=== PATIENT | female | born 1980 | race Caucasian/White ===

== ENCOUNTER 2018-12-24 19:12 | Inpatient (IN) | payer BC ==
--- NOTE | 2018-12-24 20:05 | RAD ---
Portable frontal chest radiograph: 12/24/2018 COMPARISON: 08/03/2015 HISTORY: Heart troubles, dyspnea FINDINGS: Cardiac silhouette is prominent. Stable dual lead transvenous pacing device. Right lung carson ears clear. There is blunting of the left costophrenic angle suggesting left pleural fluid. Cardiac silhouette appears enlarged when compared to the prior exam. IMPRESSION: Findings suggesting interval enlargement of the cardiac silhouette when compared to the p rior exam. This could be related to cardiomegaly or pericardial fluid. Small left pleural effusion suspected as well.
[2018-12-24 20:21] LABS: #Basophils 0.1 thou/uL (0.0-0.2); #Eosinphils 0.1 thou/uL (0.0-0.7); #Lymphocytes 1.7 thou/uL (1.20-3.40); #Monocytes 0.6 thou/uL (0.11-0.59); #Neutrophils 5.3 thou/uL (1.40-6.50); %Basophils 1.1 % (0.0-1.0); %Eosinophils 1.1 % (0.0-10.0); %Monocytes 7.9 % (0.0-10.0); Hemoglobin 11.9 g/dL (12.0-16.0); Mean Corpuscular HGB CONC 29.1 g/dL (32.0-36.0); Mean Corpuscular Hemoglobin 24.2 pg (27.0-31.0); Mean Corpuscular Volume 82.9 fL (78.0-98.0); Mean Platelet Volume 8.7 fL (7.4-10.4); Platelet Count 261 thou/uL (130-400); RBC Distribution Width 17.5 % (11.5-14.5); Red Blood Cell (RBC) Count 4.92 mill/uL (4.20-5.40); White Blood Cell (WBC) Count 7.8 thou/uL (4.8-10.8)
[2018-12-24] MEDS ORDERED: Furosemide 40 MG/4 ML VIAL ONE (20:22)
[2018-12-24 20:38] LABS: ALT (SGPT) 34 U/L (8-55); AST (SGOT) 42 U/L (5-34); Albumin 3.4 g/dL (3.5-5.0); Alkaline Phosphatase 173 U/L (40-150); Anion Gap 17 mmol/L (10-20); BUN (Urea Nitrogen) 15 mg/dL (7.0-18.7); Calc. Creatinine Clearance 0 mL/min (70-130); Carbon Dioxide 19 mmol/L (22-29); Chloride 105 mmol/L (98-107); Estimated GFR-MDRD 74; Globulin 3.2 g/dL (2.4-3.5); Glucose 121 mg/dL (70-105); Potassium 5.6 mmol/L (3.5-5.1); Protein, Total 6.6 g/dL (6.0-8.3); Sodium 135 mmol/L (136-145)
[2018-12-24 21:28] LABS: CKMB 8.4 ng/mL (0-6.6)
[2018-12-24] MEDS ORDERED: Aspirin Chewable 81 MG TAB ONE (21:29)
[2018-12-24] MEDS ORDERED: Enoxaparin Sodium 40 MG/0.4 ML SYRINGE ONE (21:42)
[2018-12-24 22:13] LABS: INR-International Normal Ratio 1.3; PTT 32.8 SEC (22.9-36.1); Prothrombin Time 16.3 SEC (12.0-14.7)
[2018-12-24] MEDS ORDERED: hydrALAZINE 20 MG/ML VIAL SLOW IVP PRN (22:17)
[2018-12-24] MEDS ORDERED: Senokot S 8.6-50 MG TAB PO PRN ×2 (22:17)
[2018-12-24] MEDS ORDERED: cloNIDine 0.1 MG TAB PO PRN (22:17)
[2018-12-24] MEDS ORDERED: Benzonatate 100 MG CAP PO PRN (22:17)
[2018-12-24] MEDS ORDERED: Nitroglycerin 0.4 MG TAB (25 Tab Bottle) SL PRN (22:17)
[2018-12-24] MEDS ORDERED: Sodium Chloride 0.65% Nasal 44 ML BOT EA NARE PRN (22:17)
[2018-12-24] MEDS ORDERED: Bisacodyl 5 MG TAB PO PRN ×2 (22:17)
[2018-12-24] MEDS ORDERED: Diabetic Tussin 200 MG/10 ML UDCUP PO PRN (22:17)
[2018-12-24] MEDS ORDERED: Ondansetron PF 4 MG/2 ML Vial IVP PRN ×2 (22:17)
[2018-12-24 22:58] LABS: BHCG - Serum Negative (NEGATIVE); Pregs Control Background? CLEAR/WHITE (CLR/WHITE); Pregs Control Bar Appear? YES (CONTROL BAR)
[2018-12-25] VITALS: BMI 19.8
[2018-12-25] MEDS ORDERED: Carvedilol 3.125 MG TAB PO SCH (00:30)
--- NOTE | 2018-12-25 00:50 | HP ---
PRIMARY CARE PHYSICIAN: Gwendolyn Mcleod DO CHIEF COMPLAINT: "Fluid retention and shortness of breath." HISTORY OF PRESENTING ILLNESS: Ms. Valle is a 38-year-old female with past medical history of cardiomyopathy as well as history of arrhythmia, status post ablation, as well as history of sick sinus syndrome, status post pacemaker placement, who presented to the emergency room with above-mentioned complaint. History is mainly obtained by the patient herself and electronic medical records have been reviewed. Ms. Colby was last admitted to our facility in August 2015 for same symptoms. She reports that she has been feeling fine for the last few years up until last 2 weeks. She has not really been taking any medications for the last year or so. She has not had any cardiology followup in all these years. She has been seen by Dr. Herbert, while she was in the hospital in 2016. Ms. Valle reports that she has been noticing more and more shortness of breath for the last two weeks and has been noticing that she has been retaining fluid. When I asked her where did she feel that she is retaining fluid: She reports "everywhere". She also endorses orthopnea without any PND. She denies any other recent illnesses like fever, chills, cough, rhinorrhea, or sore throat. She denies any chest pain or chest discomfort. Denies any dysuria, frequency, or urgency. She denies any nausea, vomiting, or diarrhea. She does endorse drug use and her last drug use was about 2 weeks ago. She reports using methamphetamine. Upon presentation to the ER, her blood pressure was 156/96 and she was saturating 92% on 2 L oxygen. Her EKG showed intermittently paced rhythm, left ventricular hypertrophy, and QRS widening, and her chest x-ray showed worsening cardiomegaly. Her lab work was consistent with elevated BNP of 3900 and elevated cardiac enzymes with troponin of 1.616 and CK-MB of 8.4. She was given 40 mg of Lasix as well as one dose of Lovenox 1 mg/kg and is now being admitted to Internal Medicine Service for acute CHF exacerbation. PAST MEDICAL HISTORY: 1. Second-degree heart block for which she underwent pacemaker insertion. 2. History of acute myocarditis with cardiomyopathy. 3. History of anxiety and depression. 4. History of cardiomyopathy. 5. History of atrial tachycardia, status post ablation x2. PAST SURGICAL HISTORY: section and tubal ligation as well as pacemaker insertion. SOCIAL HISTORY: She smokes about 3 to 4 cigarettes a day. Denies any alcohol abuse. FAMILY HISTORY: No history of coronary artery disease or stroke in her family. ALLERGIES: INCLUDE PENICILLIN. CURRENT MEDICATIONS: None reviewed with the patient. REVIEW OF SYSTEMS: A 14-point review of system is done. It is negative except for those mentioned in the history and physical. LABORATORY DATA: Her CBC shows hemoglobin of 11.9, otherwise unremarkable. Serum chemistry shows sodium of 135, potassium 5.6, bicarb 19, blood sugar 121, AST 42, alkaline phosphatase 173, CK-MB 8.4, troponin 1.616. BNP of 3962. test is negative. Chest x-ray by my review shows cardiomegaly with pulmonary vascular congestion. EKG by my review shows independently paced rhythm at 82 beats per minute with left ventricular hypertrophy. PHYSICAL EXAMINATION: VITAL SIGNS: Upon presentation, blood pressure 156/96, respirations 20, saturating 92% on 2 L oxygen, pulse of 64, and temperature 99.9. GENERAL: The patient is in no acute distress. She appears hyperactive, however, mother is at bedside. She is awake, alert, and oriented x3. HEENT: Mucous membrane is moist and pink. No oropharyngeal exudate or erythema. Head is normocephalic and atraumatic. Pupils are equal and reactive to light and accommodation. Extraocular movement intact. NECK: Supple without any lymphadenopathy, JVD, or bruit. CHEST: Clear to auscultation without any wheezing, rales, or rhonchi. Rate and rhythm are regular without any murmurs, rubs, or gallops. Pacemaker to the left anterior chest wall is noticed. ABDOMEN: Soft and nontender. There is no rebound, guarding, or rigidity. She has mild distention of the abdomen. EXTREMITIES: Show +1 pitting edema bilaterally. SKIN: Show erythema to her knees bilaterally as well as her fingers which she reports is chronic for her. PSYCHIATRIC: Hyperactive effect. NEUROLOGICAL: Nonfocal. IMPRESSION AND PLAN: 1. Acute on chronic systolic congestive heart failure exacerbation. The patient has been noncompliant with the medications. She most likely has worsening of her ejection fraction because of underlying cardiomyopathy as well as continued drug abuse. We will diurese her with Lasix twice a day and restart her on beta max, MICHAEL inhibitor, and aspirin. We will consult Cardiology for further recommendations. Strict I's and O's will be monitored, and she will be on fluid restricted heart healthy diet. We will also consult [facility] Failure [facility] as well as cardiac rehab while she is here. 2. Elevated troponin. This is likely type 2 AZ from demand ischemia from congestive heart failure. We will continue to trend serial cardiac enzymes and restart beta max, MICHAEL inhibitor/ARB, and aspirin. She will be continued on therapeutic dose of Lovenox for now 1 mg/kg. 3. Hyperkalemia. We will give Lasix and monitor potassium levels closely. She has no evidence of renal failure. 4. Metabolic acidosis, most likely due to poor peripheral perfusion from congestive heart failure. Recheck in the morning. 5. History of sick sinus syndrome, status post pacemaker placement. We will obtain a pacemaker interrogation print out. 6. History of cardiomyopathy. Echocardiogram will be repeated. 7. Hypertension. Restart beta max and ARB and adjust the dose as needed. 8. Drug abuse. The patient has been counseled. 9. DVT and GI prophylaxis. DISPOSITION: Ms. Valle is currently being admitted to the hospital with acute on chronic congestive heart failure exacerbation and non-ST elevation AZ/type 2 AZ. Further management will depend upon her clinical course. ESTIMATED LENGTH OF STAY: At this time is at least 2 to 3 midnights. Job ID: [id number]
[2018-12-25 03:05] LABS: #Eosinphils 0.1 thou/uL (0.0-0.7); #Lymphocytes 1.8 thou/uL (1.20-3.40); #Monocytes 0.6 thou/uL (0.11-0.59); %Basophils 0.7 % (0.0-1.0); %Eosinophils 1.7 % (0.0-10.0); %Lymphocytes 26.7 % (21.0-51.0); %Monocytes 9.6 % (0.0-10.0); %Neutrophils 61.3 % (42.0-75.0); Hemoglobin 11.6 g/dL (12.0-16.0); Mean Corpuscular HGB CONC 30.7 g/dL (32.0-36.0); Mean Corpuscular Hemoglobin 24.8 pg (27.0-31.0); Mean Corpuscular Volume 80.7 fL (78.0-98.0); Mean Platelet Volume 8.9 fL (7.4-10.4); Platelet Count 253 thou/uL (130-400); RBC Distribution Width 17.4 % (11.5-14.5); Red Blood Cell (RBC) Count 4.67 mill/uL (4.20-5.40); White Blood Cell (WBC) Count 6.6 thou/uL (4.8-10.8)
[2018-12-25 03:33] LABS: ALT (SGPT) 31 U/L (8-55); AST (SGOT) 43 U/L (5-34); Albumin 3.3 g/dL (3.5-5.0); Alkaline Phosphatase 169 U/L (40-150); Anion Gap 16 mmol/L (10-20); BUN (Urea Nitrogen) 14 mg/dL (7.0-18.7); Bilirubin, Total 0.8 mg/dL (0.2-1.2); Calc. Creatinine Clearance 62 mL/min (70-130); Calcium 9.1 mg/dL (7.8-10.44); Carbon Dioxide 21 mmol/L (22-29); Chloride 103 mmol/L (98-107); Estimated GFR-MDRD 72; Globulin 3.2 g/dL (2.4-3.5); Glucose 108 mg/dL (70-105); Magnesium 1.7 mg/dL (1.6-2.6); Protein, Total 6.5 g/dL (6.0-8.3); Sodium 136 mmol/L (136-145)
[2018-12-25 03:54] LABS: Troponin I 2.235 ng/mL (< 0.028)
[2018-12-25] MEDS: Furosemide 40 MG/4 ML VIAL SLOW IVP SCH ×2 (05:46→13:41)
--- NOTE | 2018-12-25 08:15 | PDOC.PN ---
- Subjective Encounter Start Date: 12/25/18 Encounter Start Time: 10:10 Subjective: Patient reports SOB resolved. Urinating very well with Lasix. No other -: complaints. No chest pain. - Objective MAR Reviewed: Yes Vital Signs & Weight: Vital Signs (12 hours) Temp Pulse Resp BP BP Pulse Ox 12/25/18 04:00 97.6 F 18 138/92 H 99 12/24/18 23:49 97.9 F 67 18 163/89 H 100 12/24/18 22:20 99 Weight Weight 97 lb 14.4 oz I&O: 12/24/18 12/25/18 12/26/18 06:59 06:59 06:59 Intake Total 480 Output Total 1500 Balance -1020 Result Diagrams: 12/25/18 02:43 12/25/18 02:43 Phys Exam - Physical Examination Constitutional: NAD HEENT: moist MMs Respiratory: no wheezing, no rales, no rhonchi Cardiovascular: RRR, no significant murmur Gastrointestinal: soft, positive bowel sounds Musculoskeletal: no edema Neurological: non-focal, moves all 4 limbs Psychiatric: normal affect, A&O x 3 Dx/Plan (1) Acute on chronic systolic CHF (congestive heart failure) Code(s): I50.23 - ACUTE ON CHRONIC SYSTOLIC (CONGESTIVE) HEART FAILURE Status : Acute Comment: ECHO, Lasix (2) NSTEMI (non-ST elevated myocardial infarction) Code(s): I21.4 - NON-ST ELEVATION (NSTEMI) MYOCARDIAL INFARCTION Status: Acute Comment: likely due to demand ischemia from CHF exacerbation (3) cardiomyopathy Code(s): O90.3 - PERIPARTUM CARDIOMYOPATHY Status: Chronic (4) Drug abuse Code(s): F19.10 - OTHER PSYCHOACTIVE SUBSTANCE ABUSE, UNCOMPLICATED Status: Chronic Comment: methamphetamine, patient determined to quit, planning on going to drug rehab after discharge (5) Sick sinus syndrome Code(s): I49.5 - SICK SINUS SYNDROME Status: Chronic Comment: s/p pacemaker - Plan cont current plan of care, DVT proph w/lovenox, DVT proph w/SCDs continue diuresis -: Lovenox, ASA, ARB, Carvedilol, Cardiology consult * . - Discharge Day Encounter end time: 10:20
[2018-12-25] MEDS: Aspirin 325 MG TAB PO SCH (08:17)
[2018-12-25] MEDS: Famotidine 20 MG TAB PO SCH ×2 (08:17→20:19)
[2018-12-25] MEDS: Carvedilol 3.125 MG TAB PO SCH ×2 (08:17→20:19)
[2018-12-25] MEDS: Losartan 25 MG TAB PO SCH (08:18)
[2018-12-25] MEDS: Enoxaparin Sodium 60 MG/0.6 ML SYRINGE SC SCH ×2 (08:18→20:18)
[2018-12-25 11:16] LABS: Critical Call Chem Troponin I RESULT DECREASING; Troponin I 2.019 ng/mL (< 0.028)
--- NOTE | 2018-12-25 17:41 | CON ---
DATE OF CONSULTATION: 12/25/2018 INDICATION FOR CONSULTATION: A 38-year-old female with a history of cardiomyopathy. HISTORY OF PRESENT ILLNESS: This very unfortunate 38-year-old female was followed by me for quite some time. I have not seen in the last several years. She has had history of SVT in the past, underwent ablation. She then eventually, I believe had an AVJ ablation, underwent pacemaker insertion. She has had severe decrease in left ventricular systolic function. Ejection fraction was low at 10% to 15%. She then; however, had improvement in ejection fraction all the way up to about 50%. She had been lost to followup. Apparently almost 6 months to a year, she stopped taking her medication. She had been doing methamphetamines again and had noticed that she had increasing lower extremity edema, shortness of breath, and was advised to be seen in the office. We did schedule her for an appointment, but she has not yet been seen in the office. She presented to the emergency room after she has started having more lower extremity edema and shortness of breath. Her echocardiogram at this time shows again ejection fraction of 30% to 35% at this time at best. She has pacemaker leads noted in the right atrium and right ventricle. She does have what appears to be left ventricular hypertrophy also and has a small pericardial effusion. At this time, she was given IV diuretics in the emergency room and has diuresed a significant amount. Her breathing has improved. Her vital signs remained stable. Her blood pressure is elevated today at 150/89 and earlier today was 138/92. She has put out over 1 L negative since she has been admitted to the floor. At this time, we just need to continue with her medical treatment and we will see whether the ejection fraction improves. If she does not improve in ejection fraction, she may need to undergo implantation with an AICD. PAST MEDICAL HISTORY: Significant for the SVT ablations, history of cardiomyopathy, and pacemaker insertion. She has history of anxiety and depression. She has had a . She has had bilateral tubal ligations. SOCIAL HISTORY: She is . She has 2 children. She continues to smoke only a few cigarettes a day apparently, but unfortunately still continues to do methamphetamines. MEDICATIONS: Her present medications, she does no longer taking medicines. Previously, she had been taking; 1. Coreg. 2. Aldactone. 3. Lisinopril. 4. Lexapro. 5. As well as Lasix. 6. Also p.r.n. [place]. REVIEW OF SYSTEMS: A 12-point review of systems unremarkable. There was no history of present illness. ALLERGIES: SHE IS ALLERGIC TO PENICILLIN. FAMILY HISTORY: Noncontributory. There is no early heart disease of this sort. PHYSICAL EXAMINATION: GENERAL: Reveals a very thin, ill-appearing female. VITAL SIGNS: Blood pressure as noted was 130/92 and increased up to 150/89. She is afebrile. Heart rate is in the 60s and she was pacing majority of the time. She has atrial pacing and ventricular pacing. She has according to the evaluation of the pacemaker, she has ventricular pacing about 37% of the time. CHEST: Clear to auscultation. CARDIOVASCULAR: At this time reveals a regular rate and rhythm. I do not hear any heart murmurs, bruits, thrills, heaves, or bruits. ABDOMEN: Slightly tender, somewhat distended, but most likely appears to be some ascites. Positive bowel sounds are present. EXTREMITIES: Show no clubbing or cyanosis. Pedal pulses are present. NEUROLOGIC: She appears to be intact. She is tearful during the evaluation. SKIN: Warm and dry. LABORATORY DATA: Shows a hemoglobin of 11.6, WBC of 6.6, and platelet count was 253,000. Her INR was 1.3. Her potassium was 4.0 and creatinine 0.89. Troponin I was elevated at 2.2, is now decreased down to 2.0. BNP was elevated at 3887. IMPRESSION AND PLAN: 1. Acute on chronic systolic heart failure with elevated BNP, abnormal cardiac enzymes, most likely due to demand ischemia associated with cardiomyopathy. She will continue on her diuretics as well as angiotensin-converting enzyme inhibitors and beta blockers. 2. History of pacemaker insertion. On the echocardiogram today, it was noted on the atrial lead, there appears to be some type of thrombus formation or fibrin deposit. It does not appear to be vegetation, but is most likely not a vegetation since the WBC is not elevated and she has not been febrile. Does not appear to be endocarditis. Given her decreased ejection fraction, she may need to be placed on anticoagulation for a while to see if this will resolve, but she has smoke formation of the left ventricle due to severe decrease in left ventricular systolic function. 3. History of supraventricular tachycardia. It appears by evaluation of pacemaker. She may still be having supraventricular tachycardia at times, but has had a possible AVJ ablation. She has not had any significant ventricular high rates associated with this. We will re-evaluate the patient when she has been treated medically. I suspect she will be in the hospital for the next few days. After that, she has agreed to go to inpatient rehab for her illegal drug use. Job ID: [id number]
[2018-12-25] MEDS: Acetaminophen 325 MG TAB PO PRN (20:19)
[2018-12-26 04:37] LABS: Hemoglobin 13.3 g/dL (12.0-16.0); Platelet Count 275 thou/uL (130-400)
[2018-12-26 05:04] LABS: Critical Call Chem Troponin I RESULT DECREASING; Troponin I 1.671 ng/mL (< 0.028)
[2018-12-26] MEDS: Furosemide 40 MG/4 ML VIAL SLOW IVP SCH (05:33)
--- NOTE | 2018-12-26 08:00 | PDOC.PN ---
- Subjective Encounter Start Date: 12/26/18 Encounter Start Time: 13:40 Subjective: Patient with marked improvement in SOB. No more leg swelling. Ambulating -: well without SOB. A bit anxious being stuck in hospital. Some soreness to -: back from being in bed. Mother worried she will resume drugs when sheleaves - Objective MAR Reviewed: Yes Vital Signs & Weight: Vital Signs (12 hours) Temp Pulse Resp BP Pulse Ox 12/26/18 04:00 98.3 F 60 19 132/75 97 Weight Weight 91 lb 8 oz I&O: 12/25/18 12/26/18 12/27/18 06:59 06:59 06:59 Intake Total 480 1230 Output Total 1500 2350 Balance -1020 -1120 Result Diagrams: 12/26/18 04:29 12/26/18 04:29 Additional Labs: Accuchecks 12/25/18 11:02 POC Glucose 97 Phys Exam - Physical Examination Constitutional: NAD HEENT: moist MMs Respiratory: no wheezing, no rales, no rhonchi Cardiovascular: RRR Gastrointestinal: soft, positive bowel sounds Musculoskeletal: no edema mild TTP bilateral lower thoracic spine and paraspinal muscles Neurological: non-focal, moves all 4 limbs Psychiatric: A&O x 3 Deviation from normal: labile affect Dx/Plan (1) Acute on chronic systolic CHF (congestive heart failure) Code(s): I50.23 - ACUTE ON CHRONIC SYSTOLIC (CONGESTIVE) HEART FAILURE Status : Acute Comment: ECHO with 30-35% EF, thrombus on RA pacer lead, getting Lasix , Coreg, Losartan, Lovenox, will leave decision on prolonged anticoagulation up to Dr. Herbert (2) NSTEMI (non-ST elevated myocardial infarction) Code(s): I21.4 - NON-ST ELEVATION (NSTEMI) MYOCARDIAL INFARCTION Status: Acute Comment: likely due to demand ischemia from CHF exacerbation (3) cardiomyopathy Code(s): O90.3 - PERIPARTUM CARDIOMYOPATHY Status: Chronic (4) Drug abuse Code(s): F19.10 - OTHER PSYCHOACTIVE SUBSTANCE ABUSE, UNCOMPLICATED Status: Chronic Comment: methamphetamine, patient determined to quit, planning on going to drug rehab after discharge (5) Sick sinus syndrome Code(s): I49.5 - SICK SINUS SYNDROME Status: Chronic Comment: s/p pacemaker - Plan cont current plan of care, PT/OT, DVT proph w/lovenox Plan for Lifevest. Mother trying to get patient into inpatient rehab for -: drug use. * . - Discharge Day Encounter end time: 13:50
[2018-12-26] MEDS: Losartan 25 MG TAB PO SCH (08:04)
[2018-12-26] MEDS: Aspirin 325 MG TAB PO SCH (08:04)
[2018-12-26] MEDS: Enoxaparin Sodium 60 MG/0.6 ML SYRINGE SC SCH (08:05)
[2018-12-26] MEDS: Carvedilol 3.125 MG TAB PO SCH ×2 (08:05→22:28)
[2018-12-26] MEDS: Famotidine 20 MG TAB PO SCH ×2 (08:05→22:28)
--- NOTE | 2018-12-26 11:32 | PDOC.CTH ---
Cardiology Progress Note - Subjective The pt seen and examined. No overnight events. No cardiac complaints. She walked with PT without any SOB or other cardiac complaints. - Objective Vital Signs Temp Pulse Resp BP Pulse Ox 12/26/18 08:01 99.4 F 64 18 131/81 98 12/26/18 04:00 98.3 F 60 19 132/75 97 Weight 91 lb 8 oz 12/25/18 12/26/18 12/27/18 06:59 06:59 06:59 Intake Total 480 1230 Output Total 1500 2350 Balance -1020 -1120 - Physical Examination General/Neuro: alert & oriented x3 Neck: no JVD present Lungs: CTA Heart: RRR Abdomen: soft Extremities: other: (No edema) - Telemetry Telemetry Rhythm: SR - Labs Result Diagrams: 12/26/18 04:29 12/26/18 04:29 Troponin/CKMB CK-MB (CK-2) 8.4 ng/mL (0-6.6) H* 12/24/18 20:04 Troponin I 1.671 ng/mL (< 0.028) H* 12/26/18 04:29 - Assessment/Plan 1. Acute on chronic systolic HF with EF 25-30% - On ARB, bblocker, and Lasix; will start Entresto 24/26mg BID from today. May stop Losartan 2. NSTEMI 2/2 demand ischemia from CHF exacerbation - stable; denied any cardiac complaints. 3. CMY - will order LifeVest on d/c 4. Hx of PM placement 2/2 SVT RFA in 2002 - 5. Ilicit drug abuse - cardiomyopathy; patient determined to quit, planning on going to drug rehab after discharge 6. 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 "smoke" in LV by TTE - May start OAC on D/C OCT reviewed * Echo on 12/25/2018 with EF 25-30%, "smoke" formation in LV, mild-mod LVH, mild LA, thrombus vs Vegetation noted to PM lead in RA, mild MR, TR, and VA, mild pericardiac effusion. Pt. seen and eval. by me. I agree with the A/P by the QUALITY TESTER. Chest clear. RRR. Continue meds as above. If tolerating meds then home tomorrow. Review of Systems - Review of Systems Constitutional: reports: no symptoms reported EENTM: reports: no symptoms reported Respiratory: reports: no symptoms reported Cardiac (ROS): reports: no symptoms reported ABD/GI: reports: no symptoms reported : reports: no symptoms reported Musculoskeletal: reports: no symptoms reported
[2018-12-26] MEDS ORDERED: Sacubitril 24.5 MG/Valsartan 25.5 MG TABLET PO SCH (12:00)
[2018-12-26] MEDS ORDERED: Ibuprofen 200 MG TAB PO PRN (13:19)
[2018-12-26] MEDS: Furosemide 40 MG TAB PO SCH (13:25)
[2018-12-26] MEDS: Acetaminophen 325 MG TAB PO PRN (14:10)
[2018-12-26] MEDS: Apixaban 5 MG TAB PO SCH (22:27)
[2018-12-26] MEDS: Sacubitril 24.5 MG/Valsartan 25.5 MG TABLET PO SCH (22:27)
[2018-12-27 06:49] LABS: Anion Gap 17 mmol/L (10-20); BUN (Urea Nitrogen) 24 mg/dL (7.0-18.7); Calc. Creatinine Clearance 65 mL/min (70-130); Calcium 9.1 mg/dL (7.8-10.44); Carbon Dioxide 23 mmol/L (22-29); Chloride 102 mmol/L (98-107); Estimated GFR-MDRD 86; Glucose 140 mg/dL (70-105); Sodium 139 mmol/L (136-145)
[2018-12-27 07:05] LABS: Potassium 2.8 mmol/L (3.5-5.1)
--- NOTE | 2018-12-27 07:59 | PDOC.PN ---
- Subjective Encounter Start Date: 12/27/18 Encounter Start Time: 10:00 Subjective: Patient reports no SOB/cough/edema. Back pain somewhat better. Ambulating -: well. Mother has found an inpatient drug rehab. Patient has various -: excuses for why she can't go right away. They are continuing to discuss. - Objective MAR Reviewed: Yes Vital Signs & Weight: Vital Signs (12 hours) Temp Pulse Resp BP Pulse Ox 12/27/18 04:00 98.7 F 61 18 126/69 97 12/26/18 20:00 98.5 F 61 18 115/61 98 Weight Weight 89 lb 1.6 oz I&O: 12/26/18 12/27/18 12/28/18 06:59 06:59 06:59 Intake Total 1230 1240 Output Total 2350 2400 Balance -1120 -1160 Result Diagrams: 12/26/18 04:29 12/27/18 05:34 Phys Exam - Physical Examination Constitutional: NAD HEENT: moist MMs Respiratory: no wheezing, no rales, no rhonchi Cardiovascular: RRR, no significant murmur Gastrointestinal: soft, positive bowel sounds Musculoskeletal: no edema, pulses present Neurological: non-focal, moves all 4 limbs Psychiatric: normal affect, A&O x 3 Dx/Plan (1) Acute on chronic systolic CHF (congestive heart failure) Code(s): I50.23 - ACUTE ON CHRONIC SYSTOLIC (CONGESTIVE) HEART FAILURE Status : Acute Comment: ECHO with 30-35% EF, thrombus on RA pacer lead, getting Lasix , Coreg, Losartan, Elliquis (2) NSTEMI (non-ST elevated myocardial infarction) Code(s): I21.4 - NON-ST ELEVATION (NSTEMI) MYOCARDIAL INFARCTION Status: Acute Comment: likely due to demand ischemia from CHF exacerbation (3) cardiomyopathy Code(s): O90.3 - PERIPARTUM CARDIOMYOPATHY Status: Chronic (4) Drug abuse Code(s): F19.10 - OTHER PSYCHOACTIVE SUBSTANCE ABUSE, UNCOMPLICATED Status: Chronic Comment: methamphetamine, patient determined to quit, planning on going to drug rehab after discharge (5) Sick sinus syndrome Code(s): I49.5 - SICK SINUS SYNDROME Status: Chronic Comment: s/p pacemaker (6) Hypokalemia Code(s): E87.6 - HYPOKALEMIA Status: Acute Comment: repleting and will recheck in afternoon - Plan cont current plan of care plan for d/c once potassium repleted, going to go to an inpatient drug -: rehab that mother is setting up * . - Discharge Day Encounter end time: 10:15
[2018-12-27] MEDS ORDERED: Potassium Chloride 20 MEQ TAB PO SCH ×2 (08:30→12:00)
[2018-12-27] MEDS: Aspirin 325 MG TAB PO SCH (09:20)
[2018-12-27] MEDS: Carvedilol 3.125 MG TAB PO SCH (09:21)
[2018-12-27] MEDS: Famotidine 20 MG TAB PO SCH (09:21)
[2018-12-27] MEDS: Losartan 25 MG TAB PO SCH (09:21)
[2018-12-27] MEDS: Furosemide 40 MG TAB PO SCH (09:21)
[2018-12-27] MEDS: Apixaban 5 MG TAB PO SCH (09:22)
[2018-12-27] MEDS: Sacubitril 24.5 MG/Valsartan 25.5 MG TABLET PO SCH (09:22)
--- NOTE | 2018-12-27 09:24 | PDOC.CTH ---
Cardiology Progress Note - Subjective The pt seen and examined. No overnight events. No cardiac complaints. - Objective Vital Signs Temp Pulse Resp BP Pulse Ox 12/27/18 07:55 99.9 F H 60 14 118/84 96 12/27/18 04:00 98.7 F 61 18 126/69 97 Weight 89 lb 1.6 oz 12/26/18 12/27/18 12/28/18 06:59 06:59 06:59 Intake Total 1230 1240 Output Total 2350 2400 Balance -1120 -1160 - Physical Examination General/Neuro: alert & oriented x3 Neck: no JVD present Lungs: CTA Heart: RRR Abdomen: soft Extremities: other: (No edema) - Telemetry Telemetry Rhythm: AV paced - Labs Result Diagrams: 12/26/18 04:29 12/27/18 05:34 Troponin/CKMB CK-MB (CK-2) 8.4 ng/mL (0-6.6) H* 12/24/18 20:04 Troponin I 1.671 ng/mL (< 0.028) H* 12/26/18 04:29 - Assessment/Plan 1. Acute on chronic systolic HF with EF 25-30% - On ARB, bblocker, Lasix, and Entresto 24/26mg BID. May stop Losartan if hypotensive. 2. NSTEMI 2/2 demand ischemia from CHF exacerbation - stable; denied any cardiac complaints. 3. Drug induced CMY - will order LifeVest on d/c 4. Hx of PM placement 2/2 SVT RFA in 2002 - cont. to monitor on tele 5. Ilicit drug abuse - cardiomyopathy; patient determined to quit, planning on going to drug rehab after discharge 6. 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 "Smoke" in LV by TTE - On Eliquis 5mg BID; will decrease ASA from 325mg to 81mg due to starting Eliquis MAR reviewed * Echo on 12/25/2018 with EF 25-30%, "smoke" formation in LV, mild-mod LVH, mild LA, thrombus vs Vegetation noted to PM lead in RA, mild MR, TR, and PA, mild pericardiac effusion. * From Cardiac standpoint, the pt is stable to d/c home. The pt will f/u with Dr Herbert' office on 01/01/2019 (she already has the appt prior to this hospital admission) * The pt will be d/kyle with: Matilda, coupon of Laura (the coupons were already given to the pt.) Pt. seen and eval. by me. I agree with the A/P by the ONLINE PRODUCER. Good diuresis. Will decrease lasix to once a day. Chest clear. RRR. AP/CIRCUIT DESIGNER. From a cardiac standpoint the pt. can be d/c'd. gjm Review of Systems - Review of Systems Constitutional: reports: no symptoms reported EENTM: reports: no symptoms reported Respiratory: reports: no symptoms reported Cardiac (ROS): reports: no symptoms reported ABD/GI: reports: no symptoms reported : reports: no symptoms reported Musculoskeletal: reports: no symptoms reported
[2018-12-27 16:00] LABS: Anion Gap 15 mmol/L (10-20); BUN (Urea Nitrogen) 21 mg/dL (7.0-18.7); Calc. Creatinine Clearance 56 mL/min (70-130); Calcium 8.9 mg/dL (7.8-10.44); Carbon Dioxide 26 mmol/L (22-29); Chloride 102 mmol/L (98-107); Estimated GFR-MDRD 73; Glucose 95 mg/dL (70-105); Potassium 4.7 mmol/L (3.5-5.1); Sodium 138 mmol/L (136-145)
[2018-12-27 16:22] VITALS: BP 114/60; TEMP 98.3
--- NOTE | 2018-12-28 01:13 | DIS ---
DATE OF ADMISSION: 12/24/2018 DATE OF DISCHARGE: 12/27/2018 PRIMARY CARE PHYSICIAN: Gwendolyn Mcleod DO REASON FOR ADMISSION: CHF exacerbation. DIAGNOSES AT DISCHARGE: 1. Acute on chronic systolic congestive heart failure with ejection fraction of 30% to 35% and a thrombus on the right atrial pacer lead. 2. Non ST-elevation myocardial infarction due to demand ischemia from the congestive heart failure exacerbation. 3. cardiomyopathy. 4. Drug abuse with methamphetamines. 5. Sick sinus syndrome with previous pacemaker. 6. Hypokalemia, resolved. PROCEDURES: Echocardiogram showing ejection fraction of 25% to 30%, smoke formation noted in the left ventricle, also with thrombus noted on the pacemaker lead in the right atrium. CONSULTATIONS: Cardiology, Dr. Herbert. SUMMARY OF HOSPITAL COURSE: This is a 38-year-old female with a history of cardiomyopathy as well as arrhythmia status post ablation, sick sinus syndrome and a pacemaker. She presented to the emergency room after having stopped her medicines the last year or so and gotten into using methamphetamines. She developed progressive fluid retention and shortness of breath and so presented to the hospital. She was noted to be in florid congestive heart failure and also had an elevated troponin and Dr. Herbert was consulted. The patient was given diuresis with resolution of all her symptoms. She was able to ambulate without shortness of breath, was able to lie flat and had no more symptoms on the day of discharge. The patient was noted to have the above findings on echocardiogram. She has a very poor ejection fraction and the thrombus on the pacer lead. The patient was started on Lovenox anticoagulation, which eventually transitioned over to Eliquis. She was also started on Entresto. The patient did admit that she had a problem with drugs and was open to doing inpatient drug rehabilitation. Her mother was able to find that her insurance covered and the plan is for her to discharge from here and go to inpatient drug rehab. On the day of discharge, the patient did have some low potassium. This was repleted orally, a recheck was normal, so she is being discharged home. DISCHARGE MANAGEMENT: Location: Discharged home. Followup: Follow up with Dr. Herbert on 01/01/2019 at 11:30 a.m. Activity: As tolerated. Diet: Fluid restricted, healthy heart, low-sodium diet. Equipment and supplies: She is being discharged with a LifeVest. DISCHARGE MEDICATIONS: 1. Eliquis 5 mg twice a day, 60 tablets dispensed and a coupon given. 2. Entresto 24.5/25.5 mg one tablet twice a day, 60 tablets dispensed and a 1-month coupon. 3. Aspirin 81 mg daily, 30 tablets dispensed. 4. Carvedilol 3.125 mg twice a day, 60 tablets dispensed. 5. Parafon Forte 500 mg 3 times a day as needed for back spasm, 20 tabs dispensed. 6. Furosemide 40 mg daily, 30 tablets dispensed. 7. Losartan 12.5 mg daily, 30 tablets dispensed. 8. Potassium chloride 10 mEq daily, 30 tablets dispensed. Arranging the details of this discharge took 32 minutes. Job ID: [id number]
[2018-12-28] MEDS ORDERED: Furosemide 40 MG TAB PO SCH (07:30)
[2018-12-28] MEDS ORDERED: Aspirin 81 mg Enteric Coated Tablet PO SCH (09:00)
== END 2018-12-27 19:44 | disposition home or self-care (01) | DRG 280 ==
LOC: ERS 19:12 → 2NO 23:54
PROVIDERS: ADMIT Internal Medicine; ATTEND Internal Medicine
DX: I21.A1 Myocardial infarction type 2 (principal); O90.3 Peripartum cardiomyopathy; I50.23 Acute on chronic systolic (congestive) heart failure; E87.2 Acidosis; I11.0 Hypertensive heart disease with heart failure; I44.1 Atrioventricular block, second degree; F41.9 Anxiety disorder, unspecified; F32.9 Major depressive disorder, single episode, unspecified; E87.5 Hyperkalemia; F17.210 Nicotine dependence, cigarettes, uncomplicated; E87.6 Hypokalemia; I08.1 Rheumatic disorders of both mitral and tricuspid valves; F19.10 Other psychoactive substance abuse, uncomplicated; Z98.51 Tubal ligation status; Z91.14 Patient's other noncompliance with medication regimen; Z95.0 Presence of cardiac pacemaker; Z88.0 Allergy status to penicillin; Z79.899 Other long term (current) drug therapy
CPT/HCPCS: 36415; 36416; 71045; 80048; 80053; 82553; 82565; 83735; 83880; 84443; 84484; 84703; 85014; 85018; 85025; 85049; 85610; 85730; 90471; 90732; 93005; 93306; 93798; 94760; 96372; 96374; G0009; J1650; J1940

== ENCOUNTER 2019-05-21 08:34 | Day surgery (SDC) | payer BC ==
[2019-05-18 15:15] VITALS: BMI 19.3
[2019-05-21 09:44] LABS: #Basophils 0.1 thou/uL (0.0-0.2); #Eosinphils 0.7 thou/uL (0.0-0.7); #Lymphocytes 2.1 thou/uL (1.20-3.40); #Monocytes 0.7 thou/uL (0.11-0.59); #Neutrophils 5.3 thou/uL (1.40-6.50); %Basophils 0.7 % (0.0-1.0); %Eosinophils 8.3 % (0.0-10.0); %Lymphocytes 23.4 % (21.0-51.0); %Monocytes 7.6 % (0.0-10.0); %Neutrophils 60.1 % (42.0-75.0); Hemoglobin 14.9 g/dL (12.0-16.0); Mean Corpuscular HGB CONC 32.2 g/dL (32.0-36.0); Mean Corpuscular Hemoglobin 29.6 pg (27.0-31.0); Mean Corpuscular Volume 91.8 fL (78.0-98.0); Platelet Count 300 thou/uL (130-400); RBC Distribution Width 13.5 % (11.5-14.5); Red Blood Cell (RBC) Count 5.02 mill/uL (4.20-5.40); White Blood Cell (WBC) Count 8.9 thou/uL (4.8-10.8)
[2019-05-21 09:49] LABS: Prothrombin Time 13.5 SEC (12.0-14.7)
[2019-05-21 09:59] LABS: Anion Gap 12 mmol/L (10-20); BUN (Urea Nitrogen) 22 mg/dL (7.0-18.7); Calc. Creatinine Clearance 44 mL/min (70-130); Calcium 9.3 mg/dL (7.8-10.44); Carbon Dioxide 24 mmol/L (22-29); Chloride 106 mmol/L (98-107); Estimated GFR-MDRD 51; Glucose 96 mg/dL (70-105); Potassium 4.3 mmol/L (3.5-5.1); Sodium 138 mmol/L (136-145)
[2019-05-21] MEDS ORDERED: Iopamidol 370 76% 50 ML VIAL FS ONE (12:26)
[2019-05-21] MEDS ORDERED: Levofloxacin 500 mg/D5W 100 ml Premix Bag ONE (13:22)
[2019-05-21] MEDS ORDERED: Lidocaine 1% (PF) 30 ML VIAL ONE (13:22)
[2019-05-21] MEDS ORDERED: Clindamycin/D5W 900 mg/50 ml Premix Bag ONE (13:22)
[2019-05-21] MEDS ORDERED: Glycopyrrolate 0.2 MG/ML 5 ML SYRINGE ONE (13:31)
[2019-05-21] MEDS ORDERED: Midazolam HCl 2 mg/2 ml Vial ONE (13:31)
[2019-05-21] MEDS ORDERED: Ketamine 50 MG/ML (10ML VIAL) ONE (13:31)
[2019-05-21] MEDS ORDERED: Fentanyl 100 MCG/2 ML VIAL ONE (13:31)
[2019-05-21] MEDS ORDERED: Propofol 500 MG/50 ML VIAL ONE (13:31)
[2019-05-21] MEDS ORDERED: PROPOFOL 200 MG/20 ML VIAL ONE (13:54)
[2019-05-21] MEDS ORDERED: PHENYLEPHRINE-NS 100 MCG/ML 10 ML SYRINGE ONE (13:54)
[2019-05-21] MEDS ORDERED: Phenylephrine HCL 10 MG/ML VIAL ONE (14:38)
[2019-05-21] MEDS ORDERED: Ondansetron HCl/PF 4 MG/2 ML Vial IVP PRN (14:44)
[2019-05-21] MEDS ORDERED: Promethazine HCl 25 MG/ML VIAL SLOW IVP PRN (14:44)
[2019-05-21] MEDS ORDERED: Promethazine HCl 25 MG/ML VIAL IM PRN (14:44)
--- NOTE | 2019-05-21 16:58 | RAD ---
EXAM: XR Chest 1 View PROVIDED CLINICAL HISTORY: Status post defibrillator placement COMPARISON: 12/24/2018 FINDINGS: The cardiac silhouette remains enlarged. Left subclavian cardiac pacing device is noted with lead tip s overlying the expected locations of RA, RV and coronary sinus. No focal consolidation, pleural fluid or pneumothorax apparent with limitations due to obscuration of portions of the left hemithorax by cardiac pacing device generator. IMPRESSION: As above.
[2019-05-21] MEDS ORDERED: Acetaminophen 325 MG TAB ONE (17:43)
--- NOTE | 2019-05-23 19:46 | EKG ---
Test Reason : PREOP Blood Pressure : / mmHG Vent. Rate : 066 BPM Atrial Rate : 066 BPM P-R Int : 260 ms QRS Dur : 176 ms QT Int : 488 ms P-R-T Axes : 044 -71 101 degrees QTc Int : 511 ms AV sequential or dual chamber electronic pacemaker When compared with ECG of 24-DEC-2018 20:03, Previous ECG has undetermined rhythm, needs review Confirmed by SAMMY LYONS, SCristobal ([id number]) on 05/23/2019 7:46:29 PM Referred By: [facility] Confirmed By:DR. Jae CHRISTIANSON MD
--- NOTE | 2019-05-23 19:51 | EKG ---
Test Reason : POST OP Blood Pressure : / mmHG Vent. Rate : 061 BPM Atrial Rate : 061 BPM P-R Int : 148 ms QRS Dur : 150 ms QT Int : 548 ms P-R-T Axes : 057 143 -54 degrees QTc Int : 551 ms AV dual-paced rhythm Biventricular pacemaker detected Abnormal ECG When compared with ECG of 21-MAY-2019 09:37, (Unconfirmed) Vent. rate has decreased BY 5 BPM Confirmed by SAMMY LYONS, SCristobal ([id number]) on 05/23/2019 7:51:27 PM Referred By: [facility] Confirmed By:DR. Jae CHRISTIANSON MD
== END 2019-05-21 19:20 | disposition home or self-care (01) ==
LOC: CCL 08:34
PROVIDERS: ATTEND Internal Medicine Cardiovascular Disease
PROC: 02H43KZ Insertion of Defibrillator Lead into Coronary Vein, Percutaneous Approach (ICD-10-PCS; principal; 2019-05-21)
PROC: 0JPT0PZ Removal of Cardiac Rhythm Related Device from Trunk Subcutaneous Tissue and Fascia, Open Approach (ICD-10-PCS; principal; 2019-05-21)
PROC: 0JH609Z Insertion of Cardiac Resynchronization Defibrillator Pulse Generator into Chest Subcutaneous Tissue and Fascia, Open Approach (ICD-10-PCS; principal; 2019-05-21)
DX: I11.0 Hypertensive heart disease with heart failure (principal); I50.22 Chronic systolic (congestive) heart failure; I44.2 Atrioventricular block, complete; I48.0 Paroxysmal atrial fibrillation; I42.8 Other cardiomyopathies; I25.2 Old myocardial infarction; F32.9 Major depressive disorder, single episode, unspecified; F41.9 Anxiety disorder, unspecified; F11.11 Opioid abuse, in remission; Z87.891 Personal history of nicotine dependence; Z79.01 Long term (current) use of anticoagulants; Z79.82 Long term (current) use of aspirin; Z79.899 Other long term (current) drug therapy; Z88.0 Allergy status to penicillin; Z95.0 Presence of cardiac pacemaker
CPT/HCPCS: 33225; 33249; 36005; 36415; 71045; 75820; 80048; 85025; 85610; 85730; 93005; 93010; C1777; C1882; C1900; J1956; J2001; J2250; J2370; J2704; J3010; J3490; Q9967

== ENCOUNTER 2020-01-16 01:45 | Inpatient (IN) | payer OTHER ==
[2020-01-16 02:54] LABS: Band 12 % (5-11); Hemoglobin 11.6 g/dL (12.0-16.0); Lymphocytes 5 % (21-51); MDiff Complete? YES; Mean Corpuscular HGB CONC 32.7 g/dL (32.0-36.0); Mean Corpuscular Hemoglobin 31.1 pg (27.0-31.0); Mean Corpuscular Volume 95.3 fL (78.0-98.0); Mean Platelet Volume 11.4 fL (7.4-10.4); Monocytes 8 % (0-10); Neutrophil 75 % (42-75); Platelet Count 64 thou/uL (130-400); Platelet Morphology Comment Appears Decreased; RBC Distribution Width 12.7 % (11.5-14.5); Red Blood Cell (RBC) Count 3.74 mill/uL (4.20-5.40)
[2020-01-16 03:00] LABS: ALT (SGPT) 93 U/L (8-55); AST (SGOT) 57 U/L (5-34); Albumin 2.6 g/dL (3.5-5.0); Alkaline Phosphatase 180 U/L (40-110); Anion Gap 20 mmol/L (10-20); BUN (Urea Nitrogen) 33 mg/dL (7.0-18.7); Bilirubin, Total 0.8 mg/dL (0.2-1.2); CK (CPK) 27 U/L (29-168); Calc. Creatinine Clearance 0 mL/min (70-130); Calcium 7.6 mg/dL (7.8-10.44); Carbon Dioxide 16 mmol/L (22-29); Chloride 97 mmol/L (98-107); Estimated GFR-MDRD 25; Globulin 2.8 g/dL (2.4-3.5); Glucose 150 mg/dL (70-105); Potassium 4.1 mmol/L (3.5-5.1); Protein, Total 5.4 g/dL (6.0-8.3); Sodium 129 mmol/L (136-145)
[2020-01-16 03:16] LABS: CKMB 1.5 ng/mL (0-6.6)
[2020-01-16] MEDS ORDERED: Aspirin Chewable 81 MG TAB ONE ×2 (03:21)
[2020-01-16] MEDS ORDERED: Sodium Chloride 0.9% 1,000 ML IV SCH ×3 (04:45→13:37)
[2020-01-16 05:03] LABS: Bilirubin Negative (Negative); Blood, Urine Trace (Negative); Clarity Turbid (Clear); Glucose, Urine (Dipstick) Normal (Negative); Leukocyte Negative Leu/uL (Negative); Nitrite Negative (Negative); Protein, Urine (Dipstick) 50 mg/dL (Neg-Trace); Squamous Epithelial 0-3 HPF (0-3); Urobilinogen 3 mg/dL (Less than 2)
[2020-01-16 05:05] LABS: Amphetamine Not Detected (NotDetected); Barbiturates Screen Not Detected (NotDetected); Benzodiazepine Screen Not Detected (NotDetected); Cocaine Metabolite Screen Not Detected (NotDetected); Medtox Reader # READER 4; Methadone Not Detected (NotDetected); Methamphetamine Not Detected (NotDetected); Opiate Screen Not Detected (NotDetected); Oxycodone Screen Not Detected (NotDetected); Phencyclidine (PCP) Not Detected (NotDetected); THC/Cannabinoid Screen Not Detected (NotDetected); Tricyclic Screen Not Detected (NotDetected)
[2020-01-16 05:06] LABS: Medtox Control Line Valid? VALID (VALID)
[2020-01-16 05:23] LABS: Bacteria/HPF 2+ HPF (None Seen); WBC/HPF 21-50 HPF (0-3)
[2020-01-16 05:32] VITALS: BMI 20.2
[2020-01-16 05:52] LABS: Troponin I 0.116 ng/mL (< 0.028)
[2020-01-16] MEDS ORDERED: Sodium Chloride 0.9% 500 ML IVPB SCH (06:00)
[2020-01-16] MEDS: cefTRIAXone\\ROCEPHIN 1 GM in Sodium Chloride 0.9% 100 ML IVPB SCH (06:16)
--- NOTE | 2020-01-16 06:30 | HP ---
CHIEF COMPLAINT: Chest pain. HISTORY OF PRESENT ILLNESS: Ms. Valle is a 39-year-old female with past medical history of cardiomyopathy/myocarditis, congestive heart failure, bradyarrhythmia, cardiac pacemaker, substance abuse, presented to the emergency room for the second time today with chest pain. Earlier, she presented with headache and dizziness. The patient was discharged, came back with chest pain. Workup in the emergency room, the patient was hypotensive with a blood pressure of 63/36. After fluid bolus, her blood pressure went up to 85/50. As per the patient, she always run low blood pressure. She said that her systolic blood pressure always in the 80s. Workup in the emergency room, also the patient was found to have troponin of 0.15. Elevated creatinine of 2.1. She said that she has been having diarrhea over the last few days. Also, she was found to have a sodium of 129. The patient is being admitted to the hospital for further management. PAST MEDICAL HISTORY: 1. cardiomyopathy. 2. Congestive heart failure. 3. Hypotension. 4. Bradyarrhythmia. 5. Cardiac pacemaker. 6. Scoliosis. PAST SURGICAL HISTORY: 1. Cardiac pacemaker. 2. Surgical history of section. 3. Cardiac ablation x2. 4. Defibrillation. SOCIAL HISTORY: Denies alcohol use. Used to smoke methamphetamine in the past. She still smokes cigarettes. FAMILY HISTORY: Reviewed and noncontributory. ALLERGIES: SHE IS ALLERGIC TO PENICILLINS. HOME MEDICATIONS: Please see home medication reconciliation form for updated medications. REVIEW OF SYSTEMS: Review of 14 systems negative except what is mentioned in history of present illness. PHYSICAL EXAMINATION: GENERAL: The patient is awake, alert, in mild distress. VITAL SIGNS: Blood pressure is 85/55, pulse is 70, respiratory rate is 19, temperature is 97.9, and oxygen saturation is 100% on room air. HEAD AND NECK: Normocephalic and atraumatic. NECK: Supple. No JVD. CHEST: Fair bilateral air entry. HEART: Distant heart sounds. ABDOMEN: Soft, nontender. Bowel sounds present. NEUROLOGIC: Awake, alert, oriented x3. PSYCH: Unable to assess. EXTREMITIES: No clubbing or cyanosis. GENITOURINARY: No suprapubic tenderness. No flank tenderness. LABORATORY DATA: As mentioned above in history of present illness. ASSESSMENT: 1. Acute coronary syndrome? The patient having chest pain and elevated troponin. 2. cardiomyopathy. 3. Cardiac pacemaker/defibrillator. 4. Cigarette smoker. 5. Hypotension, as per the patient, this is chronic. 6. Acute kidney injury. UTI PLAN: 1. Admit to IMCU. 2. Aspirin. 3. Continue anticoagulation, the patient is on home Eliquis. 4. I will hold the Lasix and beta blockers for now. Blood pressure is low. - IV antibiotic 5. Consult Cardiology in a.m. for evaluation and further recommendations. 6. Monitor kidney function and urine output for acute kidney injury. 7. DVT prophylaxis as appropriate. 8. Expected length of stay, 2 midnights or more. Job ID: [id number] [facility]
[2020-01-16] MEDS ORDERED: Aspirin 325 mg Enteric Coated Tablet PO SCH (09:00)
[2020-01-16] MEDS ORDERED: Heparin 1,000 UNITS/ML VIAL ONE (09:41)
[2020-01-16 09:57] LABS: Lactic Acid 3.8 mmol/L (0.5-2.2)
[2020-01-16] MEDS ORDERED: Acetaminophen 325 MG TAB PO PRN (10:05)
[2020-01-16 10:07] LABS: Troponin I 0.158 ng/mL (< 0.028)
--- NOTE | 2020-01-16 10:26 | RAD ---
PORTABLE CHEST 1 VIEW: DATE: 01/16/2020. TIME: 2:52 AM. HISTORY: Chest pain. COMPARISON: 05/21/2019. FINDINGS: The heart size is enlarged. Left-sided pacing device remains in place. The lungs are expanded witho ut lobar consolidation, pneumothoraces, tee pulmonary edema, or pleural effusions. IMPRESSION: No acute process. POS: [facility]
[2020-01-16] MEDS ORDERED: Acetaminophen/Codeine 30-300mg Tablet PO PRN (11:01)
[2020-01-16] MEDS ORDERED: Sodium Chloride 0.9% 500 ML IV SCH (13:45)
[2020-01-16 15:05] LABS: INR-International Normal Ratio 1.4; Prothrombin Time 16.9 sec (12.0-14.7)
[2020-01-16 15:06] LABS: PTT 37.7 sec (22.9-36.1)
[2020-01-16 15:24] LABS: Anion Gap 12 mmol/L (10-20); BUN (Urea Nitrogen) 29 mg/dL (7.0-18.7); CRP (Inflammatory) 20.21 mg/dL (= or < 0.5); Calc. Creatinine Clearance 34 mL/min (70-130); Calcium 6.9 mg/dL (7.8-10.44); Carbon Dioxide 17 mmol/L (22-29); Chloride 101 mmol/L (98-107); Estimated GFR-MDRD 35; Glucose 121 mg/dL (70-105); Magnesium 2.3 mg/dL (1.6-2.6); Potassium 4.3 mmol/L (3.5-5.1); Sodium 126 mmol/L (136-145)
[2020-01-16] MEDS ORDERED: Norepinephrine 8 MG/0.9% NS 250 ML IVPB PRN (15:24)
[2020-01-16] MEDS ORDERED: Meropenem 1 GM in Sodium Chloride 0.9% 100 ML IVPB SCH (15:30)
[2020-01-16] MEDS ORDERED: Vancomycin 1 GM in Premix Bag 1 BAG IVPB SCH (15:30)
[2020-01-16 15:31] LABS: Band 55 % (5-11); Burr Cells SLIGHT = 2-5 cells (100X) (0-1/hpf); Eosinophils 1 % (0-10); Hemoglobin 9.9 g/dL (12.0-16.0); Hypochromia SLIGHT = 6-15 cells (100X) (0-5/hpf); Large Platelets SLIGHT; Lymphocytes 6 % (21-51); MDiff Complete? YES; Mean Corpuscular HGB CONC 31.5 g/dL (32.0-36.0); Mean Corpuscular Hemoglobin 30.3 pg (27.0-31.0); Mean Corpuscular Volume 96.1 fL (78.0-98.0); Mean Platelet Volume 10.9 fL (7.4-10.4); Monocytes 7 % (0-10); Neutrophil 31 % (42-75); Platelet Count 43 thou/uL (130-400); Platelet Morphology Comment Appears Decreased; Polychromasia SLIGHT = 2-3 cells (100X) (0-2/hpf); RBC Distribution Width 12.7 % (11.5-14.5); Red Blood Cell (RBC) Count 3.26 mill/uL (4.20-5.40); Schistocytes SLIGHT = 2-5 cells (100X) (0-1/hpf); Target Cells SLIGHT = 2-5 cells (100X) (0-1/hpf); White Blood Cell (WBC) Count 6.6 thou/uL (4.8-10.8)
--- NOTE | 2020-01-16 15:34 | PDOC.EVN ---
Event Note - Event Note Event Note: Pt will be transferred to CCU due to persistent hypotension. Will start Pressors. Case d/w Dr Herbert. Labs pending
--- NOTE | 2020-01-16 15:53 | RAD ---
SINGLE VIEW OF THE CHEST: COMPARISON: 01/16/2020. HISTORY: Central line placement. FINDINGS: A single view of the chest shows a normal-sized cardiomediastinal silhouette. The pacemaker is uncha nged in position. A right subclavian central venous catheter is seen with its tip in the superior ve na cava. No pneumothorax is appreciated. IMPRESSION: Status post central line placement without evidence of complication. POS: [facility]
--- NOTE | 2020-01-16 16:23 | OP ---
DATE OF PROCEDURE: 01/16/2020 PREOPERATIVE DIAGNOSES: 1. Chronic cardiomyopathy. 2. Hypertension. POSTOPERATIVE DIAGNOSES: 1. Chronic cardiomyopathy. 2. Hypotension. PROCEDURE PERFORMED: Placement of right subclavian triple-lumen central venous catheter. INDICATION FOR PROCEDURE: A 39-year-old woman with chronic cardiomyopathy, was admitted into the intermediate care unit. The patient is hypertensive, requiring resuscitation. I was asked to place a central venous access to facilitate in therapeutics. DESCRIPTION OF PROCEDURE: Informed consent was obtained from the patient and was placed in supine position. Right chest wall sterilely prepped and draped in usual fashion. The skin below the right clavicle anesthetized with 1% lidocaine. The right subclavian vein was cannulated with an 18-gauge introducer needle returning dark venous blood. Guidewire was passed through the needle and advanced into the right subclavian vein without resistance. The needle was withdrawn over the guidewire. A stab incision was made adjacent to the guidewire using #11 scalpel. Dilator was passed over the guidewire dilating the subcutaneous tissues. Dilator was removed, and a triple-lumen central venous catheter was advanced over the guidewire and placed in the right subclavian vein without resistance stopping at the 15-cm raudel. Guidewire was removed. Dark venous blood was aspirated from all 3 ports, which were individually flushed with saline. Catheter was secured to right chest wall using 3-0 silk suture at two points. Sterile dressings were applied. The patient tolerated the procedure without any apparent complication. She remained hemodynamically stable following completion of procedure. Chest x-ray confirmed proper placement and no pneumothorax present. Job ID: [id number] [facility]
[2020-01-16] MEDS ORDERED: Morphine 4 MG/ML VIAL ONE (16:46)
[2020-01-16] MEDS: methylPREDNISolone Sod Succ 40 MG VIAL IVP SCH ×2 (17:53→23:25)
[2020-01-16] MEDS: MEROPENEM 1 GM/50 ML 1 GM in Premix Bag 1 BAG IVPB SCH (18:01)
[2020-01-16] MEDS ORDERED: Vancomycin HCl 750 MG in Sodium Chloride 0.9% 250 ML 250 ML IVPB SCH (19:00)
[2020-01-16] MEDS: Sodium Chloride 0.9% 1,000 ML IV SCH (19:41)
[2020-01-16] MEDS: Famotidine 20 MG TAB PO SCH (20:25)
[2020-01-16] MEDS: Aspirin Chewable 81 MG TAB PO SCH (20:25)
[2020-01-16] MEDS ORDERED: Famotidine 20 MG TAB PO SCH (21:00)
--- NOTE | 2020-01-16 21:57 | CON ---
DATE OF CONSULTATION: 01/16/2020 REASON FOR CONSULTATION: Sepsis. HISTORY OF PRESENT ILLNESS: A 39-year-old with history of myocarditis with an AICD placed in 2002 and two cardiac ablations, who developed general malaise, myalgias, and anterior chest pain, pleuritic costochondral type, as well as neck pain starting on Tuesday. She had low-grade temperature elevation, but then on Tuesday, she decided to come to the emergency room. The first time around, she presented to the ER on the because of a headache and they focused more on that. Her temperature is 99.1, O2 saturation 99, BP 93/44, and pulse 60. The exam was not particularly remarkable. CT brain did not show anything, so she was sent home. Evidently, she had to come back next day and at this time, she was admitted. At this time, the pain had extended from the head towards the chest and other areas. She was also having pain in the thighs. She noted a nodular region in one of the thighs, which is quite tender in the medial aspect of the left side. She did not have any diarrhea. No genitourinary symptoms. No focal neurological symptoms and on arrival, her temperature was 98 and O2 saturations were 100. She had tenderness on palpation of the sternum and the white cell count 7.0, hemoglobin 11.6, and her platelets were 64,000 with 12% bands. Urinalysis with 21 to 50 wbc's and imaging included a brain CT the day before, which was normal and a chest x-ray with normal size cardiomediastinal silhouette; pacemaker, which is actually an AICD lead; and subclavian central venous catheter placed at this admission. No infiltrates. Currently, Ms. Valle is in the ICU. She is awake and she is in distress because of this pain in the chest area when she takes deep breaths and coughs right in the midline along the sternal border. She denies any abdominal pain. No genitourinary symptoms. No diarrhea. No other joint symptoms. She has the sensation of pain in the nodular lesion in the medial aspect of the left thigh. PAST MEDICAL HISTORY: cardiomyopathy, hypotension, AICD, , and cardiac ablation x2. SOCIAL HISTORY: Current smoker. [place]. ALLERGIES: PENICILLIN WITH ANAPHYLAXIS REPORTEDLY. FAMILY HISTORY: Noncontributory. CURRENT MEDICATIONS: 1. P.R.N. medications. 2. DuoNeb. 3. Ceftriaxone. 4. Meropenem. 5. Medrol. 6. Vancomycin. PHYSICAL EXAMINATION: VITAL SIGNS: T-max 99.3, blood pressure 75/39 and now it is 88/50, O2 saturation 89 to 98, and heart rate 67. SKIN: Warm. There are no lesions noted. She has a central line. There is no lymphadenopathy. HEENT: Ocular movements conjugate. Sclerae white. Conjunctivae normal. Oral cavity normal. NECK: Supple. There is tenderness on palpation of the posterior neck area, which has quite significant tenderness. She has tenderness on palpation of the anterior chest area mediastinal region. There is no jugular vein distention. LUNGS: With symmetric clear breath sounds. HEART: S1 and S2. No obvious murmurs, although there might be a systolic on the right parasternal border second and third intercostal space. ABDOMEN: Soft, not distended or tender. No ascites. No bladder distention. EXTREMITIES: No joint inflammatory activity. Pulses are 1+ in dorsalis pedis. No edema. NEUROLOGIC: Moves extremities on command. She is awake, oriented, and follows commands. There is an area of nodularity in the medial thigh, left side. This measures about 1.5 cm. There is no discoloration associated with this. LABORATORY DATA: The latest labs showed a white cell count 6.6, hemoglobin 9.9, and platelets 43,000 with 55% bands. INR 1.4. Sodium 126, creatinine is down to 1.65, it is improved. CRP is up to 20. Cortisol 17. Two sets of blood cultures are pending. She has been started on vancomycin and meropenem. Echocardiogram has been taken. Her last echo is from last year and it showed EF of 30% to 35%, dilated left atrium, pacer leads, and small pericardial effusion. ASSESSMENT: 1. myocarditis with low ejection fraction. 2. Automatic implantable cardioverter-defibrillator. 3. New onset of fever, chest pain, myalgias, nodular lesion in the left mid thigh, hypotension, and sepsis syndrome. DISCUSSION: Differential diagnosis includes colonization of the AICD lead with bacteremia, fungemia is a possibility. Vasculitis would be another possibility, but that is less likely. The third possibility would be a urinary tract infection with invasive features. Management will include broad spectrum coverage. Monitor blood cultures. Followup echocardiogram. Pericarditis appears to be less likely. Job ID: [id number]
--- NOTE | 2020-01-16 22:37 | CON ---
DATE OF CONSULTATION: 01/16/2020 CONSULTING PHYSICIAN: Sheldon Peralta MD REASON FOR CONSULTATION: The patient has been moved to the ICU because of hypotension. HISTORY OF PRESENT ILLNESS: This patient is a 39-year-old, whose chief complaint is constant chest pain to the touch that has been present for about 24 hours. This radiates to her neck. She has a history of a cardiomyopathy. She has a defibrillator in place. She has been noted to be hypotensive. She was transferred to the CCU for the purpose of administering Levophed. She has been seen by Cardiology. She endorses nausea and diarrhea. Dr. Lynn asked that she be ruled out for COVID-19 infection. PAST MEDICAL HISTORY: 1. Cardiomyopathy. 2. Congestive heart failure. 3. Chronic hypotension. 4. Bradyarrhythmia. 5. Pacemaker placement. PAST SURGICAL HISTORY: 1. Pacemaker placement. 2. . 3. Cardiac ablation and defibrillator placement. SOCIAL HISTORY: Former methamphetamine user. Still smokes cigarettes. Does not consume alcohol. ALLERGIES: PENICILLINS. MEDICATIONS: 1. Sacubitril/valsartan (Entresto). 2. Lasix. 3. Coreg. 4. Aspirin. 5. Eliquis. CURRENT INPATIENT MEDICATIONS: 1. DuoNeb. 2. Aspirin. 3. Ceftriaxone. 4. Famotidine. 5. Meropenem. 6. Vancomycin. REVIEW OF SYSTEMS: Remarkable for chest pain. PHYSICAL EXAMINATION: VITAL SIGNS: Temperature 99.0, pulse 67, blood pressure 95/39, and O2 saturation 89%. GENERAL: The patient is awake. She is complaining of the chest pain. HEENT: Unremarkable. NECK: No adenopathy or JVD. LUNGS: Coarse rales. CARDIAC: S1 and S2. Regular. ABDOMEN: Soft and nontender. EXTREMITIES: No edema. LABORATORY DATA: Sodium 126, potassium 4.3, chloride 101, CO2 of 17, BUN 29, creatinine 1.6, and glucose 121. Cortisol level 17.2. White blood cell count 6.6, hematocrit 31.3, and platelet count 43. BNP is 291. Osmolality 270. Her chest x-ray showed no acute infiltrates. C-reactive protein was above 20. ASSESSMENT: 1. Hypotension. 2. Heart failure - chronic. 3. Elevated C-reactive protein in the phase of diarrhea. PLAN: 1. The patient was given 2 L of IV fluid. She is now on Levophed. She will continue gentle hydration at the direction of the hospitalist. She does appear slightly dry on exam. 2. For the pain, I would go ahead and treat this with steroids and Tylenol and see if she improves. 3. Antibiotics until cultures come back. Job ID: [id number]
[2020-01-16 22:59] LABS: Protein, Urine Random Quant 24 mg/dL (1-14); Sodium, Urine Less than 20 mmol/L (Not Available); Urea Nitrogen, Random Urine 212 mg/dl
[2020-01-16] MEDS: Morphine 4 MG/ML VIAL SLOW IVP PRN (23:33)
[2020-01-17 05:13] LABS: Hemoglobin 11.9 g/dL (12.0-16.0); Mean Corpuscular HGB CONC 31.2 g/dL (32.0-36.0); Mean Corpuscular Volume 96.2 fL (78.0-98.0); Mean Platelet Volume 11.8 fL (7.4-10.4); Platelet Count 64 thou/uL (130-400); RBC Distribution Width 12.8 % (11.5-14.5); Red Blood Cell (RBC) Count 3.95 mill/uL (4.20-5.40); White Blood Cell (WBC) Count 13.1 thou/uL (4.8-10.8)
[2020-01-17 05:30] LABS: Lactic Acid 2.1 mmol/L (0.5-2.2)
[2020-01-17 05:38] LABS: ALT (SGPT) 70 U/L (8-55); AST (SGOT) 23 U/L (5-34); Albumin 2.7 g/dL (3.5-5.0); Alkaline Phosphatase 190 U/L (40-110); Anion Gap 12 mmol/L (10-20); BUN (Urea Nitrogen) 34 mg/dL (7.0-18.7); Bilirubin, Total 0.6 mg/dL (0.2-1.2); Calc. Creatinine Clearance 38 mL/min (70-130); Calcium 8.1 mg/dL (7.8-10.44); Carbon Dioxide 20 mmol/L (22-29); Chloride 107 mmol/L (98-107); Estimated GFR-MDRD 41; Glucose 195 mg/dL (70-105); Magnesium 2.9 mg/dL (1.6-2.6); Potassium 4.9 mmol/L (3.5-5.1); Protein, Total 5.7 g/dL (6.0-8.3); Sodium 134 mmol/L (136-145)
[2020-01-17] MEDS: MEROPENEM 1 GM/50 ML 1 GM in Premix Bag 1 BAG IVPB SCH ×2 (05:42→17:41)
[2020-01-17] MEDS: methylPREDNISolone Sod Succ 40 MG VIAL IVP SCH ×3 (05:43→17:41)
[2020-01-17] MEDS: cefTRIAXone\\ROCEPHIN 1 GM in Sodium Chloride 0.9% 100 ML IVPB SCH (05:43)
[2020-01-17 05:52] LABS: Band 20 % (5-11); Dohle Bodies SLIGHT; Lymphocytes 4 % (21-51); MDiff Complete? YES; Monocytes 1 % (0-10); Neutrophil 75 % (42-75); Platelet Morphology Comment Appears Decreased; Toxic Granulation SLIGHT
--- NOTE | 2020-01-17 06:09 | CON ---
DATE OF CONSULTATION: 01/16/2020 SERVICE: Nephrology. REASON FOR CONSULTATION: NBA and hyponatremia. REQUESTING PHYSICIAN: Dr. Sheldon Peralta. CHIEF COMPLAINT: Chest pain. HISTORY OF PRESENT ILLNESS: A 39-year-old female with known history of cardiomyopathy/myocarditis, status post pacemaker placement, congestive heart failure, substance abuse, and other, who was admitted due to acute onset of anterior pleuritic chest pain as well as body aches and diarrhea since about 1 to 2 days, associated with headache and some dizziness. The patient on presentation to the ER was noted to be hypotensive with systolic blood pressure in 60s, and the patient was treated with fluid resuscitation. The patient reported chronic low blood pressure with usual blood pressures running in 70s to 80s systolic. She was also found to have hyponatremia with sodium of 126 and elevated creatinine of 2.1 on presentation. Due to persistent hypotension even after fluid resuscitation, the patient was admitted to IMCU and subsequently transferred to ICU. The patient denied confusion or change in mental status. She admitted to diarrhea illness yesterday and had about 2 to 3 loose bowel motions, which have subsided. She denied fever, cough , or shortness of breath, but admitted to difficulty breathing, which is mostly due to pain on respiratory effort. She denied leg swelling, hematochezia, nausea, or vomiting. She also denied hematuria or dysuria. She also denied COVID contact. Of note, post IV fluid resuscitation, plasma sodium dropped from 129 on presentation to 126 necessitating Nephrology consult. PAST MEDICAL HISTORY: 1. Chronic low blood pressure. 2. Bradyarrhythmia. 3. Scoliosis. 4. cardiomyopathy. 5. Chronic congestive heart failure. 6. Substance abuse. PAST SURGICAL HISTORY: 1. Defibrillator/pacemaker placement. 2. section. 3. Cardiac ablation x2. FAMILY HISTORY: Reviewed, but noncontributory. SOCIAL HISTORY: The patient admitted to smoking cigarettes. She also admitted to using methamphetamine in the past. Denied alcohol use. ALLERGIES: PENICILLIN. HOME MEDICATIONS: 1. Eliquis 5 mg p.o. b.i.d. 2. Aspirin 81 mg p.o. daily. 3. Carvedilol 3.125 p.o. b.i.d. 4. Furosemide 40 mg p.o. daily. 5. Entresto 24.5/25.5 one tablet p.o. b.i.d. REVIEW OF SYSTEMS: A 12-point review of system performed was negative other than pertinent positives and negatives included in the history of present illness. PHYSICAL EXAMINATION: VITAL SIGNS: Most current vitals showed temperature 98.6, pulse 64, respiratory rate 17, SpO2 of 96% on room air, and blood pressure is 74/40. GENERAL: Petite, young female, in mild painful distress. Afebrile. Anicteric. Acyanotic. HEENT: Normocephalic, atraumatic. Oral mucosa is moist. NECK: Supple with no JVD. CARDIOVASCULAR: Regular rhythm and rate with normal heart sounds 1 and 2. RESPIRATORY: Fair air entry bilateral with some transmitted breath sounds. There are no obvious rhonchi or use of accessory muscles. Anterior chest wall tenderness noted. GI: Abdomen is full, mildly thin, with diffuse tenderness. Bowel sound is hypoactive. EXTREMITIES: Grossly normal looking, atraumatic with no obvious edema or erythema. [employer]: Conscious and alert, oriented x3 with appropriate mental status. Cranial nerves 2 through 12 are grossly intact. LABORATORY DATA: Most current CBC showed WBC count of 6.6, hemoglobin of 9.9, MCV of 96.1, and platelets of 43. Of note, on presentation earlier on, WBC was 7.0, hemoglobin 11.6, and platelets 64. BMP at 1438 hours, showed sodium 126, potassium 4.3, chloride 101, CO2 of 17, BUN 29, creatinine 1.65, glucose 121, calcium 6.9. Of note, on presentation earlier today, CMP showed sodium 129, potassium 4.1, chloride 97, CO2 of 16, BUN 31, creatinine 2.18, glucose 150, calcium 7.6, total bilirubin 0.8, AST 57, ALT 93, alkaline phosphatase 180, total protein 5.4, albumin 2.6, and globulin 2.8. Initial cardiac markers showed CK 27, CK-MB 1.5, troponin 0.15, and BNP 291.4. Initial lactic acid was 3.9. Random cortisol level was 17.2. C-reactive protein is 20.21. Serum osmolality is 270. Urinalysis on presentation showed yellow turbid urine with pH of 5.0 and specific gravity of 1.018. Urine protein 50 mg/dL, normal glucose, negative ketone, trace blood, negative nitrite and bilirubin as well as leukocyte esterase. Microscopy showed 4 to 6 rbc and 21 to 50 wbc with 2+ bacteria. Urine drug screen was unremarkable. Chest x-ray on presentation showed an enlarged heart with left-sided pacing device. Lungs expanded without lobar consolidation, pneumothorax, tee pulmonary edema , or pleural effusion. ASSESSMENT: 1. Acute kidney injury: Most likely due to shock. The patient had baseline creatinine ranging from 0.7 to 0.9, but currently it is 2.18 on presentation, trending down to 1.65 with fluid therapy. Metabolic acidosis with lactic acidosis; due to shock. 2. Shock: Etiology is unclear. Most likely septic shock. Acute infective process superimposed on cardiomyopathy seems plausible. Elevated lactic acid and evidence of end-organ damage as noted with acute kidney injury and transaminitis are consistent. 3. Hyponatremia: The patient had normal plasma sodium of 138 in April 2019. On presentation, sodium was 129, but currently 126 following crystalloid therapy. This seems to be related to appropriate ADH secretion due to effective volume contraction as well as possible inappropriate ADH related to congestive heart failure/ cardiomyopathy. The patient reported acute diarrhea illness. 4. Presumed urinary tract infection. Urinalysis also is suggestive of urinary tract infection. PLAN: 1. Resuscitation as per Critical Care. We will, however, recommend backing off crystalloids due to worsening hyponatremia as well as history of congestive heart failure. Pressors will suffice. 2. We will get urine electrolytes as well as urine and plasma osmolality. 3. Empirical antibiotic therapy as per primary attending 4. We will monitor intake and output and follow electrolytes. We will also monitor renal function. Renal function is anticipated to improve with optimization of hemodynamics. Many thanks for involving us in the care of this patient. We will follow along with you. Job ID: [id number] [facility]ITAL[facility]
--- NOTE | 2020-01-17 06:33 | CON ---
DATE OF CONSULTATION: ADDENDUM: INDICATION FOR CONSULTATION: A 39-year-old female who is well known to me as we have followed her for many years, who has presented with chest pain. HISTORY OF PRESENT ILLNESS: This very unfortunate 39-year-old female who has a long history of cardiac problems and has had a history of SVT with ablation and eventually underwent AVJ ablation and pacemaker insertion. She also has been found to have problems with cardiomyopathy in the past, has been up and down. She has had ejection fraction as low as 10% to 15%, and this often was associated with using illicit drugs. Apparently, she has been doing relatively well and not taking drugs recently and actually her ejection fraction had improved at one time up to about 50% and then had decreased again. The last time I saw her, it was down to 30% to 35%. At that time she had not been taking her medications. At this time, she presents to the hospital after complaining of chest pain, which she said she got in the shower, put some hot water on it and felt better, but she complains of pain all over including her legs, her feet, her hands, her arms. She has pain everywhere and is requesting medications for pain. Unfortunately she has a long history of illicit drug use and may be drug-seeking. If there is no indication or etiology that we can determine that this is a life-threatening problem for the pain, then there is no indication that I can determine as to why she would be having such significant pain. At this time, her EKG is unremarkable. She does have AV pacing, but does not have any other significant abnormalities. Her cardiac enzymes were slightly elevated, but would still be indeterminate and there is no indication that she is suffering a myocardial infarction. At this time, we will recheck her echocardiogram. We will continue to monitor her. She may need something for anxiety. She says she has been depressed because her lost his job and she has also been trying to get one of her children back. They were taken away by [employer]PS. As long as she hopefully remains stable, then she will eventually get her children back if she can control her drug habit. PAST MEDICAL HISTORY: Significant for the SVT with the ablation, cardiomyopathy, pacemaker insertion, anxiety, depression, illicit drug use. She has had C-sections. She has had bilateral tubal ligation. SOCIAL HISTORY: She is a 2, para 2 female. Her children are with the [employer]PS. She has one daughter and one son. The son is now residing with the grandmother and this lady is still . She smokes occasionally and at this time the drug screen was negative. It does not appear that she has been using any drugs recently. MEDICATIONS: Should have included 1. Eliquis 5 mg p.o daily. 2. Aspirin 81 mg a day. 3. Coreg 3.125 mg twice a day. 4. Furosemide 40 mg once a day. 5. Entresto 24.5/25 one twice a day. ALLERGIES: SHE SAYS SHE IS ALLERGIC TO PENICILLINS. REVIEW OF SYSTEMS: Please refer to the notes dictated by the nurse practitioner. They are relatively unremarkable except for the chronic pain she has and now she has pain everywhere, but I do not see any significant etiology of the pain and she had no other significant GI or complaints. PHYSICAL EXAMINATION: GENERAL: Reveals a well-developed, well-nourished, somewhat small statured female. VITAL SIGNS: Blood pressure is 86/40, heart rates in the 80s and shows a paced rhythm. Respiratory rate is 22. Actually, temperature is 99.3. O2 sats are 96% to 100%. HEENT: Unremarkable. CHEST: Clear to auscultation. There are no rales, rhonchi, or wheezing. CARDIOVASCULAR: Reveals a regular rhythm. She is pacing. She has an implantation on the left infraclavicular area of the pacemaker device. This is all well healed. ABDOMEN: Flat, soft, nontender. Positive bowel sounds are present. EXTREMITIES: Show no clubbing, cyanosis, or edema. Pulses are present. NEUROLOGIC: She appears to be intact, was somewhat anxious and nervous. Patient complaining of pain. She is tearful during the examination, requesting something for her pain. LABORATORY DATA: Shows a WBC of 7, hemoglobin 11.6, platelet count was 64,000, which is on the low side. Chemistries show a troponin I of 0.15, decreased down to 0.11 and then increased again up to 0.158. This is all indeterminate. Her BNP was 291, which is not significantly elevated. Urinalysis did show 2+ bacteria with 20 to 50 WBCs. IMPRESSION: A 39-year-old female with chest pain, back pain, leg pain, abdominal pain, and pain all over. This does not appear to be cardiac in nature. This could indicate some drug-seeking behavior or she may have some other etiology of the pain, but given the diffuse pain that she has including the arms and legs and everywhere without any significant contributing etiology that I can determine, she may need to have some antianxiety medications, but will be very hesitant to resume some of her narcotic type medications. Otherwise, from a cardiac standpoint, she appears to be stable at this time. We will repeat the echocardiogram for evaluation of left ventricular systolic function. I do not think a stress test is indicated at this time. We are more than happy to continue to follow the patient with you. Job ID: [id number]
[2020-01-17] MEDS: Morphine 4 MG/ML VIAL SLOW IVP PRN ×2 (08:13→16:04)
[2020-01-17] MEDS: Famotidine 20 MG TAB PO SCH (09:20)
[2020-01-17 10:59] LABS: SARS-CoV-2 MS2 Positive; SARS-CoV-2 N Gene Negative; SARS-CoV-2 S Gene Negative; SARS-CoV-2 orf1ab Negative
--- NOTE | 2020-01-17 14:13 | ULT ---
EXAM: BILATERAL LOWER EXTREMITY VENOUS DUPLEX UTLRASOUND INCLUDING COLOR AND SPECTRAL DOPPLER IMAGIN01/17/20 HISTORY: Left thigh pain. FINDINGS: Exam performed from groin to ankle including visualized greater saphenous, common femoral, superficia l femoral, profunda femoral, popliteal, and trifurcation, and posterior tibial vein regions. There is phasic flow with normal compressibility and normal augmentation. The area of concern involving the m edial left thigh with some associated redness demonstrates no evidence for fluid collection or mass. IMPRESSION: No evidence for deep venous thrombosis. POS: RRE
--- NOTE | 2020-01-17 14:20 | ULT ---
EXAM: BILATERAL RENAL ULTRASOUND COMPLETE: 01/17/20 HISTORY: Acute kidney injury. FINDINGS: The left kidney measures 8.7 x 4.0 x 5 cm. The left kidney measures 9.6 x 5.4 x 6.7 cm. No evidence of renal hydronephrosis. Urinary bladder appears unremarkable. IMPRESSION: No renal hydronephrosis or other acute process. POS: RRE
--- NOTE | 2020-01-17 14:36 | PDOC.PALCO ---
Palliative Care Consult - Consult Details Requesting Physician: Dr Peralta Reason for Consult: goals of care - Pertinent HPI 39 year old female who has heart failure associated with cardiomyopathy. Prior substance abuse history, went to rehab and has been clean for aprox one year. She reports an onset of dizziness and headache to the emergency room with no alleviating factors, she was sent home and returned with chest pain. Further evaluation identified hypotension (States that is "normal" for her) and elevated sodium and creatine. Admitted for further evaluation and management. Heart echo performed revealed a decrease in EF at 15-20%. - Pertinent PMH cardiomyopathy, tobacco dependence, heart failure, history of drug abuse - Social History Smoking Status: Current every day smoker Smoking: cigarettes Alcohol Use: none Drug Use History: none, other (in recovery for aprox one year) Living Situation: - Medications MAR Reviewed: Yes - Allergies Allergies/Adverse Reactions: Allergies Allergy/AdvReac Type Severity Reaction Status Date / Time Penicillins Allergy Rash Verified 05/18/19 15:12 - ROS Constitutional: weakness Eyes: other (denies visual changes) ENT: other (denies congestion, throat irritation) Respiratory: other (denies cough) Cardiology: other (Denies chest pain) Genitourinary: other (denies dysuria, frequency) Musculoskeletal: leg pain Skin: other (denies puritis or rash) - Objective Vital Signs: Vital Signs - Most Recent Temp Pulse Resp BP Pulse Ox 98.4 F 89/63 L 94 L 01/17/20 12:00 01/17/20 05:00 01/17/20 08:00 Palliative Performance Scale: 70 - Physical Exam Constitutional: NAD HEENT: moist MMs Respiratory: clear to auscultation bilateral, no wheezing Deviation from normal: faint heart sounds Gastrointestinal: continent, non-tender, positive bowel sounds Genitourinary: continent Musculoskeletal: no cyanosis, no clubbing Neurology: moves all 4 limbs, no focal deficits Skin: cap refill <2 seconds, no lesions Psychiatric: A&O x 3 - Problem List (1) Palliative care encounter Code(s): Z51.5 - ENCOUNTER FOR PALLIATIVE CARE Current Visit: Yes Status: Acute (2) Acute on chronic systolic CHF (congestive heart failure) Code(s): I50.23 - ACUTE ON CHRONIC SYSTOLIC (CONGESTIVE) HEART FAILURE Current Visit: No Status: Acute (3) Drug abuse Code(s): F19.10 - OTHER PSYCHOACTIVE SUBSTANCE ABUSE, UNCOMPLICATED Current Visit: No Status: Chronic (4) cardiomyopathy Code(s): O90.3 - PERIPARTUM CARDIOMYOPATHY Current Visit: No Status: Chronic - Plan/Recommendations Plan: Introduced Palliative Care. Short life review, one daughter Keaton who is 15 and lives with her biological father. Her son Bunny is 7 and lives with she and her . Earnestine lives in [facility] by her mother in a private home with her and son. She enjoys living on the property and looking out the window, relaxing. Enjoys reading. *Initial goal is to find women to connect with in recovery, will reach out to local recovery group to identify resources for Earnestine. *Return to home setting with her and son *Will revisit MPOA and address advance directives/directive to physician 01/17 *Requested assistance with resources for applying for disability, CM consult placed to identify if they are able to guide Mrs Valle. [60] minutes spent on this encounter with >50% of the time in counseling and coordination of care. Thank you for this very appropriate consult.
--- NOTE | 2020-01-17 14:41 | PRG ---
DATE OF SERVICE: 01/17/2020 SERVICE: Nephrology. SUBJECTIVE: A 39-year-old female with known history of cardiomyopathy, admitted with acute onset of generalized body ache, chest pain, and diarrhea. These are associated with hypotension. Nephrology is following patient for acute kidney injury and hyponatremia. The patient reports feeling a lot better today. Body aches have subsided. Blood pressure has improved with pressure support. OBJECTIVE: VITAL SIGNS: Temperature 97.8, pulse 60, respiratory rate 19, SpO2 95% on room air. Blood pressure is 109/73. I and O in the last 24 hours showed total intake of 4314 with total output of 2100. GENERAL: Comfortable young female, in no obvious distress. Afebrile. Anicteric. Acyanotic. HEENT: Normocephalic, atraumatic. Oral mucosa is moist. CARDIOVASCULAR: Regular rhythm and rate. Normal heart sounds one and two. RESPIRATORY: Fair air entry bilaterally. Few transmitted breath sounds. No obvious rhonchi or use of accessory muscles appreciated. No pleuritic chest pain or chest tenderness appreciated. GI: Full, soft, nondistended with normal bowel sounds. EXTREMITIES: Grossly normal looking atraumatic with no obvious edema or erythema. Extremities rather looks dry. 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 Cranial nerves 2 through 12 are grossly intact. DIAGNOSTIC DATA: CBC showed WBC count of 13.1, hemoglobin of 11.9, MCV of 96.2, platelet of 64. CMP showed sodium 134, potassium 4.9, chloride 107, CO2 of 20, BUN 34, creatinine 1.44, glucose 195, calcium 8.1, total bilirubin 0.6, AST 23, ALT 17, alkaline phosphatase 190, total protein 5.7, albumin 2.7. Urine osmolality is 169 in the presence of sodium osmolality of 277. Urine electrolytes showed urine creatinine 36.3. Urine sodium less than 20, and urine urea nitrogen 212. ASSESSMENT: 1. Acute kidney injury: It is related to septic shock. Improving with improved hemodynamics. 2. Hyponatremia: Due to appropriate ADH secretion related to decreased effective intravascular compartment related to septic shock. Sodium level is up with improved hemodynamics. 3. Septic shock: Treatment as per claim processor. The patient is on pressor. 4. Presumed urinary tract infection on therapy. 5. Transaminitis: Due to shock state. 6. cardiomyopathy associated with bradyarrhythmia status post pacemaker placement. PLAN: 1. Continue optimization of hemodynamics. 2. We will start oral sodium bicarbonate therapy. 3. We will monitor electrolytes closely. 4. We will also monitor renal function test. 5. Antibiotics as per Infectious Disease. 6. Agree with evaluation of the kidneys with ultrasounds. 7. Further treatment to follow depending on hospital course. Job ID: [id number]
[2020-01-17] MEDS: Sodium Bicarbonate Tab 325 MG TAB PO SCH ×2 (15:03→21:40)
[2020-01-17] MEDS: Sodium Chloride 0.9% 1,000 ML IV SCH (15:06)
--- NOTE | 2020-01-17 17:49 | PDOC.HOSPP ---
- Subjective Encounter Date: 01/17/20 - Objective Vital Signs & Weight: Vital Signs (12 hours) Temp Pulse Resp BP Pulse Ox 01/17/20 15:50 98.5 F 60 18 115/69 98 01/17/20 12:00 98.4 F 01/17/20 08:00 97.8 F 94 L Weight Weight 99 lb 13.91 oz Most Recent Monitor Data Heart Rate from ECG 60 NIBP 111/70 NIBP BP-Mean 83 Respiration from ECG 21 SpO2 100 I&O: 01/16/20 01/17/20 01/18/20 06:59 06:59 06:59 Intake Total 4314 1546.4 Output Total 2100 500 Balance 2214 1046.4 Result Diagrams: 01/17/20 04:40 01/17/20 04:40 Hospitalist ROS - Medication Medications: Active Medications Generic Name Dose Route Start Last Admin Trade Name Freq PRN Reason Stop Dose Admin Acetaminophen 650 mg 01/16/20 10:05 01/16/20 12:32 Tylenol PO 650 mg Q4H PRN Administration Headache/Fever or Mild Pain Aspirin 81 mg 01/16/20 21:00 01/16/20 20:25 Aspirin Chewable PO 81 mg HS ROSETTA Administration Norepinephrine Bitartrate 250 mls @ 0 mls/hr 01/16/20 15:24 01/16/20 16:48 Levophed IVPB 250 mls PRN PRN Administration To maintain MAP > 65 Protocol Titrate Meropenem 1 gm/ Device 50 mls @ 100 mls/hr 01/16/20 18:00 01/17/20 17:41 IVPB 50 mls Q12H ROSETTA Administration Sodium Chloride 1,000 mls @ 50 mls/hr 01/16/20 18:22 01/17/20 15:06 Normal Saline 0.9% IV 1,000 mls .Q20H ROSETTA Administration Methylprednisolone Sodium Succinate 40 mg 01/16/20 18:00 01/17/20 17:41 Solu-Medrol IVP 40 mg Q6HR ROSETTA Administration Morphine Sulfate 4 mg 01/16/20 16:45 01/17/20 16:04 Morphine SLOW IVP 4 mg Q4H PRN Administration Pain Sodium Bicarbonate 650 mg 01/17/20 15:00 01/17/20 15:03 Bicarbonate, Sodium PO 650 mg TID ROSETTA Administration Sodium Chloride 10 ml 01/16/20 21:00 01/17/20 12:30 Flush - Normal Saline IVF 10 ml Q12HR ROSETTA Administration Hosp A/P (1) Chest pain Code(s): R07.9 - CHEST PAIN, UNSPECIFIED Status: Acute (2) UTI (urinary tract infection) Status: Acute (3) NBA (acute kidney injury) Code(s): N17.9 - ACUTE KIDNEY FAILURE, UNSPECIFIED Status: Acute (4) cardiomyopathy Code(s): O90.3 - PERIPARTUM CARDIOMYOPATHY Status: Chronic - Plan Chest pain is reproducible and likely noncardiac. On antibiotics for UTI. Cr level improving with gentle hydration. Stable for transfer out of the CCU. Hopefully can be discharged soon.
[2020-01-17] MEDS ORDERED: Vancomycin HCl 750 MG in Sodium Chloride 0.9% 250 ML 250 ML IVPB SCH (20:00)
[2020-01-17] MEDS ORDERED: Carvedilol 3.125 MG TAB PO SCH (20:00)
[2020-01-17] MEDS ORDERED: DOBUTamine 500 mg/250 ml 500 MG in Premix Bag 1 BAG IVPB PRN (21:07)
[2020-01-17] MEDS ORDERED: Calcium Gluconate 4.6 MEQ in Sodium Chloride 0.9% 100 ML IVPB SCH (21:30)
[2020-01-17] MEDS: Aspirin Chewable 81 MG TAB PO SCH (21:40)
[2020-01-18] MEDS: Morphine 4 MG/ML VIAL SLOW IVP PRN ×4 (01:36→21:15)
[2020-01-18] MEDS: Vancomycin HCl 750 MG in Sodium Chloride 0.9% 250 ML 250 ML IVPB SCH (01:39)
[2020-01-18] MEDS: methylPREDNISolone Sod Succ 40 MG VIAL IVP SCH ×4 (01:39→14:22)
[2020-01-18] MEDS ORDERED: Calcium Gluconate 4.6 MEQ in Sodium Chloride 0.9% 100 ML IVPB SCH (03:00)
[2020-01-18 04:56] LABS: INR-International Normal Ratio 1.2; PTT 27.5 sec (22.9-36.1); Prothrombin Time 14.7 sec (12.0-14.7)
[2020-01-18 05:11] LABS: Band 24 % (5-11); Hemoglobin 10.2 g/dL (12.0-16.0); Lymphocytes 1 % (21-51); MDiff Complete? YES; Mean Corpuscular HGB CONC 30.9 g/dL (32.0-36.0); Mean Corpuscular Hemoglobin 30.7 pg (27.0-31.0); Mean Corpuscular Volume 99.4 fL (78.0-98.0); Mean Platelet Volume 7.8 fL (7.4-10.4); Monocytes 3 % (0-10); Neutrophil 72 % (42-75); Platelet Count 50 thou/uL (130-400); Platelet Morphology Comment Appears Decreased; RBC Distribution Width 13.2 % (11.5-14.5); Red Blood Cell (RBC) Count 3.32 mill/uL (4.20-5.40); White Blood Cell (WBC) Count 8.8 thou/uL (4.8-10.8)
[2020-01-18 05:20] LABS: ALT (SGPT) 46 U/L (8-55); AST (SGOT) 20 U/L (5-34); Albumin 2.3 g/dL (3.5-5.0); Alkaline Phosphatase 151 U/L (40-110); Anion Gap 13 mmol/L (10-20); BUN (Urea Nitrogen) 25 mg/dL (7.0-18.7); Bilirubin, Total 0.4 mg/dL (0.2-1.2); Calc. Creatinine Clearance 49 mL/min (70-130); Calcium 8.3 mg/dL (7.8-10.44); Carbon Dioxide 17 mmol/L (22-29); Chloride 106 mmol/L (98-107); Estimated GFR-MDRD 55; Globulin 2.8 g/dL (2.4-3.5); Glucose 141 mg/dL (70-105); Magnesium 2.4 mg/dL (1.6-2.6); Potassium 4.8 mmol/L (3.5-5.1); Protein, Total 5.1 g/dL (6.0-8.3); Sodium 131 mmol/L (136-145)
[2020-01-18] MEDS: MEROPENEM 1 GM/50 ML 1 GM in Premix Bag 1 BAG IVPB SCH ×2 (05:32→18:05)
--- NOTE | 2020-01-18 08:04 | CON ---
DATE OF CONSULTATION: 01/17/2020 This is from [facility]. REASON FOR CONSULTATION: Management of patient with low ejection fraction in shock. HISTORY OF PRESENT ILLNESS: Ms. Earnestine Valle, a 39-year-old female, with known heart failure with reduced ejection fraction due to cardiomyopathy, presented in shock. She has quite a long history. Her cardiomyopathy started at age 20.presenting with syncope. She required a pacemaker implantation. She was dependent on pacemaker for quite a while. She did grow up and did fairly well. She did have a child in 2003.However, she developed a drug abuse problem in about 2007 and 2008. She lost custody of her daughter due to drug use, Afterwards she stopped drug use, was able to do better, and then she remarried, and then she had a second child in 2012. She developed what was thought as peripartum cardiomyopathy. She went into severe shortness of breath and severe edema after giving . It was reported her EF went as low as about 10% to 15 %. With treatment, she improved. However, she relapsed back into drug use in 2016 and 2017, it was methamphetamine. Eventually, severe shortness of breath and severe edema caused hospital admission and caused her to quit drug use. She was in rehabilitation in the winter of 2017 until August 2018. She was there for 4 months. She believed that she has been clean since then. She had an episode of heart failure exacerbation in December of 2018 that was quickly corrected. Since December of 2018, she has been doing quite well. She was well compensated and apparently able to live fairly normal life. She said that she lives at [address] land that belongs to her parents. She lives in a trailer behind her parents' house. She takes care of her disabled son. She is able to walk up and down hill. She can walk entire length of [employer] [place] without difficulty. She was at her well-compensated state until recently. She said that she had a toothache about 2 to 3 weeks ago, just kind of persistent. This started approximately 23 of December. Then on Tuesday, January 13, she developed anterior chest pain. She said it was diffuse in nature, but burning and tight like a band. Taking a hot shower will relieve the pain a bit. Putting cold items on the chest makes the pain worse. However, if she leans forward that the pain would decrease, leaning forward will give temporary decreases in pain. Her chest pain got worse on January 14 and then it started to spread throughout her body. It went to her arms and hands and her back also hurt. The diffuse pain and feeling generally bad progressively worsened on Tuesday, especially on Tuesday night. Her said that she looks like she was having a seizure-like state. Eventually, combination of diffuse pain and feeling bad that caused her to call 911. Then, she was seen in ER on January 15. At first , she was discharged from ER. However, her symptoms worsened, she returned to the ER. She was in shock at the ER. Her systolic blood pressure was in the mid 60s. She also has abnormal heart rate of around 60 to low 70. She was in shock, but then she has abnormal heart rate response. It is most likely due to her completely dependence on the pacemaker. She received a right subclavian central line. Over 2.5 L fluids were given. She also received norepinephrine. Combination of norepinephrine and fluids brought her blood pressure back up. She also was broadly treated with vancomycin, nd meropenem for presumed sepsis. Due to her state, she also received Solu-Medrol at 40 mg IV q.6 hours. This combination brought her blood pressure up and then relieved her diffuse pain including her chest pain. However, now she noticed that she is getting puffy all over her hands and her arms and especially her abdomen. Although, she feels good, she is a little concerned about getting too much IV fluids. PAST MEDICAL HISTORY: 1. Cardiomyopathy, requiring pacemaker at age 20. 2. 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 3. Heart failure with reduced ejection fraction, nonischemic cardiomyopathy, EF has been low as 10% to 15%. SOCIAL HISTORY: She is a cigarette smoker. She started at age 12 and still smokes today. She was a heavy smoker one time. She claims she only down to 2 to 3 cigarettes per day. She denied alcohol use. She admitted to illicit drug use. First heavy drug use in 2008 that led to CPS taking her daughter. She relapsed into methamphetamine use in 2016 and 2017. However, she stated she has been clean since July 2018. FAMILY HISTORY: Her father is well at age 60s without any medical problems. Her mother is still alive at age 60s. She worked at [employer] as a respiratory therapist. Ms. Valle is the only child, so she does not have any siblings. REVIEW OF SYSTEMS: GENERAL: Currently, there is no fever, chills, or productive cough. HEENT: There is no change in vision, hearing, or swallowing. PULMONARY: She is breathing well easily. CARDIAC: She denies palpitations or syncope. Right now, she is chest pain- free. GI: She can eat. There is no diarrhea. : She can urinate. MUSCULOSKELETAL: She did have back pain, but that went away with treatment. NEUROLOGIC: She does not complain of any focal deficits or weaknesses. PSYCHIATRIC: She is anxious about what is happening to her. She does not quite understand. MEDICATIONS: Her current medications are 1. Solu-Medrol 40 mg IV q.6 hours. 2. Tylenol 650 mg p.o. q.4 hours p.r.n. 3. Sodium bicarbonate 650 mg p.o. t.i.d. 4. Vancomycin. 5. Carvedilol 3.125 mg twice per day. 6. Famotidine 20 mg daily. 7. Meropenem. 8. Aspirin 81 mg daily. 9. Tylenol No. 3 q.6 hours p.r.n. 10. Normal saline currently running at 50 mL/hour. PHYSICAL EXAMINATION: VITAL SIGNS: Heart rate 66 and blood pressure 97/57, prior 115/69. Her oxygen saturation is 97% on room air. GENERAL: She is alert and conversational, sitting comfortably in bed. She is very talkative and energetic. HEENT: Shows EOMI with moist mucosa. No oropharynx. There is poor dentition. NECK: Her JVP is now elevated at about 13 cm, so that is 3 cm above the clavicle while sitting up. She is starting to get volume overloaded. PULMONARY: She has good air movement bilateral. There are no crackles. CARDIAC: Regular rate and rhythm with S1 and S2. There is 2/6 holosystolic murmur at the apex. ABDOMEN: Soft and nontender, but is somewhat edematous and there is a touch of ascites. EXTREMITIES: Lower extremities are warm and well perfused with positive dorsalis pedis pulses bilaterally. There is minimal edema. LABORATORY DATA: Sodium 134, potassium 4.9, bicarb 20, BUN 34, creatinine is 1.44, and calcium bit low at 8.1. Total bilirubin is normal at 0.6. ALT is slightly elevated at 70. Her BNP is 433. PROCEDURE: Her MICRO COMPUTER SPECIALIST-D device was interrogated and Programming Adjusted 1. It is [employer]tronic device. 2. Model number Cedric MRI Quad MICRO COMPUTER SPECIALIST-D [id number]: Serial #[id number]. 3. She has 3 leads consist of a right atrially lead, a right ventricularly, and also a left ventricular lead. The device is set at DDDR with lower rate of 60 beats per minute. She is 60% A paced - Vpaced, and then 31.6% A sensed V paced since May 2019. Her thoracic impedance increased significantly prior to admission. This shows that she was dry. She was not aware she was dry. The thoracic impedance only went down within the last 24 to 48 hours that corresponded with IV fluid resuscitation. Histogram of ventricular rate showed there are some high rates at 110 to 120s. She has two recent bouts of arrhythmia, one on January 12 and one on January 13. They are both atrial events that she has extreme fast atrial tachycardia and also looks like atrial fibrillation. At some point, she had a fast conduction. Those events last between 3 minutes to 4.5 minutes. 4. Testing: her heart demonstrated complete heart block without ventricular escape rhythm; therefire 4. Programing: sensing and tracking was reduced down to 130 BPM to prevent fast SVT/AFIB to control MICRO COMPUTER SPECIALIST-D to drive overall tachycardia. ASSESSMENT: A 39-year-old female experienced shock of unclear cause. It is not caused by congestive heart failure exacerbation. She was compensated beforehand, and her device showed that she had increasing thoracic impedance showing that she was dry. This does not fit with congestive heart failure exacerbation. However, her pacemaker dependence caused inappropriate low heart rate when she was in shock. An underlying inflammatory process is the most probable cause of her shock. She had diffuse inflammation including a spot on her thighs and her fingers and also significant drop in the platelet count suggests that a vasculitis process is possible. Still blood cultures negative so far. Sepsis is also possible. The inflammatory process could have triggered the pericarditis. Her symptoms fit pericarditis very well, especially with her diffuse constant chest pain that is relieved with leaning forward. EKG is not going to be diagnostic in her because she is constantly paced. Echocardiogram was also reviewed by me. Her LVIDd is 4.8 cm. Her left ventricular ejection fraction is about 20%. She has very slowed myocardial relaxation velocity e' of 5. The marking on echo report is incorrect, it is actually much slower than 5. She has surprisingly thick septum, she has mitral regurgitation. 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 Although, her right ventricular size is normal, she has very much depressed right ventricular function. Her MICRO COMPUTER SPECIALIST-D leads look a bit suspicious and her tricuspid valve a bit enlarged. This suggests her MICRO COMPUTER SPECIALIST-D lead endocarditis is also possible, especially in light of her toothache for 3 weeks. In summary, she has an undiagnosed inflammatory process that put her in shock. Solu-Medrol probably was what helped her the most in terms of symptom relief. Now, we need to find out what caused the inflammatory process. Please see the following for my recommendations. RECOMMENDATIONS: 1. Please complete new set of labs that include CRP, sedimentation rate, rheumatoid factor, TRINA, and procalcitonin level. This should start screening process for inflammatory process. 2. Please place PIV. She does not have a central line anymore. 3. Please discontinue IV fluids. She is starting to fill up. We do not want to tip her over into heart failure territory. 4. If her systolic blood pressure drops below 95 mmHg, please start dobutamine 2.5 mcg/kg/min. At that point, please give me a call. I will be happy to come in tonight to put in a central line, if needed to be. 5. It would be webb to continue with broad-spectrum antibiotic coverage until at least for 48 hours in case this is endocarditis. 6. I agree with potential transesophageal echocardiogram. With some suspicion of the leads and the tricuspid valve that area needs to be looked at. 7. I did interrogate her device. She is completely pacemaker dependent. She has complete heart block. Her sinus node will not pass. Consequently, if pacemaker lead extraction is needed, it will be a difficult process. We will need to transfer her to someplace that can extract her lead, but then, they will require to placement of a new temporary lead before extracting old lead because she is pacemaker dependent. 8. I strongly encouraged Ms. Valle to stop cigarette smoking. She agrees to it. She understands that cigarette smoking would disqualify her for heart transplant consideration. She also knows that she has to be off cigarettes for at least 6 months before even being considered. This provided quite a bit of motivation for her to stop smoking. It has been a pleasure of seeing Ms. Valle. She is quite complicated case. If you have any questions, please give me a call. Job ID: [id number] [email or web address]
[2020-01-18] MEDS: Sodium Bicarbonate Tab 325 MG TAB PO SCH ×3 (08:54→21:06)
[2020-01-18] MEDS: Famotidine 20 MG TAB PO SCH (08:54)
[2020-01-18] MEDS: Carvedilol 3.125 MG TAB PO SCH ×2 (08:55→16:15)
--- NOTE | 2020-01-18 11:52 | PRG ---
DATE OF SERVICE: 01/18/2020 SERVICE: Nephrology. SUBJECTIVE: A 39-year-old female with cardiomyopathy, admitted due to worsening generalized weakness, body aches, and hypotension. Nephrology has seen the patient for hyponatremia and acute kidney injury. The patient has improved and is currently off pressors and was subsequently transferred out of the ICU. Reports feeling better and complains of hunger. OBJECTIVE: VITAL SIGNS: Temperature 98.6, pulse 61, respiratory rate 16, SpO2 of 93% on room air, blood pressure is 159/86. I and O in the last 24 hours showed total intake of 2280 with total output of 500. GENERAL: Small-framed young female, in no distress. Afebrile. Anicteric. Acyanotic. HEENT: Normocephalic, atraumatic. Oral mucosa is moist. CARDIOVASCULAR: Regular rhythm and rate with normal heart sounds 1 and 2. RESPIRATORY: Fair air entry bilaterally with no obvious crackle or rhonchi or use of accessory muscles. GI: Full, soft, nontender, nondistended with normal bowel sounds. EXTREMITIES: Grossly normal looking, atraumatic, with no edema or erythema. HOME HEALTH CLINICAL LIAISON: Conscious and alert and oriented x3 with appropriate mental status. LABORATORY DATA: CBC showed WBC count of 8.8, hemoglobin of 10.2, MCV of 99.4, and platelet of 72. Chemistry showed sodium 131, potassium 4.8, chloride 106, CO2 of 17, BUN 25, creatinine 1.12, glucose 141, calcium 8.3, magnesium 2.4, total bilirubin 0.4. AST 20, ALT 46, alkaline phosphatase 151, total protein 5.1, albumin 2.3. ASSESSMENT: 1. Acute kidney injury: Due to hemodynamic factors related to presumed septic shock and volume depletion. Creatinine continued to trend downwards towards baseline with improvement of hemodynamics and IV fluid therapy. Creatinine is down to 1.1 from 2.1 on presentation. 2. Hyponatremia: [place] to be due to volume depletion associated with appropriate ADH secretion. Levels are trending up with optimization of hemodynamics and pentecostalism of effective intravascular volume. Oral intake improved and it is expected this will improve sodium level. 3. Septic shock: Etiology is unclear, but UTI and possible endocarditis are considered. The patient is currently off pressors. Still getting antibiotics. 4. Metabolic acidosis: Due to IV fluid therapy and acute kidney injury and sepsis. 5. cardiomyopathy with EF of about 15-20. 6. Hypotension, improved. PLAN: 1. We will continue sodium bicarbonate therapy orally. 2. Agree with discontinuation of IV fluid therapy given EF of 15-20 to avoid fluid overload. 3. With increasing oral intake, it is anticipated that plasma sodium will increase. We may have to come back on free water intake. We will repeat electrolytes and renal function test in the morning. Further treatment to follow depending on hospital course. Job ID: [id number]
[2020-01-18] MEDS ORDERED: Iopamidol-370 76% 500 ML 1 ML ONE (12:51)
--- NOTE | 2020-01-18 13:11 | PQF ---
CLINICAL DOCUMENTATION IMPROVEMENT CLARIFICATION FORM: ICD-10 Updated PLEASE DO AN ADDENDUM TO THE PROGRESS NOTE WITH ANY DOCUMENTATION UPDATES OR ADDITIONS AND CARRY THROUGH TO DC SUMMARY. THANK YOU. DATE: 01/18/2020 ATTN: Dr. Peralta Please exercise your independent, professional judgment in responding to the clarification form. Clinical indicators are provided on the bottom of this form for your review Please check appropriate box(es): [ ] Sepsis present on admission [ ] Sepsis NOT present on admission [ ] Unable to determine Due to: [ x ] Severe sepsis present on admission [ ] Severe Sepsis NOT present on admission [ ] Unable to determine with acute organ dysfunction of: [ ] Septic Shock present on Admission [ ] Septic Shock NOT present on Admission [ ] Unable to determine [ ] Localized infection without sepsis [ ] Other diagnosis [ ] Unable to determine For continuity of documentation, please document condition throughout progress notes and discharge summary. Thank You. CLINICAL INDICATORS - SIGNS / SYMPTOMS / LABS / RESULTS AND LOCATION IN MR H&P 01/15: Workup in the ER, the pt was hypotensive with a BP of 63/36. After fluid bolus, her BP went up to 85/50. Elevated creatinine of 2.1 . Pt said she has been having diarrhea over the last few days. Assessment: NBA. UTI 01/15 (Obi) Temp. 98.6, pulse 64, resp. 17, SpO2 96% RA, BP 74/40 Initial lactic acid was 3.9 C-reactive protein is 20.21 Assessment: NBA. Most likely d/t shock Shock. Etiology unclear. Most likely septic shock. Elevated lactic acid and evidence of end-organ damage as noted with NBA and transaminitis are consistent. Urinalysis also is suggestive of UTI 01/16 (Rica) New onset of fever, chest pain, myalgias, nodular lesion in the left mid thigh, hypotension, and sepsis syndrome. 01/16 (Dimas) UTI NBA RISKS: H&P 01/15: PMH cardiomyopathy. CHF. Hypotension. Cardiac pacemaker. Assessment: NBA. UTI TREATMENT: Event note 01/15: Pt transferred to CCU due to persistent hypotension. Will start pressors 01/15 (Arturo) The pt was given 2 L of IV fluid. She is now on Levophed. ID Consult 01/15 Thank you, Natalee (This form is maintained as a part of the permanent medical record) 2015 [employer] All Rights Reserved Natalee Hicks, RN, BSN [email or web address]
--- NOTE | 2020-01-18 15:05 | PDOC.PALPN ---
Palliative Progress Note - Subjective Awake alert, converses easily. Continues to complain of discomfort to posterior aspect of left thigh, slight bruising with erythema and warmth to site. - Objective Vital Signs: Vital Signs - Most Recent Temp Pulse Resp BP Pulse Ox 98.4 F 61 18 104/57 L 95 01/18/20 11:25 01/18/20 11:25 01/18/20 11:25 01/18/20 11:01/18/20 11:25 - Physical Exam Constitutional: NAD HEENT: moist MMs, sclera anicteric Respiratory: clear to auscultation bilateral Cardiovascular: RRR Gastrointestinal: continent, soft, non-tender, positive bowel sounds Genitourinary: continent Musculoskeletal: no cyanosis, no clubbing Neurology: moves all 4 limbs, no focal deficits Skin: cap refill <2 seconds, no lesions, no rash - Assessment (1) Palliative care encounter Code(s): Z51.5 - ENCOUNTER FOR PALLIATIVE CARE Current Visit: Yes Status: Acute (2) Acute on chronic systolic CHF (congestive heart failure) Code(s): I50.23 - ACUTE ON CHRONIC SYSTOLIC (CONGESTIVE) HEART FAILURE Current Visit: No Status: Acute (3) Drug abuse Code(s): F19.10 - OTHER PSYCHOACTIVE SUBSTANCE ABUSE, UNCOMPLICATED Current Visit: No Status: Chronic (4) cardiomyopathy Code(s): O90.3 - PERIPARTUM CARDIOMYOPATHY Current Visit: No Status: Chronic - Plan Plan: Provided Mrs Valle a list of resources to continue her journey in recovery. She was tearful at todays visit secondary to conflict with her . Discussed health coping measures. She appears to have knowledge of her cardiovascular disease but a gap in knowledge of severity and impact of life choices. She is hopeful for improved health status with continuation of aggressive measures. Therapeutic listening and emotional support. Communicated with Dr Peralta [40] minutes spent on this encounter with >50% of the time in counseling and coordination of care. - ROS Constitutional: alert, weakness Eyes: other (Negative for visual changes) ENT: other (Negative for congestion and throat irritation) Respiratory: dry cough, other Cardiology: edema Gastrointestinal: other (Negative for nausea, vomiting) Genitourinary: other (Negative for hematuria, frequency) Musculoskeletal: other (Pain to posterior aspect of left thigh) Neurological: other (Denies confusion, dizziness) Psychological: anxiety
--- NOTE | 2020-01-18 16:18 | PDOC.HOSPP ---
- Subjective Encounter Date: 01/18/20 Encounter Time: 12:30 Subjective: Patient seen and examined for Sepsis. Feeling better. No CP. No new complaints. No overnight events - Objective Vital Signs & Weight: Vital Signs (12 hours) Temp Pulse Resp BP Pulse Ox 01/18/20 15:26 98.1 F 61 18 107/57 L 94 L 01/18/20 11:25 98.4 F 61 18 104/57 L 95 01/18/20 08:55 98.6 F 61 16 159/86 H 93 L Weight Weight 102 lb 3.2 oz Most Recent Monitor Data Heart Rate from ECG 60 NIBP 111/70 NIBP BP-Mean 83 Respiration from ECG 21 SpO2 100 I&O: 01/17/20 01/18/20 01/19/20 06:59 06:59 06:59 Intake Total 4314 2280.4 Output Total 2100 500 Balance 2214 1780.4 Result Diagrams: 01/18/20 04:20 01/18/20 04:20 EKG Reviewed by me: Yes (Tele paced) Hospitalist ROS - Review of Systems Respiratory: denies: cough, dry, shortness of breath, hemoptysis, SOB with excertion, pleuritic pain, sputum, wheezing, other Cardiovascular: reports: edema. denies: chest pain, palpitations, orthopnea, paroxysmal noc. dyspnea, light headedness, other - Medication Medications: Active Medications Generic Name Dose Route Start Last Admin Trade Name Freq PRN Reason Stop Dose Admin Acetaminophen 650 mg 01/16/20 10:05 01/16/20 12:32 Tylenol PO 650 mg Q4H PRN Administration Headache/Fever or Mild Pain Aspirin 81 mg 01/16/20 21:00 01/17/20 21:40 Aspirin Chewable PO 81 mg HS ROSETTA Administration Carvedilol 3.125 mg 01/18/20 08:00 01/18/20 08:55 Coreg PO 3.125 mg BID-WM ROSETTA Administration Famotidine 20 mg 01/18/20 09:00 01/18/20 08:54 Pepcid PO 20 mg DAILY ROSETTA Administration Meropenem 1 gm/ Device 50 mls @ 100 mls/hr 01/16/20 18:00 01/18/20 05:32 IVPB 50 mls Q12H ROSETTA Administration Vancomycin HCl 750 mg/ Sodium 250 mls @ 250 mls/hr 01/18/20 02:00 01/18/20 01 :39 Chloride IVPB 250 mls 0200 ROSETTA Administration Methylprednisolone Sodium Succinate 40 mg 01/18/20 02:00 01/18/20 14:22 Solu-Medrol IVP 40 mg 0200,0800,1400,2000 ROSETTA Administration Morphine Sulfate 4 mg 01/16/20 16:45 01/18/20 14:21 Morphine SLOW IVP 4 mg Q4H PRN Administration Pain Sodium Bicarbonate 650 mg 01/17/20 15:00 01/18/20 14:22 Bicarbonate, Sodium PO 650 mg TID ROSETTA Administration Sodium Chloride 10 ml 01/16/20 21:00 01/18/20 09:07 Flush - Normal Saline IVF 10 ml Q12HR ROSETTA Administration - Exam General Appearance: NAD Heart: RRR, no gallops, no rubs, normal peripheral pulses Respiratory: no wheezes, no rales, no ronchi, normal chest expansion Gastrointestinal: non-tender, non-distended, normal bowel sounds, no guarding, no rigidity Extremities: no cyanosis, no clubbing, 1+ LE edema Neurological: no new deficit Psychiatric: normal affect, A&O x 3 Hosp A/P - Plan DVT proph w/SCDs Severe Sepsis/Septic shock prob due to AICD lead Endocarditis vs UTI Gen weakness/Myalgias with atypical CP NBA on CKD 2 Metabolic Acidosis/Lactic acidosis due to #1 Chronic systolic HF - now EF 15-20% Type 2 MO - POA h/o HTN Hyponatremia h/o CM Tob dep Thrombocytopenia - prob due to Sepsis PLAN: Cultures were obtained after Atbx - negative so far Cont IV Vanc/Meropenem Monitor Vanc level Change IV steroids to PO AM labs Await cultures Add fluid restriction All consultants input appreciated
[2020-01-18] MEDS ORDERED: Sodium Chloride 0.9% 500 ML IV SCH (16:30)
--- NOTE | 2020-01-18 16:30 | PRG ---
DATE OF SERVICE: 01/18/2020 This is from [facility]. SUBJECTIVE: Ms. Valle had good night. She was able to sleep. She is essentially pain free. She said she had an episode of chest pressure, but then it went away. With cessation of IV fluids, she can breathe better. She is able to urinate on her own. Then, she described her left upper jaw tooth pain that started about 3 weeks ago, approximately December 23. She said that she took something [id number] for it. She attempted to contact her dentist. Due to COVID-19, she was not able to get in. She says that it is better now, but still hurts. REVIEW OF SYSTEMS: GENERAL: She denies fever, chills, or productive cough. HEENT: There is no change in vision, hearing, or swallowing. PULMONARY: She is breathing easy. CARDIAC: There are no palpitations or syncope. GI: She is eating well. : She is urinating well. MUSCULOSKELETAL: She has some back pain, but then that went away. INTEGUMENT: She has a red-purple spot that is greater than 8 cm in length, about 3 or 4 cm in width at her left upper inner thigh. NEUROLOGIC: There are no new complaints of focal deficits or weaknesses. MEDICATIONS: Include: 1. Aspirin 81 mg daily. 2. Carvedilol 3.125 mg twice a day. 3. Dobutamine 2.5 mcg/kg/minute if her systolic blood pressure falls below 95. 4. She is on Solu-Medrol 40 mg IV q.6 hours. 5. She is on meropenem 1 g q.12 hours. 6. She is also on vancomycin 750 mg daily as dosed by Pharmacy. PHYSICAL EXAMINATION: VITAL SIGNS: Heart rate 61, which is paced. Blood pressure 104/57. GENERAL: She is alert, conversational, sitting comfortably in bed. HEENT: Show EOMI. Oropharynx was examined. She has a dark spot that is about 1 cm in diameter or bigger in her left upper jaw where the tooth is. It appears to be an abscessed tooth-like. She also has tenderness to palpation at her left side of face corresponding to the area. NECK: Her JVP is elevated at about 12 cm. PULMONARY: She has good air movement bilaterally and clear to auscultation bilaterally. CARDIAC: Regular rate and rhythm. Normal S1 and S2. There is 2/6 holosystolic murmur at the apex. ABDOMEN: Soft, nontender, and nondistended. Positive bowel sounds. EXTREMITIES: Lower extremities; she has a long dark and purple spot in her left upper inner thigh that is about 8 cm long and 3 cm wide. It is firm and also warm to palpation. This has an appearance of an embolic spot. Her feet are warm and well perfused. There is no edema. Positive dorsalis pedis pulse bilaterally. LABORATORY VALUES: Sodium 131, potassium 4.8, BUN 25, creatinine 1.12. Her BNP value has increased to 1659. She also has elevated procalcitonin level at 3.38. She also has elevated C-reactive protein at 18.86. ASSESSMENT: 39-year-old female has likely infected tooth/abscess as a cause of her overall septic-like picture. This has been ongoing for at least 3 weeks. This spot could have seeded her automatic implantable cardioverter-defibrillator/pacer leads and also one of her cardiac valves. Afterwards, she could have thrown off a few septic emboli, one of which appeared at her left inner thigh. So, this is a possible scenario. However, her blood culture is still negative. This is not something that can easily be cultured. On the other hand, high procalcitonin level and high CRP indicate it is an infectious process. Thus, at this point, we will need to investigate this. Transesophageal echocardiogram may be needed in the near future. Please see the following for more recommendations. RECOMMENDATIONS: 1. Please do CT of the neck with contrast per Radiology, so this will see the bone structure over her neck, and then also they will follow up to her mandible to see the potential abscess. 2. We will consider also doing CT scan of her chest, abdomen, and pelvis for hidden abscesses, especially there is something going on in her left leg. So, after she gets her contrast dye alone, please give normal saline fluid at 50 mL an hour for 6 hours to help to clear the dye load. If she becomes edematous, we will need to use low-dose IV Lasix. 3. If her systolic blood pressure drops below 95, then use dobutamine at 2.5 mcg/kg/minute. It has been a pleasure taking care of Ms. Earnestine Leonard. If you have any questions, please give me a call. Job ID: [id number] [id number]
--- NOTE | 2020-01-18 16:51 | PDOC.CPN ---
- Subjective Date: 01/18/20 Time: 16:56 Interval history: The pt seen and examined. No overnight events. No cardiac complaints. - Objective Allergies/Adverse Reactions: Allergies Allergy/AdvReac Type Severity Reaction Status Date / Time Penicillins Allergy Rash Verified 05/18/19 15:12 Visit Medications: Current Medications Acetaminophen (Tylenol) 650 mg PO Q4H PRN PRN Reason: Headache/Fever or Mild Pain Last Admin: 01/16/20 12:32 Dose: 650 mg Acetaminophen/Codeine Phosphate (Tylenol #3) 1 tab PO Q6H PRN PRN Reason: Moderate Pain (4-6) Albuterol/Ipratropium (Duoneb) 3 ml NEB [id number] PRN PRN Reason: SOB &/or Wheezing Aspirin (Aspirin Chewable) 81 mg PO HS [facility] Last Admin: 01/17/20 21:40 Dose: 81 mg Carvedilol (Coreg) 3.125 mg PO BID-[facility] Last Admin: 01/18/20 16:15 Dose: 3.125 mg Famotidine (Pepcid) 20 mg PO DAILY [facility] Last Admin: 01/18/20 08:54 Dose: 20 mg Meropenem 1 gm/ Device 50 mls @ 100 mls/hr IVPB Q12H [facility] Last Admin: 01/18/20 05:32 Dose: 50 mls Dobutamine HCl/Dextrose 500 mg (/ Device) 250 mls @ 3.39 mls/hr IVPB INF PRN; Protocol PRN Reason: SBP < 95 Vancomycin HCl 750 mg/ Sodium (Chloride) 250 mls @ 250 mls/hr IVPB 0200 [facility] Last Admin: 01/18/20 01:39 Dose: 250 mls Sodium Chloride (Normal Saline 0.9%) 500 mls @ 50 mls/hr IV .Q10H [facility] Stop: 01/19/20 02:29 Miscellaneous Medication (Pharmacy To Dose) 1 each IVPB PRN PRN PRN Reason: Pharmacy to dose Morphine Sulfate (Morphine) 4 mg SLOW IVP Q4H PRN PRN Reason: Pain Last Admin: 01/18/20 14:21 Dose: 4 mg Prednisone (Prednisone) 40 mg PO BID-[facility] Sodium Bicarbonate (Bicarbonate, Sodium) 650 mg PO TID [facility] Last Admin: 01/18/20 14:22 Dose: 650 mg Sodium Chloride (Flush - Normal Saline) 10 ml IVF Q12HR [facility] Last Admin: 01/18/20 09:07 Dose: 10 ml Sodium Chloride (Flush - Normal Saline) 10 ml IVF PRN PRN PRN Reason: Saline Flush Vital Signs & Weight: Vital Signs Temp Pulse Resp BP Pulse Ox 01/18/20 15:26 98.1 F 61 18 107/57 L 94 L 01/18/20 11:25 98.4 F 61 18 104/57 L 95 01/18/20 08:55 98.6 F 61 16 159/86 H 93 L Weight 102 lb 3.2 oz - Physical Exam General: alert & oriented x3 HEENT: mucus membranes moist Neck: supple neck Cardiac: regular rate and rhythm, S1/S2 Lungs: clear to auscultation, decreased breath sounds Neuro: cranial nerve 2-12 intact Extremities: no edema - Labs Result Diagrams: 01/18/20 04:20 01/18/20 04:20 Troponin/CKMB CK-MB (CK-2) 1.5 ng/mL (0-6.6) 01/16/20 02:20 Troponin I 0.158 ng/mL (< 0.028) H 01/16/20 09:33 - Telemetry Sinus rhythms and dysrhythmias: sinus rhythm - Assessment/Plan Assessment/Plan: 1. Acute on Chronic systolic HF with EF 15-20% - stable with RA; On Coreg 2. Severe Sepsis/Septic shock - prob due to AICD lead Endocarditis vs UTI - plan for DIONNE when her condition is more stable 3. CMY with hx of AICD placement in 2019 - 4. 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 HTN - hypotensive; will start Dobutamin 2.5mcg/kg/min if SBP <[address] Santana 6. Trombocytopenia Pt. seen and eval. by me. I agree with the A/P by the MAIL FORWARDING SYSTEM MARKUP CLERK. The left thigh lesion is worse. She was noted to have a possible abcessed tooth today by Dr. Santana. CT scan of head and neck was ordered. it is possible that the leg lesion may be due to infected emboli. On Tuesday she will likely undergo a DIONNE to closer evlauate the AICD leads. If they are found to have vegetations then it is likely the entire system may need to be replaced. appreciate dr. santana's input.
[2020-01-18] MEDS: predniSONE 20 MG TAB PO SCH (18:03)
--- NOTE | 2020-01-18 19:16 | PRG ---
DATE OF SERVICE: 01/18/2020 SUBJECTIVE: Ms. Valle is transferred to [facility]. She is feeling better. The chest pain has resolved. Still has pain in the medial thigh, left side. The other side is okay. No respiratory symptoms. No abdominal pain. No diarrhea. OBJECTIVE: VITAL SIGNS: She has been afebrile. BP 107/57, pulse 61, respirations 18, and O2 saturation 94% to 95%. HEENT: Ocular movements conjugate. LUNGS: Symmetric air entry. HEART: S1 and S2, regular rate. ABDOMEN: Soft. EXTREMITIES: The medial thigh, left side has this livedo-reticularis type lesion, which is quite tender, indurated in the medial aspect of the left thigh. She moves all extremities equally. SKIN: The hands and feet have this acral erythema pretty much in all the fingers and toes. NEUROLOGIC: Cognitive function appears to be intact. LABORATORY DATA: White cell count is 8.8, hemoglobin 10.2, platelets 50, 24% bands. Sodium 131, creatinine 1.12, which is improved. Alkaline phosphatase 151, and BNP was 1600. Albumin 2.3. Blood cultures, no growth at 48 hours. Urine culture, no growth. I think she is scheduled for DIONNE soon. ASSESSMENT: 1. History of methamphetamine use intravenously, reportedly last time she used it was about a year ago. 2. cardiomyopathy, AICD in place, cardiac ablations, fever, abnormal echocardiogram with possible AICD lead vegetation. 3. Nodular lesion with purpura, left mid thigh of medial aspect. DISCUSSION: The differential diagnosis again includes endocarditis with embolic lesion to the thigh and other sites as the more likely scenario. The other possibility is that she injected methamphetamine in the subcutaneous tissues of the thigh. Vasculitis is another possibility. We will see what the DIONNE results show. Cultures look like they are going to remain negative, may consider next generation sequencing test, which might identify a pathogen even in the face of negative blood cultures. Job ID: [id number]
[2020-01-18 19:31] LABS: BHCG - Serum Negative (NEGATIVE); Pregs Control Background? CLEAR/WHITE (CLR/WHITE); Pregs Control Bar Appear? YES (CONTROL BAR)
[2020-01-18] MEDS: Aspirin Chewable 81 MG TAB PO SCH (21:07)
--- NOTE | 2020-01-18 21:24 | CT ---
CT OF THE SOFT TISSUES OF THE NECK WITH IV CONTRAST INDICATION: Concern for soft tissue abscess and sepsis; pain and swelling in the left jaw COMPARISON: None FINDINGS: Aerodigestive tract: Clear. Parotids/Submandibular/Thyroid glands: Normal. Lymph nodes: There are shotty appearing lymph nodes seen involving the upper neck. There are mildly prominent lymph nodes within the left supraclavicular region that are increased in number. There is edematous change involving the left supraclavicular region. There are enlarged lymph nodes in the med iastinum, the largest seen within the right paratracheal region measuring 1.4 cm. Lung Apices: There are peripheral groundglass airspace opacities within the upper lobes bilaterally. There is suspicion for small left pleural effusion. There is partial visualization of a multi lead AICD. Bones: No acute osseous abnormality. Incidentals: There is a dental amish involving the posterior right mandibular molar with periapical lucency suspicious for periodontal disease. There is also a dental amish involving the left posterior maxillary molar. IMPRESSION: 1. Dental and periodontal disease as above. 2. Nonspecific enlarged lymph nodes of the left supraclavicular region and mediastinum. 3. Patchy peripheral groundglass airspace opacities involving both upper lobes may reflect airspace e ramon; however, atypical infectious entities cannot be entirely excluded. Recommend consideration for COVID testing. Small left pleural effusion 4. Nonspecific edematous changes of the left supraclavicular soft tissues.
[2020-01-19] MEDS: Vancomycin HCl 750 MG in Sodium Chloride 0.9% 250 ML 250 ML IVPB SCH (02:23)
[2020-01-19 03:31] LABS: Vancomycin, Trough 4.9 ug/mL
[2020-01-19 05:04] LABS: Platelet Count 29 thou/uL (130-400)
[2020-01-19 05:21] LABS: ALT (SGPT) 32 U/L (8-55); AST (SGOT) 9 U/L (5-34); Albumin 2.3 g/dL (3.5-5.0); Alkaline Phosphatase 129 U/L (40-110); Anion Gap 12 mmol/L (10-20); BUN (Urea Nitrogen) 26 mg/dL (7.0-18.7); Bilirubin, Total 0.4 mg/dL (0.2-1.2); Calc. Creatinine Clearance 55 mL/min (70-130); Carbon Dioxide 21 mmol/L (22-29); Chloride 106 mmol/L (98-107); Estimated GFR-MDRD 60; Globulin 2.7 g/dL (2.4-3.5); Glucose 115 mg/dL (70-105); Magnesium 2.3 mg/dL (1.6-2.6); Potassium 5.3 mmol/L (3.5-5.1); Sodium 134 mmol/L (136-145)
[2020-01-19 05:22] LABS: Band 6 % (5-11); Lymphocytes 5 % (21-51); MDiff Complete? YES; Mean Corpuscular HGB CONC 32.6 g/dL (32.0-36.0); Mean Corpuscular Hemoglobin 31.2 pg (27.0-31.0); Mean Corpuscular Volume 95.7 fL (78.0-98.0); Mean Platelet Volume 12.6 fL (7.4-10.4); Monocytes 4 % (0-10); Neutrophil 85 % (42-75); Platelet Morphology Comment Appears Decreased; RBC Distribution Width 13.2 % (11.5-14.5); RBC Morphology Normal; Red Blood Cell (RBC) Count 3.22 mill/uL (4.20-5.40); White Blood Cell (WBC) Count 7.2 thou/uL (4.8-10.8)
[2020-01-19] MEDS: MEROPENEM 1 GM/50 ML 1 GM in Premix Bag 1 BAG IVPB SCH (06:17)
[2020-01-19] MEDS: Morphine 4 MG/ML VIAL SLOW IVP PRN ×4 (07:46→19:44)
[2020-01-19] MEDS: Famotidine 20 MG TAB PO SCH (08:22)
[2020-01-19] MEDS: Sodium Bicarbonate Tab 325 MG TAB PO SCH ×3 (08:22→19:44)
[2020-01-19] MEDS: predniSONE 20 MG TAB PO SCH ×2 (08:23→18:10)
[2020-01-19] MEDS: Carvedilol 3.125 MG TAB PO SCH ×2 (08:23→18:10)
[2020-01-19] MEDS ORDERED: Morphine 4 MG/ML VIAL SLOW IVP PRN (09:44)
[2020-01-19] MEDS ORDERED: Furosemide 40 MG/4 ML VIAL SLOW IVP SCH (09:45)
[2020-01-19] MEDS ORDERED: Milrinone Lactate/D5W 20 MG in Premix Bag 1 BAG IV SCH ×2 (10:00→10:30)
[2020-01-19] MEDS ORDERED: Milrinone Lactate/D5W 20 MG in Premix Bag 1 BAG IV PRN (10:15)
[2020-01-19] MEDS ORDERED: traMADol HCl 50 MG TAB PO PRN (10:22)
[2020-01-19 10:25] LABS: PTT 26.3 sec (22.9-36.1); Prothrombin Time 13.6 sec (12.0-14.7)
[2020-01-19 10:26] LABS: Hemoglobin 10.1 g/dL (12.0-16.0); Mean Corpuscular HGB CONC 32.7 g/dL (32.0-36.0); Mean Corpuscular Hemoglobin 31.1 pg (27.0-31.0); Mean Corpuscular Volume 95.2 fL (78.0-98.0); Mean Platelet Volume 12.3 fL (7.4-10.4); Platelet Count 32 thou/uL (130-400); RBC Distribution Width 13.1 % (11.5-14.5); Red Blood Cell (RBC) Count 3.25 mill/uL (4.20-5.40); White Blood Cell (WBC) Count 8.7 thou/uL (4.8-10.8)
[2020-01-19 10:41] LABS: Hypochromia SLIGHT = 6-15 cells (100X) (0-5/hpf); Lymphocytes 6 % (21-51); MDiff Complete? YES; Monocytes 6 % (0-10); Neutrophil 88 % (42-75); Platelet Morphology Comment Appears Decreased
--- NOTE | 2020-01-19 11:11 | PRG ---
DATE OF SERVICE: 01/19/2020 This is [facility]. SUBJECTIVE: Ms. Valle did not have a good day. She said that she had redeveloping diffuse chest pressure pain. It is much worse this morning. She is also feeling a little bit more short of breath. She feels like that she is filling up with fluid. She still has pain in her left upper jaw, but this has decreased a lot since the admission. She still have pain in her left inner thigh. REVIEW OF SYSTEMS: GENERAL: There is no fever or chills. HEENT: There is no changing in vision, hearing, or swallowing. PULMONARY: Please see HPI. CARDIAC: Please see HPI. GI: She is able to eat without nausea or vomiting. : She is urinating well. MUSCULOSKELETAL: See HPI. INTEGUMENT: Please see HPI. NEUROLOGIC: There are no new reports of focal deficits or weaknesses. PSYCHIATRIC: She is now anxious because pain does not seem to be better. CURRENT MEDICATIONS: Include: 1. Aspirin 81 mg daily. 2. Carvedilol 3.125 mg twice a day. 3. Pepcid at 20 mg daily. 4. Prednisone 40 mg b.i.d. Her antibiotic regimen consists of vancomycin and also meropenem. Telemetry was reviewed, she is mainly paced. Most of the time she is A-paced, V-paced. Occasionally, she has sinus tracking in V-paced. PHYSICAL EXAMINATION: VITAL SIGNS: Heart rate 61, paced. Blood pressure 124/79. GENERAL: She is alert and conversational, appear to be uncomfortable, sitting up in bed. HEENT: Show EOMI. Oropharynx with moist mucosa. NECK: Her JVP is not elevated today about 12 cm. PULMONARY: She has good air movement in bilateral top of lungs. However, she does have a right basilar crackles, this is a new today. CARDIAC: Regular rate and rhythm. Normal S1 and S2. There is a 2/6 holosystolic murmur at the apex. ABDOMEN: Soft and nontender. Positive bowel sounds. EXTREMITIES: Lower extremity, she still has that spot in her left upper inner thigh; however, the size has decreased erythema, that is turning more purple today. She has a slight increase edema in her feet and in her ankles. It is not quite pitting, but it is more than yesterday. LABORATORY VALUES: CBC shows white cell count 7.2, hemoglobin 10, and platelets 29, this is decreased from 50 yesterday. Her chemistry shows sodium 134, potassium 5.3, BUN of 26, creatinine 1.03. Her total bilirubin is normal at 0.4. Her AST and ALT are both normal. She has a low albumin at 2.3. CT scan showed there is a dental caries involving post right mandible molar and there is also a left posterior maxillary molar. There are also lymph nodes in her neck and chest, which per CT scan. ASSESSMENT: 39-year-old lady was admitted for shock of probable septic origin. Likely, event to be a sequence of 3 weeks of tooth infection that may have led to endocarditis and then that caused thromboembolic event. She also now has thrombocytopenia of unclear source. It can be a vasculitis process. She never received any heparin during this admission that can induce that. However, she has been receiving vancomycin and meropenem and also Pepcid. All three of these can also cause thrombocytopenia. She also has flipped into Heart failure status. Her elevated JVP, somewhat short of breath and diffuse chest pressure pain are symptoms and signs of heart failure. She also has a new right basilar crackles, this will need to do number of items to address all these situations. RECOMMENDATIONS: 1. Stop vancomycin and also stop meropenem for now. 2. Use levofloxacin [address] daily in [address] for now. 3. Stop famotidine. 4. Replace with Protonix 40 mg daily. 5. Stop aspirin for now 6. Lasix 40 mg IV one dose now. We will follow this today to see if this is sufficient. 7. To decongest and relieve myocardial stretch pain, we will use low-dose Milrinone starting at 0.125 mcg/kg/minute. If systolic blood pressure is over 90, we will increase 0.25 mcg/kg/minute. She does have a right ventricular dysfunction and LVEF about 20%. If the heart is volume overload, it can give you chest pressure pain. This is chosen over dobutamine because dobutamine can also cause thrombocytopenia. With Milrinone, we will need to start at a higher pressure sooner than later. 7. Check labs, this would include repeat CBC, type and screen, PTT, PT/INR and D-dimer, fibrinogen and fibrin split product. 8. We will ask Hematology-Oncology to help with management of thrombocytopenia. HIT panel and also serotonin release assay have been sent out, but there are no results back yet. We will ask the lab to see when the results will be coming back. It has been a pleasure taking care of Ms. Earnestine Valle. If you have any questions, please give me a call. Job ID: [id number] MTDD
[2020-01-19 12:27] LABS: FSP-Qualitative ABNORMAL (Normal)
[2020-01-19 12:28] LABS: FSP-Semiquantitative >=5 & <20 mcg/mL (Less than 5)
--- NOTE | 2020-01-19 12:47 | PDOC.CPN ---
- Subjective Date: 01/19/20 Time: 12:54 Interval history: The pt seen and examined. No overnight events. No cardiac complaints. - Objective Allergies/Adverse Reactions: Allergies Allergy/AdvReac Type Severity Reaction Status Date / Time Penicillins Allergy Rash Verified 05/18/19 15:12 Visit Medications: Current Medications Acetaminophen (Tylenol) 650 mg PO Q4H PRN PRN Reason: Headache/Fever or Mild Pain Last Admin: 01/16/20 12:32 Dose: 650 mg Acetaminophen/Codeine Phosphate (Tylenol #3) 1 tab PO Q6H PRN PRN Reason: Moderate Pain (4-6) Albuterol/Ipratropium (Duoneb) 3 ml NEB [id number] PRN PRN Reason: SOB &/or Wheezing Carvedilol (Coreg) 3.125 mg PO BID-[facility] Last Admin: 01/19/20 08:23 Dose: 3.125 mg Famotidine (Pepcid) 20 mg PO DAILY [facility] Last Admin: 01/19/20 08:22 Dose: 20 mg Dobutamine HCl/Dextrose 500 mg (/ Device) 250 mls @ 3.39 mls/hr IVPB INF PRN; Protocol PRN Reason: SBP < 95 Milrinone Lactate/Dextrose 20 (mg/ Device) 100 mls @ 1.82 mls/hr IV INF [facility]; Protocol Last Admin: 01/19/20 10:18 Dose: 100 mls Levofloxacin (Levaquin) 750 mg PO 0600 [facility] Morphine Sulfate (Morphine) 4 mg SLOW IVP Q4H PRN PRN Reason: Pain Last Admin: 01/19/20 12:29 Dose: 4 mg Morphine Sulfate (Morphine) 4 mg SLOW IVP Q6H PRN PRN Reason: Severe Pain (7-10) Prednisone (Prednisone) 40 mg PO BID-[facility] Last Admin: 01/19/20 08:23 Dose: 40 mg Sodium Bicarbonate (Bicarbonate, Sodium) 650 mg PO TID [facility] Last Admin: 01/19/20 08:22 Dose: 650 mg Sodium Chloride (Flush - Normal Saline) 10 ml IVF Q12HR [facility] Last Admin: 01/19/20 08:23 Dose: 10 ml Sodium Chloride (Flush - Normal Saline) 10 ml IVF PRN PRN PRN Reason: Saline Flush Tramadol HCl (Ultram) 50 mg PO Q12H PRN PRN Reason: Moderate Pain (4-6) Last Admin: 01/19/20 11:26 Dose: 50 mg Vital Signs & Weight: Vital Signs Temp Pulse Resp BP BP Pulse Ox 01/19/20 12:25 98.2 F 60 20 137/77 94 L 01/19/20 08:22 98 01/19/20 07:41 98.0 F 61 16 124/79 98 01/19/20 04:00 98.2 F 53 L 18 121/73 97 Weight 112 lb - Physical Exam General: alert & oriented x3 HEENT: mucus membranes moist Neck: supple neck Cardiac: regular rate and rhythm, S1/S2 Lungs: decreased breath sounds Neuro: cranial nerve 2-12 intact - Labs Result Diagrams: 01/19/20 09:54 01/19/20 04:01 Troponin/CKMB CK-MB (CK-2) 1.5 ng/mL (0-6.6) 01/16/20 02:20 Troponin I 0.158 ng/mL (< 0.028) H 01/16/20 09:33 - Telemetry Sinus rhythms and dysrhythmias: sinus rhythm - Assessment/Plan Assessment/Plan: 1. Acute on Chronic systolic HF with EF 15-20% - stable with RA; On Coreg; Lasix 40mg IV push x1 given by Dr Santana; Milronone drip is started today 2. Severe Sepsis/Septic shock - may be due to AICD lead Endocarditis vs UTI vs tooth abcess - plan for DIONNE on Tuesday when her condition is more stable 3. CMY with hx of AICD placement in 2019 - 4. 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 HTN - hypotensive; On Milronone drip 6. Trombocytopenia with Platelet 30s.? if this is due to sepsis or medications. 7. hx of substance abuse, clean for the last year. 8. Smoker - strongly recommend smoking cessation MAR reviewed * appreciate Dr Santana's input. Pt. seen and eval. by me. I agree with the A/P by the SOLUTION ADVISOR. i have discussed this pt. with Dr. Santana. Hematology and ID have been asked to assist in her care due to the thrombocytopenia and infective process. If she is stable, plan for DIONNE on Tuesday. Chest: bibasilar rales, RRR, no edema.
[2020-01-19 13:36] LABS: Reticulocyte Count 0.4 % (0.5-1.5)
[2020-01-19] MEDS ORDERED: Vancomycin HCl 750 MG in Sodium Chloride 0.9% 250 ML 250 ML IVPB SCH (16:00)
--- NOTE | 2020-01-19 16:01 | PRG ---
DATE OF SERVICE: 01/19/2020 SERVICE: Nephrology. SUBJECTIVE: A 39-year-old female seen in followup for NBA and hypernatremia. The patient with cardiomyopathy with EF of 15% to 20%, was admitted due to generalized body aches, weakness, and chest pain and found to have septic shock. Clinically improved. Complained of hunger. Still requiring intravenous inotropic agent. OBJECTIVE: VITAL SIGNS: Temperature 98.0, pulse 61, respiratory rate 16, SpO2 of 98% on room air, and blood pressure is 124/79. I and O in the last 24 hours showed total intake of 2285 with total output of 1900. GENERAL: Small-framed female in no distress. Afebrile. Anicteric. Acyanotic. HEENT: Normocephalic, atraumatic. Oral mucosa is moist. NECK: Supple with no obvious JVD. CARDIOVASCULAR: Regular rhythm and rate with normal heart sounds 1 and 2. RESPIRATORY: Fair air entry bilaterally with no obvious crackle or rhonchi or use of accessory muscles. GI: Full, soft, nontender, nondistended with normal bowel sounds. EXTREMITIES: Grossly normal looking, atraumatic with no edema or erythema. CONSTRUCTION DIRECTOR: Conscious, alert, and oriented x3 with appropriate mental status. Cranial nerves 2 through 12 are grossly intact. DIAGNOSTIC DATA: CBC showed WBC count of 8.7, hemoglobin of 10.1, and platelets of 32. Chemistry showed sodium 134, potassium 5.3, chloride 106, CO2 of 21, BUN 26, creatinine 1.03, glucose 115, calcium 8.0, magnesium 2.3, total bilirubin 0.4, AST 9, ALT 32, alkaline phosphatase 129, total protein 5.0, albumin 2.3, and globulin 2.7. ASSESSMENT: 1. Hyperkalemia: Mild: Most likely related to diet. Some contribution from metabolic acidosis cannot be ruled out. 2. Acute kidney injury: Due to hemodynamic factors related to cardiac decompensation and septic shock. Improving. Creatinine is down to 1.0 from above 2.0. 3. Hyponatremia: Due to decreased in effective intravascular space associated with appropriate ADH secretion. Some component of volume contraction was also contributory as the patient has poor oral intake and diarrhea prior to presentation. Levels are improving with improve oral intake and better hemodynamics. Sodium is 134 today. 4. Metabolic acidosis. Improving. 5. Volume status: The patient is euvolemic if not mildly dry. 6. Acute on chronic systolic heart failure, currently on Milrinone. 7. Chronic anemia. 8. Thrombocytopenia. 9. Shock: Improved/resolved. PLAN: 1. We will continue liberal solute intake. 2. We will continue alkali therapy with sodium bicarbonate. 3. Agree with treatment of Lasix to help with hyperkalemia. 4. We will recheck electrolytes and renal function in the morning. We will address electrolyte derangement if needed. Other treatment as per Cardiology and primary attending. Job ID: [id number]
[2020-01-19] MEDS ORDERED: Folic Acid 1 MG TAB PO SCH (17:00)
--- NOTE | 2020-01-19 18:08 | PDOC.HOSPP ---
- Subjective Encounter Date: 01/19/20 Encounter Time: 15:30 Subjective: Patient seen and examined for Sepsis. No CP or SOB. No new complaints. No overnight events - Objective Vital Signs & Weight: Vital Signs (12 hours) Temp Pulse Resp BP Pulse Ox 01/19/20 15:25 60 16 120/68 92 L 01/19/20 12:25 98.2 F 60 20 137/77 94 L 01/19/20 08:22 98 01/19/20 07:41 98.0 F 61 16 124/79 98 Weight Weight 112 lb Most Recent Monitor Data Heart Rate from ECG 60 NIBP 111/70 NIBP BP-Mean 83 Respiration from ECG 21 SpO2 100 I&O: 01/18/20 01/19/20 01/20/20 06:59 06:59 06:59 Intake Total 2280.4 2787 Output Total 500 1900 Balance 1780.4 887 Result Diagrams: 01/19/20 09:54 01/19/20 04:01 EKG Reviewed by me: Yes (Tele Paced) Hospitalist ROS - Review of Systems Respiratory: reports: SOB with excertion. denies: cough, dry, shortness of breath, hemoptysis, pleuritic pain, sputum, wheezing, other Cardiovascular: denies: chest pain, palpitations, orthopnea, paroxysmal noc. dyspnea, edema, light headedness, other - Medication Medications: Active Medications Generic Name Dose Route Start Last Admin Trade Name Freq PRN Reason Stop Dose Admin Acetaminophen 650 mg 01/16/20 10:05 01/16/20 12:32 Tylenol PO 650 mg Q4H PRN Administration Headache/Fever or Mild Pain Carvedilol 3.125 mg 01/18/20 08:00 01/19/20 08:23 Coreg PO 3.125 mg BID-WM ROSETTA Administration Famotidine 20 mg 01/18/20 09:00 01/19/20 08:22 Pepcid PO 20 mg DAILY ROSETTA Administration Milrinone Lactate/Dextrose 20 100 mls @ 1.82 mls/hr 01/19/20 10:30 01/19/20 10:18 mg/ Device IV 100 mls INF ROSETTA Administration Protocol 0.125 MCG/KG/MIN Morphine Sulfate 4 mg 01/16/20 16:45 01/19/20 16:34 Morphine SLOW IVP 4 mg Q4H PRN Administration Pain Prednisone 40 mg 01/18/20 17:00 01/19/20 08:23 Prednisone PO 40 mg BID-WM ROSETTA Administration Sodium Bicarbonate 650 mg 01/17/20 15:00 01/19/20 15:29 Bicarbonate, Sodium PO 650 mg TID ROSETTA Administration Sodium Chloride 10 ml 01/16/20 21:00 01/19/20 08:23 Flush - Normal Saline IVF 10 ml Q12HR ROSETTA Administration Tramadol HCl 50 mg 01/19/20 10:22 01/19/20 11:26 Ultram PO 50 mg Q12H PRN Administration Moderate Pain (4-6) - Exam General Appearance: NAD Neck: supple, no JVD Heart: RRR, no gallops Respiratory: no wheezes, no tachypnea Respiratory - other findings: few rhonchi Gastrointestinal: soft, non-tender, normal bowel sounds Extremities: no cyanosis, no clubbing Hosp A/P - Plan DVT proph w/SCDs Severe Sepsis/Septic shock prob due to AICD lead Endocarditis vs UTI Gen weakness/Myalgias with atypical CP 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
--- NOTE | 2020-01-19 22:51 | CON ---
DATE OF CONSULTATION: HISTORY OF PRESENT ILLNESS: This is a 39-year-old female who was admitted on January 15 with head and chest pain and hypotension. She was admitted to ICU where she required Levophed. Subsequently, she was transferred to the telemetry. The patient has a history of cardiomyopathy and is chronically hypertensive. She also has defibrillator and pacemaker. CBC at the time of admission showed WBCs 7000, hemoglobin 11.6 g, and platelet count of 64,000. Differential showed 75% neutrophils, 12% bands, 5% lymphocytes, and 8% monocytes. Her platelet counts have gradually declined to the most recent value of 32,000. It should be noted that the patient had a normal platelet count on previous several visits. The last platelet count available in [facility] is on May 21, 2019, when it was 300,000. The patient denies of bleeding. The patient has been afebrile during this hospitalization, though there is a mention of temperature around 99 prior to the current hospitalization. She has prior history of using methamphetamine. She is a current smoker and denies of any alcohol use. She denies any liver problems in the past. PAST MEDICAL AND SURGICAL HISTORY: As mentioned earlier. Additionally, a history of cardiac ablation x2 and defibrillation. OUTPATIENT MEDICATIONS: As per records include Entresto, Lasix, Coreg, aspirin, and Eliquis. Current medications: Tylenol, DuoNeb, carvedilol, dobutamine, Pepcid, Levaquin, milrinone, morphine, prednisone 40 mg b.i.d., and tramadol. The patient was on aspirin that has been discontinued. PHYSICAL EXAMINATION: GENERAL: The patient is alert and oriented. VITAL SIGNS: Temperature 98.2, pulse 60, O2 saturation 92%, respirations 16, blood pressure 120/68. HEENT: Unremarkable. CHEST: Clear to percussion and auscultation. HEART: S1, S2. ABDOMEN: Soft. SKIN: No purpuric spots. LABORATORY DATA: CBC as mentioned earlier. Chemistry profile shows normal BUN, creatinine, bilirubin, AST, and ALT. Alkaline phosphatase is slightly elevated at 129. Albumin 2.3. BNP 1659. TRINA negative. Protime 13.6, PTT 26.3. IMAGING STUDIES: Bilateral lower extremity Doppler study did not show any clots. Chest x-ray was negative. ASSESSMENT AND RECOMMENDATIONS: The cause of this patient's thrombocytopenia is not clear at this time. She was thrombocytopenic at the time of hospitalization. It is possible that it could be related to ongoing infection. Her B12 level is normal. Folic acid is low. For now, I am going to follow her with daily CBC and she has been started on folic acid. If the thrombocytopenia persists or gets worse, she might need With her platelet count of around 30,000, bleeding and she should not be given any platelet transfusions. Thanks very much for allowing me to participate in this patient's care. Job ID: [id number]
[2020-01-20] MEDS: Morphine 4 MG/ML VIAL SLOW IVP PRN ×2 (00:09→04:13)
[2020-01-20] MEDS: Sodium Bicarbonate Tab 325 MG TAB PO SCH ×3 (08:33→21:05)
[2020-01-20] MEDS: Folic Acid 1 MG TAB PO SCH (08:33)
[2020-01-20] MEDS: Famotidine 20 MG TAB PO SCH (08:33)
[2020-01-20] MEDS: Carvedilol 3.125 MG TAB PO SCH ×2 (08:34→17:15)
[2020-01-20] MEDS: predniSONE 20 MG TAB PO SCH ×2 (08:34→17:16)
--- NOTE | 2020-01-20 09:18 | ULT ---
ULTRASOUND ABDOMEN: Date: 01/20/2020 HISTORY: Spleen size and liver texture evaluation. FINDINGS: The liver demonstrates inhomogeneous echotexture without focal mass or intrahepatic ductal dilatation . No gallstones, gallbladder wall thickening, or pericholecystic fluid seen. Common duct measures 6.0 mm in diameter. Spleen is normal, measuring 10.6 cm in length. Kidneys, pancreas, and visualized po rtions of the IVC and aorta are unremarkable. There is a small amount of free fluid in the abdomen in Morison's pouch. Incidental note is made of a small left pleural effusion. IMPRESSION: 1. Hepatocellular disease. 2. No evidence of splenomegaly. 3. Small left pleural effusion and minimal ascites. POS: OFF
[2020-01-20 10:17] LABS: #Lymphocytes 1.3 thou/uL (1.20-3.40); #Monocytes 0.7 thou/uL (0.11-0.59); #Neutrophils 10.9 thou/uL (1.40-6.50); %Basophils 0.1 % (0.0-1.0); %Eosinophils 0.1 % (0.0-10.0); %Lymphocytes 9.8 % (21.0-51.0); %Monocytes 5.5 % (0.0-10.0); %Neutrophils 84.5 % (42.0-75.0); Hemoglobin 10.4 g/dL (12.0-16.0); Mean Corpuscular HGB CONC 31.8 g/dL (32.0-36.0); Mean Corpuscular Hemoglobin 30.6 pg (27.0-31.0); Mean Corpuscular Volume 96.1 fL (78.0-98.0); Mean Platelet Volume 10.7 fL (7.4-10.4); Platelet Count 62 thou/uL (130-400); Red Blood Cell (RBC) Count 3.41 mill/uL (4.20-5.40); White Blood Cell (WBC) Count 12.9 thou/uL (4.8-10.8)
[2020-01-20 10:33] LABS: Anion Gap 13 mmol/L (10-20); BUN (Urea Nitrogen) 26 mg/dL (7.0-18.7); Calc. Creatinine Clearance 66 mL/min (70-130); Carbon Dioxide 24 mmol/L (22-29); Chloride 101 mmol/L (98-107); Estimated GFR-MDRD 68; Glucose 130 mg/dL (70-105); Magnesium 2.1 mg/dL (1.6-2.6); Sodium 133 mmol/L (136-145)
[2020-01-20] MEDS ORDERED: Milrinone Lactate/D5W 20 MG in Premix Bag 1 BAG IV SCH (11:30)
[2020-01-20] MEDS ORDERED: Furosemide 40 MG TAB PO SCH (11:30)
--- NOTE | 2020-01-20 13:52 | PDOC.HOSPP ---
- Subjective Encounter Date: 01/20/20 Subjective: The patient was seen and examined. She had no new complaints today. Denies any pain or shortness of breath. She has been afebrile over the past 24 hours. Tolerating her diet and ambulating well. - Objective Vital Signs & Weight: Vital Signs (12 hours) Temp Pulse Resp BP BP Pulse Ox 01/20/20 12:00 98.2 F 61 16 179/98 H 100 01/20/20 07:29 98.0 F 64 16 154/83 H 97 01/20/20 03:53 97.8 F 63 18 134/74 97 Weight Weight 110 lb 8 oz Most Recent Monitor Data Heart Rate from ECG 60 NIBP 111/70 NIBP BP-Mean 83 Respiration from ECG 21 SpO2 100 I&O: 01/19/20 01/20/20 01/21/20 06:59 06:59 06:59 Intake Total 2787 1908 Output Total 1900 2100 Balance 887 -192 Result Diagrams: 01/20/20 10:05 01/20/20 10:05 Hospitalist ROS - Medication Medications: Active Medications Generic Name Dose Route Start Last Admin Trade Name Freq PRN Reason Stop Dose Admin Acetaminophen 650 mg 01/16/20 10:05 01/16/20 12:32 Tylenol PO 650 mg Q4H PRN Administration Headache/Fever or Mild Pain Carvedilol 3.125 mg 01/18/20 08:00 01/20/20 08:34 Coreg PO 3.125 mg BID-WM ROSETTA Administration Folic Acid 2 mg 01/20/20 09:00 01/20/20 08:33 Folvite PO 2 mg DAILY ROSETTA Administration Furosemide 40 mg 01/20/20 11:30 01/20/20 12:37 Lasix PO 01/20/20 14:00 40 mg NOW ROSETTA Administration Levofloxacin 750 mg 01/20/20 06:00 01/20/20 04:13 Levaquin PO 750 mg 0600 ROSETTA Administration Prednisone 40 mg 01/18/20 17:00 01/20/20 08:34 Prednisone PO 40 mg BID-WM ROSETTA Administration Sodium Bicarbonate 650 mg 01/17/20 15:00 01/20/20 08:33 Bicarbonate, Sodium PO 650 mg TID ROSETTA Administration Sodium Chloride 10 ml 01/16/20 21:00 01/20/20 08:32 Flush - Normal Saline IVF 10 ml Q12HR ROSETTA Administration - Exam General Appearance: awake alert ENT: normocephalic atraumatic Neck: supple Heart: RRR Respiratory: normal chest expansion, no tachypnea Gastrointestinal: soft Extremities: no cyanosis, no clubbing Neurological: cranial nerve grossly intact, no weakness Hosp A/P (1) Sepsis Code(s): A41.9 - SEPSIS, UNSPECIFIED ORGANISM Status: Acute (2) Chest pain Code(s): R07.9 - CHEST PAIN, UNSPECIFIED Status: Acute (3) UTI (urinary tract infection) Status: Acute (4) NBA (acute kidney injury) Code(s): N17.9 - ACUTE KIDNEY FAILURE, UNSPECIFIED Status: Acute (5) cardiomyopathy Code(s): O90.3 - PERIPARTUM CARDIOMYOPATHY Status: Chronic (6) Thrombocytopenia Code(s): D69.6 - THROMBOCYTOPENIA, UNSPECIFIED Status: Acute - Plan The patient appears to be clinically stable. She is afebrile and her blood cultures are negative so far. No signs of sepsis apart from mild leukocytosis which is likely related to recent corticosteroids. Thrombocytopenia which is likely due to sepsis versus vasculitis is improving with steroids. Her creatinine level is returning to baseline. No signs of CHF exacerbation. Check pro calcitonin, C-reactive protein, ESR, and ANCA screen.
--- NOTE | 2020-01-20 14:08 | CT ---
NONCONTRAST CT LEFT FEMUR: History: New onset left lower extremity pain. Patient denies history of trauma. Left inner thigh pain . Abscess/myonecrosis. FINDINGS: There is no evidence of a fracture/dislocation involving the left femur. No osseous destruction is se en. There is free fluid seen within the limitedly visualized pelvis. Subcutaneous edema is seen involving the left lateral gluteal region with subcutaneous edema also inv olving the left lower extremity. No fluid collection is seen to suggest abscess. Infection involving the left lower extremity cannot be entirely excluded. There does not appear to be obliteration of the fat plains involving the musculature of the visualized left lower extremity. Contrast was not admini stered for further evaluation. No joint effusion is appreciated. A tiny amount of fluid is seen at the level of the knee joint which may be physiologic in origin. IMPRESSION: 1. No acute osseous abnormality involving the left femur. 2. Diffuse subcutaneous edema left lower extremity. There is suggestion of minimal skin thickening me dially. Findings could be related to infectious process including cellulitis in the correct clinical scenario. 3. No fluid collection seen in the left lower extremity to suggest abscess formation. 4. Small amount of free fluid seen in the visualized left hemipelvis. 5. Mild increase in number of left inguinal lymph nodes which may be reactive in origin. POS: HUGH
[2020-01-20] MEDS: HYDROcodone/Acetaminophen 5/325 mg Tablet PO PRN ×2 (14:17→21:05)
--- NOTE | 2020-01-20 14:26 | PDOC.CPN ---
- Subjective Date: 01/20/20 Time: 14:29 Interval history: the pt seen and examined. No overnight events. No cardiac complaints. - Objective Allergies/Adverse Reactions: Allergies Allergy/AdvReac Type Severity Reaction Status Date / Time Penicillins Allergy Rash Verified 05/18/19 15:12 Visit Medications: Current Medications Acetaminophen (Tylenol) 650 mg PO Q4H PRN PRN Reason: Headache/Fever or Mild Pain Last Admin: 01/16/20 12:32 Dose: 650 mg Acetaminophen/Codeine Phosphate (Tylenol #3) 1 tab PO Q6H PRN PRN Reason: Moderate Pain (4-6) Hydrocodone Bitart/Acetaminophen ([place] 5/325) 1 tab PO Q6H PRN PRN Reason: Severe Pain (7-10) Last Admin: 01/20/20 14:17 Dose: 1 tab Albuterol/Ipratropium (Duoneb) 3 ml NEB [id number] PRN PRN Reason: SOB &/or Wheezing Carvedilol (Coreg) 3.125 mg PO BID-[facility] Last Admin: 01/20/20 08:34 Dose: 3.125 mg Folic Acid (Folvite) 2 mg PO DAILY [facility] Last Admin: 01/20/20 08:33 Dose: 2 mg Furosemide (Lasix) 40 mg PO DAILY [facility] Dobutamine HCl/Dextrose 500 mg (/ Device) 250 mls @ 3.39 mls/hr IVPB INF PRN; Protocol PRN Reason: SBP < 95 Milrinone Lactate/Dextrose 20 (mg/ Device) 100 mls @ 3.64 mls/hr IV INF ROSETTA; Protocol Levofloxacin (Levaquin) 750 mg PO 0600 [facility] Last Admin: 01/20/20 04:13 Dose: 750 mg Pantoprazole Sodium (Protonix) 40 mg PO DAILY [facility] Prednisone (Prednisone) 40 mg PO BID-[facility] Last Admin: 01/20/20 08:34 Dose: 40 mg Sodium Bicarbonate (Bicarbonate, Sodium) 650 mg PO TID [facility] Last Admin: 01/20/20 14:17 Dose: 650 mg Sodium Chloride (Flush - Normal Saline) 10 ml IVF Q12HR [facility]ET[facility] Last Admin: 01/20/20 08:32 Dose: 10 ml Sodium Chloride (Flush - Normal Saline) 10 ml IVF PRN PRN PRN Reason: Saline Flush Vital Signs & Weight: Vital Signs Temp Pulse Resp BP BP Pulse Ox 01/20/20 12:00 98.2 F 61 16 179/98 H 100 01/20/20 07:29 98.0 F 64 16 154/83 H 97 01/20/20 03:53 97.8 F 63 18 134/74 97 Weight 110 lb 8 oz - Physical Exam General: alert & oriented x3 HEENT: mucus membranes moist Neck: supple neck Cardiac: regular rate and rhythm, S1/S2 Lungs: clear to auscultation Extremities: no edema - Labs Result Diagrams: 01/20/20 10:05 01/20/20 10:05 Troponin/CKMB CK-MB (CK-2) 1.5 ng/mL (0-6.6) 01/16/20 02:20 Troponin I 0.158 ng/mL (< 0.028) H 01/16/20 09:33 - Telemetry Sinus rhythms and dysrhythmias: sinus rhythm - Assessment/Plan Assessment/Plan: 1. Acute on Chronic systolic HF with EF 15-20% - stable with RA; On Coreg, Lasix 40mg po daily, and Milronone drip; 2. Severe Sepsis/Septic shock - may be due to AICD lead Endocarditis vs UTI vs tooth abcess - plan for DIONNE on Tuesday 3. CMY with hx of AICD placement in 2019 - 4. 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 HTN - hypotensive; On Milronone drip 6. Trombocytopenia with Platelet 30s.? if this is due to sepsis or medications. Has improved today 7. hx of substance abuse, clean for the last year. 8. Smoker - strongly recommend smoking cessation MAR reviewed * appreciate Dr Santana's input. * Plan for DIONNE on Tuesday Pt. seen and eval. by me. I agree with the A/P by the [employer]IST[employer]. Oral surgery has visited with the pt. and does not feel that the teeth are the source of the infection and that tooth extraction is not indicated at this time. I will perform a DIONNE tomorrow to evaluate the AICD leads and the valves. If there is any vegetation noted then she may need referral to [facility] for lead extraction, temporary pacing and subsequent replacement of the leads after several weeks of antibiotics. She is pacemaker dependent. Chest clear. RRR, no edema today. talita
--- NOTE | 2020-01-20 15:22 | PRG ---
DATE OF SERVICE: 01/20/2020 This is an Advanced Heart Failure Cardiology Consulting Service. SUBJECTIVE: Ms. Valle had a better day with initiation of low-dose milrinone and IV Lasix being held. Her chest pressure pain has dissipated after that was started. She feels much better, breathing easier with that; however, she has continued left upper jaw pain. She said that her left upper thigh pain even though the redness has gone down, she believes her thigh pain has worsened. Her IV antibiotics of vancomycin and meropenem were stopped because of greatly drop in platelets. Levofloxacin was ordered. However, she did not get levofloxacin until this morning. REVIEW OF SYSTEMS: GENERAL: There is no fever, chills, or productive cough. HEENT: There is no change in vision, hearing, or swallowing. PULMONARY: See HPI. CARDIAC: Please see HPI. GI: She is able to eat well. : She is able to urinate well. She said put out a lot with Lasix yesterday. MUSCULOSKELETAL: She complains of being poked in her feet for blood draw because there is nowhere else that they can draw blood. INTEGUMENT: Please see HPI. NEUROLOGIC: There are no new focal deficits or weaknesses. CURRENT MEDICATIONS: 1. Carvedilol 3.125 mg twice per day. 2. Folic acid 2 mg daily. 3. Levofloxacin 750 mg daily. 4. Milrinone 0.125 mcg/kg per minute that should have been titrated up to 0.25 mcg/kg per minute. 5. Morphine 4 mg q.4 hours p.r.n. 6. Prednisone 40 mg twice a day. 7. Bicarb 650 t.i.d. 8. Tramadol 50 mg q.12 hours p.r.n. for moderate pain. PHYSICAL EXAMINATION: VITAL SIGNS: Heart rate 64; blood pressure 154/83, however, the prior one is 134/74, prior ones they were much lower so I am not sure about the accuracy of this one particular one measurement. GENERAL: She is alert and conversational, sitting up comfortably in bed after shower. She is appearing much more relaxed and not in pain in comparison to yesterday. HEENT: Show EOMI. Oropharynx shows there is a black spot in her left upper mandible region. It looks like abscess teeth. NECK: Her JVP is approximately 10 to 11 cm. LUNGS: Clear to auscultation bilaterally. Today improved from yesterday. CARDIAC: Regular rate and rhythm with 2/6 holosystolic murmur at the apex with a radiation to the left axilla. ABDOMEN: Soft, nontender. Positive bowel sounds. She still has an indurated spot in her left upper thigh. It is warm and she says it is painful to touch. EXTREMITIES: Her lower extremity without edema. Positive dorsalis pedis pulses bilaterally; however, there are needle poke spots from the blood draws. She said that is the only place they can draw blood. LABORATORY VALUES: Rebound white blood cell count of 12.9, hemoglobin of 10.4, and platelets had significantly increased to 62. Her chemistry shows sodium 133, potassium 5.0, bicarb at 24, BUN 26, creatinine 0.93, BNP has decreased from 1659 down to 786. More discussion took place about her living situation. [place] [address] [place] her parents' land. They have horses and cows. They also have dogs. She does have an outdoor cat. Her outdoor cat has scratched her. ASSESSMENT: A 39-year-old lady remains infected. Location of infection includes her left upper jaw. She has likely abscessed tooth. As mentioned before, 3 weeks of tooth abscess may have caused endocarditis, then caused embolic phenomenon. Second spot is her left upper thigh. Since cessation of the antibiotics, her white cell count increased. Hopefully with levofloxacin, it will be effective today the white cell count and pain should go back down. She will need a transesophageal echocardiogram to look at her leads and her valves. Very possible that she has endocarditis. She will need support for her biventricular failure. Please see the following for recommendations. RECOMMENDATIONS: 1. Increase milrinone to 0.25 mcg/kg per minute as planned. 2. Resume her home dose of Lasix 40 mg p.o. daily, first dose today. 3. Please place PICC. She will need this for long-term infusion access if needed. She also need this for blood draw. She has difficulties finding her veins. 4. Please consider transesophageal echocardiogram tomorrow to look for endocarditis. 5. Please consult Oral Surgery for her teeth extraction. If at all possible, please do a different type of imaging that would look at her left leg. 6. Her platelet has rebound. We will follow this closely, it may be a reaction to antibiotics since changing her antibiotics has caused doubling her platelets in one day. The culprits include vancomycin or meropenem. However, she would need antibiotic coverage for her infection. 7. Due to family medical urgency, I will not be able to return tomorrow or throughout the next week. It has been a pleasure taking care of Ms. Valle. If you have any questions, I can still be reached by phone. Job ID: [id number]
--- NOTE | 2020-01-20 17:03 | PRG ---
DATE OF SERVICE: 01/20/2020 SUBJECTIVE: Feeling a little better. Still with pain in the medial left thigh , but not as much as before. No vomiting. No back pain. No cough. No chest pain. Continues to be afebrile. OBJECTIVE: VITAL SIGNS: BP 170/98, pulse 61, respirations 16, and O2 saturation 100. GENERAL: Appears in no distress. SKIN: The left thigh area has improved markedly. There is much less induration. There is just a little bit of dermal petechiae in the area. All that area of bruising has reabsorbed. She has this erythema in the fingers and toes, mostly in the knuckle skin. Those areas are not tender. No lymphadenopathy. HEENT: Ocular movements conjugate. Conjunctivae normal. Oral cavity unremarkable. NECK: Supple. LUNGS: Symmetric with clear breath sounds. HEART: There is a soft at least 2/6 murmur at the aortic area, question diastolic murmur as well. Regular rate. ABDOMEN: Soft, not distended or tender. No ascites. No bladder distention. LABORATORY DATA: White cell count is at 12.9, hemoglobin 10.4, and platelets 62. Positive DIC screen. Elevated D-dimer. FDP is a greater than 5, less than 20. BNP was 786, folate 3.30. Blood cultures, no growth at [address] was nonspecific findings, some stranding in the subcutaneous area. ASSESSMENT AND DISCUSSION: 1. History of methamphetamine use, IV, in the past. 2. cardiomyopathy. 3. Automatic implantable cardioverter-defibrillator in place. 4. Cardiac ablations. 5. Fever. 6. Abnormal echo with possible automatic implantable cardioverter-defibrillator lead vegetation. 7. Nodular lesion of purpura. 8. Pevidence of disseminated intravascular coagulation. 9. Thrombocytopenia. DISCUSSION: Again, differential diagnosis includes endocarditis with embolic phenomena, DIC. An inflammatory non-infectious process such as vasculitis is not yet ruled out. Blood culture thus far negative. Types of organisms involved less likely to be Staphylococcus aureus since we would expect positive results of culture, maybe organisms that are more nutritionally demanding with decreased yield and routine blood cultures. May need to do next generation sequencing test, but further management will heavily depend on the results of the DIONNE to be done tomorrow. Job ID: [id number] [facility]
--- NOTE | 2020-01-21 01:26 | CON ---
DATE OF CONSULTATION: The patient's CBC today showed, platelet count improving to 62,000. WBC was 12,900 and hemoglobin was 10.4. Retic count was 0.4%. B12 is normal at 462 and folic acid is low at 3.30. The improvement in the platelet count may indicate that thrombocytopenia was likely related to her acute illness. She has been started on folic acid 2 mg p.o. daily. She should go home on folic acid 1 mg daily that she should take indefinitely. Job ID: [id number]
[2020-01-21 04:29] LABS: #Lymphocytes 0.8 thou/uL (1.20-3.40); #Monocytes 0.7 thou/uL (0.11-0.59); #Neutrophils 9.3 thou/uL (1.40-6.50); %Basophils 0.3 % (0.0-1.0); %Eosinophils 0.3 % (0.0-10.0); %Monocytes 6.6 % (0.0-10.0); %Neutrophils 85.9 % (42.0-75.0); Mean Corpuscular HGB CONC 32.2 g/dL (32.0-36.0); Mean Corpuscular Hemoglobin 30.7 pg (27.0-31.0); Mean Corpuscular Volume 95.4 fL (78.0-98.0); Mean Platelet Volume 9.9 fL (7.4-10.4); Platelet Count 100 thou/uL (130-400); RBC Distribution Width 12.9 % (11.5-14.5); Red Blood Cell (RBC) Count 3.27 mill/uL (4.20-5.40); White Blood Cell (WBC) Count 10.8 thou/uL (4.8-10.8)
[2020-01-21 04:49] LABS: Anion Gap 14 mmol/L (10-20); BUN (Urea Nitrogen) 28 mg/dL (7.0-18.7); Calc. Creatinine Clearance 49 mL/min (70-130); Calcium 7.9 mg/dL (7.8-10.44); Carbon Dioxide 25 mmol/L (22-29); Chloride 100 mmol/L (98-107); Estimated GFR-MDRD 47; Glucose 143 mg/dL (70-105); Magnesium 2.1 mg/dL (1.6-2.6); Potassium 4.8 mmol/L (3.5-5.1); Sodium 134 mmol/L (136-145)
[2020-01-21] MEDS: HYDROcodone/Acetaminophen 5/325 mg Tablet PO PRN ×2 (07:43→19:47)
[2020-01-21] MEDS: Carvedilol 3.125 MG TAB PO SCH ×2 (07:43→17:46)
[2020-01-21] MEDS ORDERED: EPINEPHrine 1 MG/ML AMP ONE (08:57)
[2020-01-21] MEDS ORDERED: Midazolam HCl 2 mg/2 ml Vial ONE (08:58)
[2020-01-21] MEDS ORDERED: Ketamine 50 MG/ML (10ML VIAL) ONE (08:58)
[2020-01-21] MEDS ORDERED: Benzocaine 20% Spray 60 ML CAN ONE ×2 (09:02→09:55)
[2020-01-21] MEDS ORDERED: PROPOFOL 200 MG/20 ML VIAL ONE (11:34)
[2020-01-21] MEDS: predniSONE 20 MG TAB PO SCH ×2 (11:51→17:46)
[2020-01-21] MEDS: Folic Acid 1 MG TAB PO SCH (11:52)
[2020-01-21] MEDS: Furosemide 40 MG TAB PO SCH (11:52)
[2020-01-21] MEDS ORDERED: Milrinone Lactate/D5W 20 MG in Premix Bag 1 BAG IV SCH (12:55)
[2020-01-21 15:37] LABS: Heparin-Induced Ab (HITA) 0.163 OD (0.000-0.400)
--- NOTE | 2020-01-21 19:54 | DIS ---
DATE OF ADMISSION: 01/16/2020 DATE OF DISCHARGE: 01/22/2020 DISCHARGE MEDICATIONS: 1. Aspirin 81 mg daily. 2. Carvedilol 3.125 mg b.i.d. 3. Folic acid 2 mg daily. 4. Lasix 40 mg daily. 5. Levaquin 750 mg daily. 6. Protonix 40 mg daily. 7. Prednisone 40 mg daily to be tapered. 8. Entresto to be to be restarted once the renal function improves. 9. The patient can be restarted on Eliquis once okay with Cardiology. DISCHARGE DISPOSITION: [facility] for higher level of care. The patient was seen and examined on the day of discharge. Denies any new complaints. Vital signs showed temperature 99.4 with pulse rate of 62, respirations of 16, blood pressure of 119/66, O2 saturation 97% on room air. In general, patient in no apparent distress. Lungs were clear to auscultation bilaterally. Heart; S1, S2 present. Abdomen was soft. Extremities, no calf tenderness. BRIEF HOSPITAL COURSE: The patient is a 39-year-old female with cardiomyopathy status post AICD, presented to the emergency room with chest discomfort. She was found to have hypotension with blood pressure in 60s in the emergency room. She was started on IV fluid boluses and was admitted to the intermediate Care Unit. Due to persistent hypotension, a central line was placed. She was transferred to the intensive care unit. She was started on ceftriaxone in the emergency room for possible UTI. However, no cultures was sent prior to antibiotic. Due to persistent hypotension, the blood cultures were obtained later. Her blood pressure stabilized with pressors and stress dose of steroid. An echocardiogram was obtained that showed possible endocarditis with ejection fraction of 15% to 20%. Later on, she was transferred to the telemetry unit. CT soft tissue of the neck with IV contrast showed dental and periodental disease along with lymphadenopathy. COVID testing was negative. Earlier today, she underwent transesophageal echocardiogram that was consistent with tricuspid valve AICD lead endocarditis. She will be transferred to [facility] for higher level of care. Eliquis is currently on hold due to significant thrombocytopenia. Platelet dropped to 29. Earlier today, the platelet has improved to 100. She was evaluated by Infectious Disease as well. The patient was also placed on Milrinone drip during this hospitalization. FINAL DIAGNOSES: 1. Severe sepsis/septic shock secondary to tricuspid valve/AICD lead endocarditis. 2. Dental abscess. 3. Acute on chronic systolic heart failure with ejection fraction 15% to 20%, improved. 4. cardiomyopathy, status post AICD placement in 2019. 5. Acute kidney injury on chronic kidney disease, stage 2. 6. Thrombocytopenia probably due to sepsis, improving. 7. Folic acid deficiency. 8. History of polysubstance abuse. The patient has been clean for 1 year. 9. Ongoing tobacco abuse. The patient was extensively counseled. 10. Type 2 myocardial infarction present on admission. 11. Generalized weakness, myalgia with atypical chest pain on admission, multifactorial. TIME SPENT: Time coordinating the discharge of this patient was 39 minutes. ADDENDUM: Please refer to the discharge summary dated January 21, 2020. The patient will be leaving today since there is a bed available at [facility]. Vital signs on the day of discharge are temperature 98.1, pulse of 66, respirations of 14, blood pressure of 136/71, O2 saturation 98% on room air. The patient was seen and examined today. Please refer to my progress note for details. Please refer to the discharge summary for final diagnoses. Job ID: [id number]
--- NOTE | 2020-01-22 01:43 | CON ---
DATE OF CONSULTATION: REASON FOR CONSULTATION: Possible bacterial endocarditis secondary to Staph decayed teeth. CHIEF COMPLAINT: Chest pain and hypotension. HISTORY OF PRESENT ILLNESS: This is a 39-year-old female who presents to the ER on 01/16/2020, for chest pain, shortness of breath, and hypotension. She was also noted to have elevated troponins. The patient has no history of dental pain, dental swelling, jaw pain, or jaw swelling. PAST MEDICAL HISTORY: cardiomyopathy, congestive heart failure, hypotension, bradycardia, cardiac pacemaker placement, scoliosis. PAST SURGICAL HISTORY: History of pacemaker placement, AICD placement, C- section x2, cardiac ablation x2. SOCIAL HISTORY: The patient denies current alcohol use. Used to use heavy methamphetamines in the past. She still smokes cigarettes. FAMILY HISTORY: Noncontributory. ALLERGIC: She is allergic to penicillin. MEDICATIONS: Listed in EMR. PHYSICAL EXAMINATION: GENERAL: The patient is awake, alert, and oriented x3. She is in no acute distress. HEENT: She has no facial swelling. No facial pain. No tenderness to palpation of her face. No fluctuance in the mandibular or maxillary vestibules. Floor of mouth is soft and supple. There is no submandibular swelling. Oropharynx is clear. There is no uvular deviation. Her occlusion is good. She does have extensive periodontal disease as well as dental caries on the most posterior teeth. She has abundant plaque and calculus accumulation. DIAGNOSTIC DATA: CT scan of the face shows multiple decayed teeth, multiple periapical lesions, generalized periodontal disease, and bone loss. ASSESSMENT: A 39-year-old female with possible defibrillator lead, vegetation, and valvular vegetation with possible endocarditis, possibly bacterial in origin. Source of infection is unclear. However, the patient does have multiple decayed teeth and necrotic teeth, which could be a source of chronic bacteremia. However, blood cultures have been negative. The patient is being transferred to [place] for removal of vegetations in the AICD leads. I would recommend removal of necrotic teeth and decayed teeth as soon as patient is stable enough for surgery. Job ID: [id number] [facility]
[2020-01-22] MEDS: HYDROcodone/Acetaminophen 5/325 mg Tablet PO PRN ×3 (02:08→18:17)
[2020-01-22 04:57] LABS: Anion Gap 15 mmol/L (10-20); BUN (Urea Nitrogen) 23 mg/dL (7.0-18.7); Calc. Creatinine Clearance 63 mL/min (70-130); Calcium 7.7 mg/dL (7.8-10.44); Carbon Dioxide 26 mmol/L (22-29); Chloride 102 mmol/L (98-107); Estimated GFR-MDRD 62; Glucose 136 mg/dL (70-105); Magnesium 2.1 mg/dL (1.6-2.6); Potassium 4.5 mmol/L (3.5-5.1); Sodium 138 mmol/L (136-145)
[2020-01-22 05:17] LABS: Band 7 % (5-11); Hemoglobin 10.8 g/dL (12.0-16.0); Lymphocytes 8 % (21-51); MDiff Complete? YES; Mean Corpuscular HGB CONC 32.9 g/dL (32.0-36.0); Mean Corpuscular Hemoglobin 31.1 pg (27.0-31.0); Mean Corpuscular Volume 94.5 fL (78.0-98.0); Mean Platelet Volume 9.4 fL (7.4-10.4); Monocytes 3 % (0-10); Neutrophil 82 % (42-75); Platelet Count 143 thou/uL (130-400); Platelet Morphology Comment Appears Adequate; RBC Distribution Width 13.2 % (11.5-14.5); Red Blood Cell (RBC) Count 3.49 mill/uL (4.20-5.40); White Blood Cell (WBC) Count 12.2 thou/uL (4.8-10.8)
[2020-01-22] MEDS: Furosemide 40 MG TAB PO SCH (08:39)
[2020-01-22] MEDS: Carvedilol 3.125 MG TAB PO SCH ×2 (08:39→16:59)
[2020-01-22] MEDS: predniSONE 20 MG TAB PO SCH ×2 (08:39→16:59)
[2020-01-22] MEDS: Folic Acid 1 MG TAB PO SCH (08:39)
--- NOTE | 2020-01-22 09:04 | PRG ---
DATE OF SERVICE: 01/22/2020 SERVICE: Nephrology. SUBJECTIVE: A 39-year-old female, seen in followup for NBA and hyponatremia. The patient was admitted due to septic shock. Clinically improved. Denied shortness of breath, leg swelling, nausea, or vomiting. Desires to be discharged. OBJECTIVE: VITAL SIGNS: Temperature 99.3, pulse 68, respiratory rate 18, SpO2% on 100 on room air, and blood pressure is 143/66. I and O in the last 24 hours showed total intake of 780 with total output of 2440. GENERAL: Small-framed middle aged young female, in no distress. Afebrile. Anicteric. Acyanotic. HEENT: Normocephalic and atraumatic. Oral mucosa is moist. CARDIOVASCULAR: Regular rhythm and rate with normal heart sounds one and two. RESPIRATORY: Good air entry bilaterally with no obvious crackle or rhonchi or use of accessory muscles. GI: Full, soft, nontender, and nondistended with normal bowel sounds. EXTREMITIES: Grossly normal looking atraumatic with no edema or erythema. 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 Cranial nerves 2 through 12 are grossly intact. DIAGNOSTIC DATA: CBC showed WBC count of 12.2, hemoglobin of 10.8, platelet of 143. Chemistry showed sodium 138, potassium 4.5, chloride 102, CO2 of 22, BUN 23, creatinine 1.0, glucose 136, calcium 7.7, and magnesium 2.1. ASSESSMENT: 1. Acute kidney injury: Due to hemodynamic factors related to volume contraction and septic shock. Improved with IV fluid and optimization of hemodynamics. Creatinine is down to 1.0, which is baseline. 2. Hyponatremia: Due to volume contraction and shock with appropriate ADH secretion. Some contribution from congestive heart failure is also . The patient received normal saline initially, but later on fluid restriction with resolution. Sodium today is 138. 3. Hypocalcemia: Vitamin D deficiency is a concern. PLAN: 1. We will get vitamin D level. 2. If low, we will start supplementation. 3. Continue fluid restriction. Further treatment as per Cardiology team. 4. The patient can be discharged from Nephrology point of view. She will need to follow up with primary care physician. Please call for any clarification or questions. Job ID: [id number]
[2020-01-22] MEDS ORDERED: Iopamidol 300 61% 50 ML VIAL FS ONE (09:08)
[2020-01-22 10:14] LABS: A/G Ratio 0.7 (0.7-1.7); Alpha 1 0.3 g/dL (0.0-0.4); Alpha 2 0.9 g/dL (0.4-1.0); Beta 0.8 g/dL (0.7-1.3); Gamma 0.7 g/dL (0.4-1.8); Globulin, Total 2.7 g/dL (2.2-3.9); M-Spike Not Observed g/dL (Not Observed)
--- NOTE | 2020-01-22 12:09 | SPC ---
Attempted bilateral upper extremity PICC placement HISTORY: Endocarditis. Patient needs long-term IV antibiotics. FINDINGS: Informed consent obtained prior to the procedure. The right upper extremity was meticulously prepped and draped in usual sterile fashion. Limited sonog raphic evaluation of the right upper extremity was performed which demonstrates decreased lumen compressibility and echogenic material within the right basilic vein consistent with occlusive thromb us in the right basilic vein. Very small paired brachial veins are seen on the right. After the skin and subcutaneous tissues were infiltrated with buffered 1% lidocaine for local anesthesia, the m ore lateral paired right brachial vein was accessed utilizing micropuncture technique, and a 5 Swiss peel-away sheath was placed. Catheter was placed over the guidewire, but the catheter was unab le to be advanced to the level of the axillary vein. In addition, the patient experienced discomfort at the access site. As result, the catheter was removed, and hemostasis was achieved with direct pressure. Sonographic evaluation of the right upper extremity cephalic vein demonstrates patency of the cephalic vein. However, the cephalic vein is small in caliber. The cephalic vein was a ccessed utilizing micropuncture technique, a 5 Swiss peel-away sheath was placed. Attempts at placement of a catheter were unsuccessful, and again the catheter was unable to be advanced to the le kiran of the axillary vein. A cephalic venogram was performed demonstrating significant atretic appearance of the cephalic vein. The left upper extremity was then meticulously prepped and draped in usual sterile fashion. A left ba silic vein was identified, but the basilic vein bifurcated at the level of the proximal arm into very small atretic appearing veins. The left brachial vein demonstrated patency on sonographic evalua tion, and as a result skin and subcutaneous tissues overlying the intended puncture site were infiltrated with buffered 1% lidocaine for local anesthesia. Left brachial vein was accessed utilizin g micropuncture technique. Guidewire was advanced, and the guidewire was unable to be advanced to the level of the axillary vein, and only a very small portion of the guidewire was able to be advance d in the brachial vein. At this time, the procedure was terminated. Findings were discussed with Dr. Santana at this time. Exposure data: 4.7 minutes of fluoroscopic time 7312 mGy centimeter squared IMPRESSION: 1. Unsuccessful attempt at placement of a PICC line in the bilateral upper extremities. 2. Occlusion of the right basilic vein with very small caliber of the additional visualized venous st ructures in the bilateral upper extremities. Although veins in each upper extremity were able to be accessed, a catheter was unable to be advanced to the level of the axillary vein due to very small ca liber of the vessels.
[2020-01-22] MEDS ORDERED: cefTRIAXone\\ROCEPHIN 2 GM in Sodium Chloride 0.9% 100 ML IVPB SCH (14:00)
[2020-01-22 14:51] LABS: ANA Symphony (Qualitative) Negative (Negative); ANA Symphony (Quantitative) 0.2 Ratio (< 0.7 Negative); EliA RAS New Method **** NEW METHOD ****; Rheumatoid Factor IgA Antibody 1.9 IU/mL (<14 Negative); dsDNA IgG Antibody 0.8 IU/mL (<10 Negative)
[2020-01-22] MEDS ORDERED: DAPTOmycin 500 MG in Sodium Chloride 0.9% 100 ML IVPB SCH (15:00)
--- NOTE | 2020-01-22 16:10 | PRG ---
DATE OF SERVICE: 01/22/2020 SUBJECTIVE: Ms. Valle had a DIONNE, which demonstrated a large vegetation in the tricuspid valve. The patient is going to be transferred to [place] to remove the AICD and leads. The patient is having some issues with her social security , but she denies any chest pain. No abdominal pain or diarrhea. OBJECTIVE: VITAL SIGNS: She continues to be afebrile. CARDIAC: S1 and S2. Regular rate with a soft aortic murmur. ABDOMEN: Soft. LABORATORY DATA: White cell count 12.2, hemoglobin 10.8, platelets 143 with 82% neutrophils. Creatinine 1.0. BNP . Blood cultures, no growth at 5 days. ASSESSMENT AND DISCUSSION: History of methamphetamine use via IV route in the past, cardiomyopathy, automatic implantable cardioverter-defibrillator in place, fever with abnormal echocardiogram with evidence of large vegetation in the tricuspid valve, probably secondary to embolic lesions and disseminated intravascular coagulation with thrombocytopenia, which seems to be improving. The microbiology involving culture-negative endocarditis is quite broad, and we will submit a Karius test to see if we can identify the culprit. In the meantime, add daptomycin and Rocephin to the levofloxacin. The patient is being transferred for removal of the device in [place]. Job ID: [id number] MTDD
[2020-01-22 17:04] VITALS: BP 136/71; TEMP 98.1
--- NOTE | 2020-01-22 17:05 | PDOC.CPN ---
- Subjective Date: 01/22/20 Time: 09:11 Interval history: The pt seen and examined. No overnight events. No cardiac complaints - Objective Allergies/Adverse Reactions: Allergies Allergy/AdvReac Type Severity Reaction Status Date / Time Penicillins Allergy Rash Verified 05/18/19 15:12 Visit Medications: Current Medications Acetaminophen (Tylenol) 650 mg PO Q4H PRN PRN Reason: Headache/Fever or Mild Pain Last Admin: 01/16/20 12:32 Dose: 650 mg Acetaminophen/Codeine Phosphate (Tylenol #3) 1 tab PO Q6H PRN PRN Reason: Moderate Pain (4-6) Hydrocodone Bitart/Acetaminophen ([place] 5/325) 1 tab PO Q6H PRN PRN Reason: Severe Pain (7-10) Last Admin: 01/22/20 10:41 Dose: 1 tab Albuterol/Ipratropium (Duoneb) 3 ml NEB [id number] PRN PRN Reason: SOB &/or Wheezing Carvedilol (Coreg) 3.125 mg PO BID-[facility] Last Admin: 01/22/20 16:59 Dose: 3.125 mg Folic Acid (Folvite) 2 mg PO DAILY COUNT INCLUDES THE [facility] Last Admin: 01/22/20 08:39 Dose: 2 mg Furosemide (Lasix) 40 mg PO DAILY COUNT INCLUDES THE [facility] Last Admin: 01/22/20 08:39 Dose: 40 mg Ceftriaxone Sodium 2 gm/ (Sodium Chloride) 100 mls @ 200 mls/hr IVPB 1400 COUNT INCLUDES THE [facility] Last Admin: 01/22/20 15:16 Dose: 100 mls Daptomycin 500 mg/ Sodium (Chloride) 100 mls @ 200 mls/hr IVPB 1500 COUNT INCLUDES THE [facility] Levofloxacin (Levaquin) 750 mg PO 0600 COUNT INCLUDES THE [facility] Last Admin: 01/22/20 06:17 Dose: 750 mg Pantoprazole Sodium (Protonix) 40 mg PO DAILY COUNT INCLUDES THE [facility] Last Admin: 01/22/20 08:39 Dose: 40 mg Prednisone (Prednisone) 40 mg PO BID-[facility] Last Admin: 01/22/20 16:59 Dose: 40 mg Sodium Chloride (Flush - Normal Saline) 10 ml IVF Q12HR COUNT INCLUDES THE [facility] Last Admin: 01/22/20 08:40 Dose: 10 ml Sodium Chloride (Flush - Normal Saline) 10 ml IVF PRN PRN PRN Reason: Saline Flush Vital Signs & Weight: Vital Signs Temp Pulse Resp BP BP Pulse Ox 01/22/20 16:50 98.1 F 66 14 136/71 98 01/22/20 13:24 127/71 01/22/20 10:41 98.6 F 69 12 183/92 H 100 01/22/20 08:34 98.3 F 61 16 180/87 H 99 Weight 106 lb 4.8 oz - Physical Exam General: alert & oriented x3 HEENT: mucus membranes moist Neck: supple neck Cardiac: regular rate and rhythm, S1/S2 Lungs: clear to auscultation Neuro: cranial nerve 2-12 intact Abdomen: unremarkable Extremities: no edema - Labs Result Diagrams: 01/22/20 03:58 01/22/20 03:58 Troponin/CKMB CK-MB (CK-2) 1.5 ng/mL (0-6.6) 01/16/20 02:20 Troponin I 0.158 ng/mL (< 0.028) H 01/16/20 09:33 - Telemetry Sinus rhythms and dysrhythmias: other (AV paced) - Assessment/Plan Assessment/Plan: 1. Acute on Chronic systolic HF with EF 15-20% on admission - improved to > 55- 60% on DIONNE. Likely was decreased due to sepsis. On Coreg, Lasix 40mg po daily; Milronone drip is off; 2. Severe Sepsis/Septic shock . Large vegetation on tricuspid valve or AICD leads.Likely due to dental disease. She has associated embolic lesions ; Plan to tx to [facility] in [place], [place] 3. CMY with hx of AICD placement in 2019 - 4. 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 HTN - stable 6. Trombocytopenia possible due to sepsis or medications - improved 7. hx of substance abuse, clean for the last year. 8. Smoker - strongly recommend smoking cessation MAR reviewed * appreciate Dr Santana's input. Pt. seen and eval. by me. I agree with the A/P by the [employer] LE[employer]. She will be transferred to [place] for lead and device removal. 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 She seems to have culture negative endocarditis thus far. dr. Strauss will request special studies to see if the organism can be identified. Chest clear. RRR, pacing. No edema. Left thigh lesion improved.
--- NOTE | 2020-01-22 17:14 | PDOC.HOSPP ---
- Subjective Encounter Date: 01/22/20 Encounter Time: 15:00 Subjective: Patient seen and examined for Sepsis/Endocarditis. No new complaints. No overnight events - Objective Vital Signs & Weight: Vital Signs (12 hours) Temp Pulse Resp BP BP Pulse Ox 01/22/20 16:50 98.1 F 66 14 136/71 98 01/22/20 13:24 127/71 01/22/20 10:41 98.6 F 69 12 183/92 H 100 01/22/20 08:34 98.3 F 61 16 180/87 H 99 Weight Weight 106 lb 4.8 oz Most Recent Monitor Data Heart Rate from ECG 60 NIBP 111/70 NIBP BP-Mean 83 Respiration from ECG 21 SpO2 100 I&O: 01/21/20 01/22/20 01/23/20 06:59 06:59 06:59 Intake Total 670 780 Output Total 900 2400 Balance -230 -1620 Result Diagrams: 01/22/20 03:58 01/22/20 03:58 EKG Reviewed by me: Yes (Tele paced) Hospitalist ROS - Review of Systems Respiratory: denies: cough, dry, shortness of breath, hemoptysis, SOB with excertion, pleuritic pain, sputum, wheezing, other Cardiovascular: denies: chest pain, palpitations, orthopnea, paroxysmal noc. dyspnea, edema, light headedness, other - Medication Medications: Active Medications Generic Name Dose Route Start Last Admin Trade Name Freq PRN Reason Stop Dose Admin Acetaminophen 650 mg 01/16/20 10:05 01/16/20 12:32 Tylenol PO 650 mg Q4H PRN Administration Headache/Fever or Mild Pain Hydrocodone Bitart/Acetaminophen 1 tab 01/20/20 13:43 01/22/20 10:41 [place] 5/325 PO 1 tab Q6H PRN Administration Severe Pain (7-10) Carvedilol 3.125 mg 01/18/20 08:00 01/22/20 16:59 Coreg PO 3.125 mg BID-WM ROSETTA Administration Folic Acid 2 mg 01/20/20 09:00 01/22/20 08:39 Folvite PO 2 mg DAILY ROSETTA Administration Furosemide 40 mg 01/21/20 09:00 01/22/20 08:39 Lasix PO 40 mg DAILY ROSETTA Administration Ceftriaxone Sodium 2 gm/ 100 mls @ 200 mls/hr 01/22/20 14:00 01/22/20 15:16 Sodium Chloride IVPB 100 mls 1400 ROSETTA Administration Levofloxacin 750 mg 01/20/20 06:00 01/22/20 06:17 Levaquin PO 750 mg 0600 ROSETTA Administration Pantoprazole Sodium 40 mg 01/21/20 09:00 01/22/20 08:39 Protonix PO 40 mg DAILY ROSETTA Administration Prednisone 40 mg 01/18/20 17:00 01/22/20 16:59 Prednisone PO 40 mg BID-WM ROSETTA Administration Sodium Chloride 10 ml 01/16/20 21:00 01/22/20 08:40 Flush - Normal Saline IVF 10 ml Q12HR ROSETTA Administration - Exam General Appearance: NAD Neck: supple, no JVD Heart: RRR, no gallops Respiratory: no wheezes, no ronchi Gastrointestinal: non-tender, non-distended Extremities: no cyanosis Hosp A/P - Plan DVT proph w/SCDs Severe Sepsis/Septic shock prob due to AICD lead Endocarditis Gen weakness/Myalgias with atypical CP NBA on CKD 2/ Hyperkalemia Metabolic Acidosis/Lactic acidosis due to #1 Chronic systolic HF - now EF 15-20% Type 2 CT h/o HTN Hyponatremia h/o CM Tob dep Thrombocytopenia - prob due to Sepsis Periodontal disease PLAN: Cont Ceftriaxone/Daptomycin Wean Prednisone Await bed at [facility] PICC line attempted today - unsuccessful Not on Lovenox due to thrombocytopenia AM labs
[2020-01-22 17:38] LABS: EliA RAS New Method **** NEW METHOD ****; Rheumatoid Factor IgA Antibody 1.8 IU/mL (<14 Negative)
[2020-01-22 17:39] LABS: EliA RAS New Method **** NEW METHOD ****; Rheumatoid Factor IgM Antibody 1.4 IU/mL (<3.5 Negative)
[2020-01-23] MEDS ORDERED: predniSONE 20 MG TAB PO SCH (08:00)
--- NOTE | 2020-01-25 09:38 | PQF ---
GUNNER CERVANTES MALIK MD [id number] [facility]-279 [id number] CLINICAL DOCUMENTATION CLARIFICATION FORM: POST DISCHARGE Addendum to original discharge summary date: ____ Late entry note date: __ DATE: 01/25/2020 ATTN:Sheldon Peralta Please exercise your independent, professional judgment in responding to the clarification form. Clinical indicators are provided on the bottom of this form for your review. Can you please specify the diagnosis occasioning inpatient admission? Please check appropriate box(s): [ x ] Septic shock Please specify etiology UTI Dental abscess AICD lead infection [ ] Chest pain Please specify etiology cardiomyopathy AICD lead infection [ ] Other diagnosis [ ] Unable to determine For continuity of documentation, please document condition throughout progress notes and discharge summary. Thank You. CLINICAL INDICATORS - SIGNS / SYMPTOMS / LABS HP 01/15 "CC:Chest pain" HP 01/15 "ACS? the patient having chest pain and elevated troponin" HP 01/15 "NBA" Consult 01/15 "this could indicate some drug seeking behavior" Consult 01/15 "new onset of fever,,chest pain.....hypotension and sepsis syndrome" Consult 01/15 "metabolic acidosis" Physician query "severe sepsis present on admission" PN 01/21 "severe sepsis/septic shock likely due to dental disease" DS 01/21 "severe sepsis/septic shock secondary to tricuspid valve/AICD lead endocarditis" Labs WBC: 01/16=13.1 01/19=12.9 01/21=12.2 RISK FACTORS cardiomyopathy-HP 01/15 CHF-HP 01/15 Substance abuse-HP 01/15 Smoker-HP 01/15 UTI-HP 01/15 CKD stage 2-PN 01/21 Dental abscess-PN 01/21 MO-DS 01/21 TREATMENTS: PICC line insertion-OP Note 01/15 DIONNE-Collected 01/21 Rocephin 1gm IV-MAR /27 Levophed 250ml IV-OCT 24 Vancomycin 1gm IV-OCT 24 Merrem 1gm IV-OCT 24 Daptomycin 500mgIV-OCT 25 AICD interrogation- 01/19 (This form is maintained as a part of the permanent medical record) 2014 [email or web address]. All Rights Reserved [email or web address]
[2020-01-25 15:14] LABS: Cytoplasmic (C-ANCA) <1:20 titer (Neg:<1:20); Myeloperoxidase AutoAbs <9.0 U/mL (0.0-9.0); Perinuclear (P-ANCA) <1:20 titer (Neg:<1:20); Proteinase-3 AutoAbs Less than 3.5 U/mL (0.0-3.5)
--- NOTE | 2020-01-26 11:54 | EKG ---
Test Reason : CP Blood Pressure : / mmHG Vent. Rate : 064 BPM Atrial Rate : 064 BPM P-R Int : 114 ms QRS Dur : 170 ms QT Int : 456 ms P-R-T Axes : 024 056 -68 degrees QTc Int : 470 ms Atrial-sensed ventricular-paced rhythm Abnormal ECG Confirmed by VINCE SANDERS ([id number]), editorial assistant CARLOS SYKES ([id number]) on 01/26/2020 11:54:10 AM Referred By: Confirmed By:VINCE SANDERS
== END 2020-01-22 18:50 | disposition short-term general hospital (02) | DRG 280 ==
LOC: ERS 01:45 → IMCU/EMU 05:27 → CCU 15:59 → 2NO 01-17 14:50
PROVIDERS: ADMIT Internal Medicine; ATTEND Internal Medicine
PROC: 02HV33Z Insertion of Infusion Device into Superior Vena Cava, Percutaneous Approach (ICD-10-PCS; principal; 2020-01-16)
PROC: 3E033XZ Introduction of Vasopressor into Peripheral Vein, Percutaneous Approach (ICD-10-PCS; 2020-01-16)
PROC: 4B02XTZ Measurement of Cardiac Defibrillator, External Approach (ICD-10-PCS; 2020-01-18)
PROC: 05JY3ZZ Inspection of Upper Vein, Percutaneous Approach (ICD-10-PCS; 2020-01-22)
PROC: B24BZZ4 Ultrasonography of Heart with Aorta, Transesophageal (ICD-10-PCS; 2020-01-22)
DX: T82.7XXA Infection and inflammatory reaction due to other cardiac and vascular devices, implants and grafts, initial encounter (principal); A41.9 Sepsis, unspecified organism; I21.A1 Myocardial infarction type 2; O90.3 Peripartum cardiomyopathy; Z20.828 Contact with and (suspected) exposure to other viral communicable diseases; I50.23 Acute on chronic systolic (congestive) heart failure; R65.20 Severe sepsis without septic shock; N17.9 Acute kidney failure, unspecified; N39.0 Urinary tract infection, site not specified; E87.1 Hypo-osmolality and hyponatremia; E87.2 Acidosis; I42.8 Other cardiomyopathies; I13.0 Hypertensive heart and chronic kidney disease with heart failure and stage 1 through stage 4 chronic kidney disease, or unspecified chronic kidney disease; I95.89 Other hypotension; F17.210 Nicotine dependence, cigarettes, uncomplicated; F15.10 Other stimulant abuse, uncomplicated; F41.9 Anxiety disorder, unspecified; F32.9 Major depressive disorder, single episode, unspecified; Z51.5 Encounter for palliative care; N18.2 Chronic kidney disease, stage 2 (mild); D69.59 Other secondary thrombocytopenia; E87.5 Hyperkalemia; D63.1 Anemia in chronic kidney disease; E53.8 Deficiency of other specified B group vitamins; K04.7 Periapical abscess without sinus; I07.9 Rheumatic tricuspid valve disease, unspecified; Y84.9 Medical procedure, unspecified as the cause of abnormal reaction of the patient, or of later complication, without mention of misadventure at the time of the procedure; M41.9 Scoliosis, unspecified; E83.51 Hypocalcemia; Z88.0 Allergy status to penicillin; Z79.01 Long term (current) use of anticoagulants; Z79.82 Long term (current) use of aspirin; Z79.899 Other long term (current) drug therapy; Z98.51 Tubal ligation status; Z95.810 Presence of automatic (implantable) cardiac defibrillator
CPT/HCPCS: 36415; 36569; 51701; 70450; 70491; 71045; 76705; 76770; 80048; 80053; 80202; 80306; 81003; 81015; 82010; 82306; 82533; 82542; 82550; 82553; 82570; 82607; 82746; 83520; 83605; 83735; 83880; 83930; 83935; 84145; 84156; 84165; 84300; 84443; 84484; 84540; 84703; 85025; 85046; 85060; 85362; 85379; 85384; 85610; 85652; 85730; 86038; 86140; 86225; 86256; 87040; 87086; 87635; 93005; 93306; 93312; 93970; 93975; 96365; 96367; 96375; A4353; C1751; J0171; J0696; J0878; J1200; J1644; J1885; J1940; J2185; J2250; J2260; J2270; J2704; J2765; J2920; J3370; J3475; J3490; J7030; J7050; J7512; Q9967; U0003